=== PATIENT | female | born 1970 | race Caucasian/White ===

== ENCOUNTER 2020-06-01 08:40 | Outpatient (REF) | payer OTHER, SELFPAY ==
--- NOTE | 2020-06-01 08:44 | EMG_ITS ---
HISTORY OF PRESENT ILLNESS: This is a 49-year-old woman with bilateral hand pain and numbness. She is currently on no medications. PHYSICAL EXAMINATION: Muscle tone and strength are normal in all 4 extremities. Deep tendon reflexes symmetrical. Plantar responses are flexor. No Tinel or Phalen sign. IMPRESSION: Rule out carpal tunnel syndrome, rule out tendinitis. Nerve conduction EMG study: Normal electrodiagnostic study of both upper extremities with no evidence of carpal tunnel syndrome or nerve entrapment. Normal EMG of the left C5-T1 innervated muscles. MD RADHA Bishop/ANGELA / [phone]
== END 2020-06-01 08:41 | disposition home or self-care (01) ==
LOC: HO.NEURO 08:40
PROVIDERS: PCP Internal Medicine; Visit Provider Internal Medicine
DX: G56.03 Carpal tunnel syndrome, bilateral upper limbs (principal)
CPT/HCPCS: 95886; 95913

== ENCOUNTER 2021-07-28 10:55 | Outpatient (REF) | payer OTHER, SELFPAY ==
--- NOTE | ~2021-07-28 | XR_ITS ---
EXAMINATION: XR HAND, LEFT CLINICAL INFORMATION: Palmar-sided pain of the thumb and 2nd digit. COMPARISON: None TECHNIQUE: PA, lateral, and oblique views of the left hand. FINDINGS: The bones and soft tissues are normal. No fracture. Alignment is anatomic. Joint spaces are maintained. No erosions or soft tissue calcifications. XR/XR hand LT 2V IMPRESSION: Unremarkable examination.
== END 2021-07-28 10:56 | disposition home or self-care (01) ==
LOC: HO.XRAY 10:55
PROVIDERS: PCP Internal Medicine; Visit Provider Internal Medicine
DX: M79.642 Pain in left hand (principal)
CPT/HCPCS: 73120

== ENCOUNTER → 2022-09-21 09:12 | Outpatient (REF) | payer OTHER, SELFPAY ==
--- NOTE | 2022-09-21 09:19 | ECG_ITS ---
Test Reason : cp Blood Pressure : / mmHG Vent. Rate : 059 BPM Atrial Rate : 059 BPM P-R Int : 140 ms QRS Dur : 082 ms QT Int : 414 ms P-R-T Axes : 037 038 041 degrees QTc Int : 409 ms Sinus bradycardia with sinus arrhythmia Normal ECG When compared with ECG of 10-DEC-2013 14:34, No significant change was found Referred By: Gianni Poe Electronically Signed By:MARGY ACOSTA
== END ==
LOC: HO.CARD 09:12
PROVIDERS: PCP Internal Medicine; Visit Provider Internal Medicine
DX: R07.9 Chest pain, unspecified (principal)
CPT/HCPCS: 93005

== ENCOUNTER 2022-11-02 09:17 | Outpatient (REF) | payer OTHER, SELFPAY ==
[2022-11-02 09:28] LABS: MANUAL DIFF FLAG NO
[2022-11-02 09:49] LABS: Basophils Absolute Auto 0.1 X10*3/uL (0.0-0.2); Eosinophils Absolute Auto 0.2 X10*3/uL (0.0-0.4); Eosinophils Percent Auto 3.3 % (0-4); Hematocrit 44.8 % (37.0-47.0); Hemoglobin 14.5 g/dl (12.0-16.0); Imm Gran Abs Auto 0.01 X10*3/uL (0.00-0.03); Imm Gran Pct Auto 0.1 % (0.0-0.4); Lymphocytes Absolute Auto 1.9 X10*3/uL (1.2-4.9); Lymphocytes Percent Auto 27.2 % (20-40); Mean Corpuscular HGB Conc 32.4 g/dl (31.0-35.0); Mean Corpuscular Hemoglobin 27.9 pg (27.0-33.0); Mean Corpuscular Volume 86.2 fL (80.0-98.0); Mean Platelet Volume 11.1 fL (9.4-12.3); Monocytes Absolute Auto 0.6 X10*3/uL (0.1-1.2); Neutrophils Absolute Auto 4.2 x10*3/uL (2.0-8.3); Neutrophils Percent Auto 60.4 % (45-73); Platelet Count 290 X10*3/uL (160-400); Red Cell Distribution Width 13.5 % (11.0-16.0)
[2022-11-02 10:19] LABS: Alanine Aminotransferase 33 U/L (0-31); Albumin Level 4.5 g/dL (3.5-5.0); Alkaline Phosphatase 113 U/L (39-117); Anion Gap 11 (12-20); Aspartate Amino Transferase 20 U/L (5-31); Bilirubin Total 0.6 mg/dL (0.0-1.0); Blood Urea Nitrogen 17 mg/dL (9-16); Carbon Dioxide 26 mmol/L (22-29); Chloride 108 mmol/L (96-108); Cholesterol 253 mg/dL; Estimated Glomerular Filt Rate > 60; Glucose Fasting 106 mg/dL (60-99); HDL Cholesterol 40 mg/dL; LDL Cholesterol Calculated 171 mg/dl; Potassium 4.5 mmol/L (3.3-5.1); Sodium 140 mmol/L (135-145); Total Protein 7.7 g/dL (6.5-8.0); Triglycerides 210 mg/dL
[2022-11-02 10:34] LABS: Thyroid Stimulating Hormone 1.45 uIU/mL (0.32-4.0)
== END 2022-11-02 09:18 | disposition home or self-care (01) ==
LOC: HO.LAB 09:17
PROVIDERS: PCP Internal Medicine; Visit Provider Internal Medicine
DX: E03.9 Hypothyroidism, unspecified (principal); D64.9 Anemia, unspecified; N28.9 Disorder of kidney and ureter, unspecified; E78.5 Hyperlipidemia, unspecified
CPT/HCPCS: 36415; 80053; 80061; 84443; 85025

== ENCOUNTER → 2022-12-19 12:59 | Outpatient (BNVA) | payer OTHER, SELFPAY | PROVIDERS: PCP Internal Medicine; Referring Provider Internal Medicine; Visit Provider Internal Medicine ==

== ENCOUNTER → 2023-01-18 13:51 | Outpatient (REF) | payer OTHER, SELFPAY ==
--- NOTE | 2023-01-18 13:54 | CA_ITS ---
Transthoracic Echocardiogram Patient (Last, First, Middle): Helene Mejia Ann Gender: Female Date of : 1970 Age: 52 Procedure Date: 01/18/2023 Procedure Type: Transthoracic Echocardiogram Location: OP Height: 170.18 cm Weight: 102.06 kg BSA: 2.13 m2 Heart Rate: bpm BP: 128 / 70 mmHg Hand Printed Circuit Board Assembler: Referring MD: Javier Mccracken MD Laborer Landscape: Dong Ann MD Symptoms: R07.2 - Precordial pain Study Quality: Good ECG Rhythm: Sinus Conclusions: - Normal study Findings Left Ventricle Normal left ventricular size, thickness, and systolic function. The visually estimated ejection fraction is between 60-65%. Diastolic function is normal for age. Peak GLS is -24.5%, within normal limits. Right Ventricle Normal right ventricular cavity size and systolic function. Atria Both atria are normal in size. There is no evidence of interatrial shunt. Aortic Valve Normal aortic valve structure and function. There is no aortic valve stenosis. There is no aortic valve regurgitation. Mitral Valve Normal mitral valve structure and function. There is trace mitral valve regurgitation. There is no mitral valve stenosis. Pulmonic Valve The pulmonic valve is likely normal. There is trace pulmonic valve regurgitation. Tricuspid Valve Normal tricuspid valve structure. There is trace tricuspid valve regurgitation. The right ventricular systolic pressure is normal. The right ventricular systolic pressure is 15 mmHg. Normal right atrial pressure. There is no evidence of pulmonary hypertension. Great Vessels All visible segments of the aorta are normal in size. The pulmonary artery was not well visualized. Venous The inferior vena cava is normal in size and collapses greater than 50% with inspiration. Pericardium/Pleural There is no evidence of pericardial effusion. Prior Study Comparison No prior study available for comparison. Measurements 2D Linear Measurements IVSd: 1.04 0.6-0.9/0.6-1.0 cm LVIDd: 4.57 3.9-5.3/4.2-5.9 cm LVIDd Index: 2.15 2.4-3.2/2.2-3.1 cm/m2 LVIDs: 2.94 2.0-3.6 cm LVPWd: 1.00 0.7-1.1 cm Ao Root: 3.00 2.1-3.5 cm LA Diam: 3.60 2.7-3.8/3.0-4.0 cm LAIDs Index: 1.69 1.5-2.3 cm/m2 LV Mass: 201.10 67-162/88-224 g LV Mass Index: 94.41 43-95/49-115 g/m2 LVOT Diam: 2.20 3.0+(-)1.3 cm Mitral Valve MV Pk E: 0.83 MV PK A: 0.79 MV Decel Time: 187.00 E/A: 1.10 E'Lateral: 11.00 E'Medial: 7.94 E/E' Med: 10.50 E/E' Lat: 7.60 PHT: 55.00 MVA PHT: 4.00 Decel Cocke: 4.45 Aortic Valve AoV Pk Federico: 1.23 AoV Mn Federico: 0.80 AoV VTI: 0.27 AoV Pk Grad: 6.00 Aov Mn Grad: 3.00 CULLEN Cont.VTI: 3.67 LVOT LVOT Pk Federico: 1.16 LVOT Mn Federico: 0.74 LVOT VTI: 0.26 LVOT Pk Grad: 5.00 LVOT Mn Grad: 3.00 LVOT Diam: 2.20 LVOT Area: 3.80 Diastolic Function MV Pk E: 0.83 MV Pk A: 0.79 E/A: 1.10 E'Medial: 7.94 E/E' Med: 10.50 E' Laterial: 11.00 E/E' Lat: 7.60 Right Ventricle TAPSE (mm): 28.00 TVS' Federico: 12.00 Tricuspid Valve TR Pk Federico: 1.74 TR Pk Grad: 12.00 RA Press: 3.00 RVSP: 15.00 Great Vessels Aorta Ao Root-2D: 3.00 2.0-3.7 cm Ao Asc: 3.10 2.1-3.4 cm Pulmonary Valve PV Pk Federico: 1.06 Peak PV Grad: 4.00 Updated in Other Vendor System with Status of Final Dong Ann MD electronically signed on 01/19/2023 3:25:52 PM with status of Final
== END ==
LOC: HO.CARD 13:51
PROVIDERS: PCP Internal Medicine; Visit Provider Internal Medicine
DX: R07.2 Precordial pain (principal); R06.02 Shortness of breath
CPT/HCPCS: 93306; 93356

== ENCOUNTER → 2023-01-18 13:54 | Outpatient (BNV) | payer OTHER, SELFPAY | PROVIDERS: PCP Internal Medicine; Visit Provider Internal Medicine Cardiovascular Disease | DX: R07.2 Precordial pain (principal) | CPT/HCPCS: 93306 ==

== ENCOUNTER 2023-01-21 09:47 | Outpatient (REF) | payer OTHER, SELFPAY ==
[2023-01-21 11:05] LABS: Anion Gap 15 (12-20); Blood Urea Nitrogen 12 mg/dL (9-16); Calcium 9.6 mg/dL (8.4-10.2); Carbon Dioxide 22 mmol/L (22-29); Chloride 110 mmol/L (96-108); Estimated Glomerular Filt Rate > 60; Glucose Random 110 mg/dL (60-115); Potassium 3.8 mmol/L (3.3-5.1); Sodium 143 mmol/L (135-145)
== END 2023-01-21 09:48 | disposition home or self-care (01) ==
LOC: HO.LAB 09:47
PROVIDERS: PCP Internal Medicine; Visit Provider Internal Medicine
DX: R07.2 Precordial pain (principal)
CPT/HCPCS: 36415; 80048

== ENCOUNTER 2023-02-18 08:26 | Outpatient (AMB) | payer OTHER, SELFPAY ==
--- NOTE | 2023-02-18 08:34 | A.OFFPC_ITS ---
Vital Signs 02/18/23 08:35 Height 5 ft 6 in Weight 221 lb 6 oz BMI 35.7 BP 110/68 Blood Pressure Location Lt brachial Position Sitting Pulse 81 Pulse Source Pulse Oximeter Pulse Oximetry (%) 98 Oxygen Delivery Method Room Air Intake Visit Reasons: Follow up, rescheduled from 02/15 Intake Note: Patient is here to follow up on CT results Reed Or Wind Instrument Tuner Required: No Payroll Administrator: Not Required per policy Accompanied by: Self / Same As Patient Allergies peanut Allergy (Unknown, Verified 02/18/23 08:35) Unknown shrimp Allergy (Unknown, Verified 02/18/23 08:35) Unknown Medication List - Last Reconciled 02/18/23 by Gianni Poe MD diphenhydramine-acetaminophen 25-500 mg (Tylenol PM Extra Strength) 1 tab PO BEDTIME PRN loratadine-pseudoephedrine 10-240 mg ER (Claritin-D 24 Hour) 1 tab PO DAILY lorazepam 1 mg PO Q6-8H PRN multivitamin 1 tab PO DAILY naproxen (Naprosyn) 500 mg PO BID PRN Tobacco use date assessed: 02/18/23 Dental Screening Dental Screen Date: 02/18/23 Did you have a dental visit in the last 12 months?: Yes Did you have a dental problem in the last 6 months where you did not have access to dental care?: No Was dental information given to patient?: Patient has dentist HPI Follow up, rescheduled from 02/15 HPI Details had a chest ct to r/o CAD and has a HH and some hepatic steatosis; has improved her diet and losing weight PFSH Medical History (Updated 02/18/23 @ 08:56 by Gianni Poe MD) Carpal tunnel syndrome, bilateral Surgical History No pertinent past surgical history Family History Father CVD (cardiovascular disease) S/P triple vessel bypass Mother Cancer Bladder cancer Sister Thyroid nodule Paternal Grandmother Stroke Social History Housing: House Alcohol intake: current Alcohol intake frequency: holidays/special occasions only Patient Tobacco Use Status: Former Tobacco user e-Cigarette/Vaping Use: Never Used Second Hand Smoke Exposure: No service: No Current occupational status: employed Cognitive needs: No Hearing needs: No Vision needs: Yes (glasses) Questionnaire PHQ-9 Over the last 2 weeks, how often have you been bothered by any of the following problems? Depression Screening Interpretation: Negative Source: Developed by Drs. James Malik, Gregoria San, George Baeza and colleagues, with an educational mario from [employer]. Thrive Questionnaire Date Thrive assessed: 11/02/22 Currently or been in a relationship where the following occur: no concerns reported SATHISH-7 AMB Questionnaire SATHISH-7 Date SATHISH - 7 assessed: 11/02/22 Source: Developed by Drs. James Malik, Gregoria San, George Baeza and colleagues, with an educational mario from [employer]. Review of Systems Const Denies chills, Denies headache(s) and Denies weight loss ENT Denies headache(s) Card Denies chest pain, Denies syncope, Denies irregular heart rhythm and Denies dyspnea Resp Denies chest congestion, Denies cough and Denies dyspnea GI Denies abdominal pain, Denies change in stool character, Denies nausea and Denies vomiting Musc Denies deformity and Denies joint swelling Neuro Denies syncope and Denies headache(s) Physical exam (Primary Care) Vital Signs: Last Vital Signs Pulse 81 02/18/23 08:35 BP 110/68 02/18/23 08:35 Pulse Ox 98 02/18/23 08:35 Oxygen Delivery Method Room Air 02/18/23 08:35 BMI result Body Mass Index 35.7 obesity BMI Assessment/Plan discussion: High BMI High, discussed plan: lifestyle, weight reduction, dietary and physical activity Tobacco/Smoking Status: Tobacco use Status Tobacco use date assessed 02/18/23 02/18/23 08:40 Patient Tobacco Use Status Former Tobacco user 02/18/23 08:40 Tobacco use type 12/27/22 14:10 e-Cigarette/Vaping Use Never Used 02/18/23 08:40 Depression Screening Interpretation: Negative Thrive Assessment: Date of Thrive Assessment Date Thrive assessed 11/02/22 02/18/23 08:40 Currently or been in a relationship where the following occur: no concerns reported Const General: cooperative, healthy appearing and no acute distress Orientation/consciousness: oriented to person, oriented to place and oriented to time HENMT Head: Yes normal to inspection, Yes normocephalic and Yes atraumatic Mouth: Normal oral and palatal mucosa present and tongue normal Throat: Yes posterior oropharynx normal and Yes uvula midline Eyes General: appearance normal, both eyes and all related structures Neck Neck: Yes normal visual inspection, Yes full ROM and Yes no lymphadenopathy Thyroid: Thyroid normal Carotids: normal carotid upstroke Chest Chest palpation & inspection: normal inspection of the chest Resp Effort & Inspection: normal respiratory effort and able to speak in complete sentences Auscultation: clear to auscultation bilaterally Cardio Jugular venous distension: no JVD Palpation: normal PMI Rate: regular rate Rhythm: regular rhythm Heart sounds: S1 normal heart sound present and S2 normal heart sound present GI Inspection: Yes normal to inspection Palpation (GI): Soft to palpation and No hepatosplenomegaly present Auscultation: normal bowel sounds General: Yes no CVA tenderness Back/Spine/Pelvis Back: no CVA tenderness Skin General skin exam: no rashes or lesions noted Neuro General: oriented to person, oriented to place and oriented to time Extrem General: Yes normal to inspection and Yes full ROM Assessment and Plan Assessment & Plan (1) Hiatal hernia: Code(s): K44.9 - Diaphragmatic hernia without obstruction or gangrene Plan: discussed diet (2) Hepatic steatosis: Code(s): K76.0 - Fatty (change of) liver, not elsewhere classified Plan: discussed weight loss (3) Hyperlipidemia: Code(s): E78.5 - Hyperlipidemia, unspecified Plan: discussed diet Orders: Orders Lipid Panel Today E78.5 - Hyperlipidemia, unspecified Comprehensive [place]. Panel Fast Today N28.9 - Disorder of kidney and ureter, unspecified Coding Level of Care Code Est Pt Level 4 (42233) Diagnoses Hiatal hernia K44.9 Hepatic steatosis K76.0 Hyperlipidemia E78.5
[2023-02-18 08:35] VITALS: BP 110/68; PULSE 81; O2SAT 98; BMI 35.7
== END 2023-02-18 09:48 | disposition home or self-care (01) ==
PROVIDERS: PCP Internal Medicine; Visit Provider Internal Medicine
DX: K44.9 Diaphragmatic hernia without obstruction or gangrene (principal); K76.0 Fatty (change of) liver, not elsewhere classified; E78.5 Hyperlipidemia, unspecified
CPT/HCPCS: 99214

== ENCOUNTER 2023-08-02 08:08 | Day surgery (SDC) | payer BC, SELFPAY ==
[2023-07-31 14:29] VITALS: BMI 33.8
--- NOTE | 2023-08-01 11:49 | HO.ANESPROP2 ---
Documented by User: Myesha Mroin NP 08/01/23 11:50 HPI - Anesthesia Eval Consult details Narrative: 52yo F for Colonoscopy PMFSH Active Problems Active Problems: All Active Problems (Updated 07/31/23 @ 14:29 by Roxy Mcdermott RN) Hyperlipidemia (Acute) Hepatic steatosis (Acute) Hiatal hernia (Acute) SOB (shortness of breath) (Acute) Precordial chest pain (Acute) Obesity (Acute) Anxiety (Acute) Physical exam (Acute) Joint pain in both hands (Acute) Carpal tunnel syndrome, bilateral (Acute) Past Medical History Medical History Hyperlipidemia Fatty liver Carpal tunnel syndrome, bilateral Family History Family History Father CVD (cardiovascular disease) S/P triple vessel bypass Mother Cancer Bladder cancer Sister Thyroid nodule Paternal Grandmother Stroke Surgical History Surgical History Hx of wisdom tooth extraction Hx of reduction mammoplasty Social History Social History Housing: House Alcohol intake: current Alcohol intake frequency: holidays/special occasions only Patient Tobacco Use Status: Former Tobacco user Quit Date: 1989 e-Cigarette/Vaping Use: Never Used Second Hand Smoke Exposure: No Use of substances other than those prescribed or required for medical reasons: No Are you DNR?: No Advance Directives: No Advance Directives Information Provided: Yes service: No Current occupational status: employed Cognitive needs: No Hearing needs: No Vision needs: Yes (glasses) Meds Allergies Allergy/AdvReac Type Severity Reaction Status Date / Time peanut Allergy Unknown Unknown Verified 08/02/23 08:26 shrimp Allergy Unknown Unknown Verified 08/02/23 08:26 Home Medications Medication Instructions Recorded Confirmed Last Taken Type multivitamin 1 tab PO DAILY 05/04/20 07/31/23 Unknown History loratadine-pseudoephedrine ER 10 1 tab PO DAILY 02/18/23 07/31/23 Unknown History mg-240 mg tablet,extended [id number] (Claritin-D 24 Hour) Exam Height,Weight and Vital Signs: Height 5 ft 7 in Weight 97.976 kg Assessment and Plan Assessment Anesthesia Assessment: Chart Reviewed Documented by User: Ty Tello MD 08/02/23 10:09 PMF Past Medical History Medical History Hyperlipidemia Fatty liver Carpal tunnel syndrome, bilateral Family History Family History Father CVD (cardiovascular disease) S/P triple vessel bypass Mother Cancer Bladder cancer Sister Thyroid nodule Paternal Grandmother Stroke Family history of problems with anesthesia: No Surgical History Surgical History Hx of wisdom tooth extraction Hx of reduction mammoplasty History of Problems with Anesthesia: No Social History Social History Housing: House Alcohol intake: current Alcohol intake frequency: holidays/special occasions only Patient Tobacco Use Status: Former Tobacco user Quit Date: 1989 e-Cigarette/Vaping Use: Never Used Second Hand Smoke Exposure: No Use of substances other than those prescribed or required for medical reasons: No Are you DNR?: No Advance Directives: No Advance Directives Information Provided: Yes service: No Current occupational status: employed Cognitive needs: No Hearing needs: No Vision needs: Yes (glasses) Meds Allergies Allergy/AdvReac Type Severity Reaction Status Date / Time peanut Allergy Unknown Unknown Verified 08/02/23 08:26 shrimp Allergy Unknown Unknown Verified 08/02/23 08:26 Home Medications Medication Instructions Recorded Confirmed Last Taken Type multivitamin 1 tab PO DAILY 05/04/20 07/31/23 Unknown History loratadine-pseudoephedrine ER 10 1 tab PO DAILY 02/18/23 07/31/23 Unknown History mg-240 mg tablet,extended [id number] (Claritin-D 24 Hour) Exam Airway Mallampati Class: II TM Dist: >3cm Neck ROM: Full Loose/Missing/Broken Teeth: No Heart: rrr+s1s2 Lungs: cta b/l Assessment and Plan Assessment Anesthesia Assessment: Anesthesia Plan Discussed Final Anesthetic Review Family History of Problems with Anesthesia: No History of Problems with Anesthesia: No NPO: Yes ASA Class: II Final Preanesthetic Review: No Changes in Pt Med Stat, Meds/Allgs Chart Reviewed, Consent Obtained/Reviewed and Anes Risks/Benef Reviewed Patient Risk: Intermediate Procedure Risk: Intermediate Assessment/Block/Sedation in SS: Assess/Block/Sedation-SS Anesthetic Plan Anesthetic Plan: MAC: Disposition: Standard PACU
--- OUTSIDE RECORDS SUMMARY | 2023-08-02 08:12 | XMS_ITS | Continuity of Care Document ---
Author Name Unknown Organization [facility] [place] [address] [facility] [place] [address]- Care Team Providers Care Towboat Engineer Name Role Phone Lui RIVERA, Gianni Soriano Primary Care Physician Encounter 06/22/20 - 06/29/20 [facility] [address], [address] [place] [address]- Attending Physician: Jackelin Hartmann NP Admitting Physician: Jackelin Hartmann NP Referring Physician: Jackelin Hartmann NP Allergies, Adverse Reactions, Alerts Substance Reaction Severity Status NKA Active Medications metformin 500 mg oral tablet 2 tablet = 1,000 mg, By Mouth, 2 times a day, s then 2 tablets twice a day, # 120 tablet, 2 Refills, Maintenance, Tablet Start Date: 08/29/12 Stop Date: 11/27/12 Status: Ordered Zyrtec-D 1 tablet, By Mouth, 2 times a day, 0 Refills, Maintenance Start Date: 12/30/12 Status: Ordered
--- OUTSIDE RECORDS SUMMARY | 2023-08-02 08:12 | XMS_ITS | Continuity of Care Document ---
Author Name Unknown Organization [facility] Address [address] [place] [address]- Care Team Providers Care Porcelain Enameler Name Role Phone Gianni Poe MD Primary Care Physician [place] [facility] [place] - 02/09/[address] [address] Allergies, Adverse Reactions, Alerts No Known Allergies Medications metformin 500 mg oral tablet 2 tablet = 1,000 mg, By Mouth, 2 times a day, s then 2 tablets twice a day, # 120 tablet, 2 Refills, Maintenance, Tablet Start Date: 08/29/12 Stop Date: 11/27/12 Status: Ordered Zyrtec-D 1 tablet, By Mouth, 2 times a day, 0 Refills, Maintenance Start Date: 12/30/12 Status: Ordered Patient Care team information Care Team Personnel Name: Gianni Poe MD Position: Reference Physician Member Role: PCP Address: Address: [address] [place] [address]- Care Team Related Persons Name: ANDREA VALLEJO Address: home [address] [place] [address]
--- OUTSIDE RECORDS SUMMARY | 2023-08-02 08:12 | XMS_ITS | Continuity of Care Document ---
Author Name Unknown Organization [facility] [place] Address [address] [facility] [place] [address]- Care Team Providers Care Clinical Trainer Name Role Phone Lui RIVERA, Gianni Soriano Primary Care Physician Encounter 09/28/22 - 10/05/22 [facility] [place] [address] [facility], [address] [place] [address]- Attending Physician: Jackelin Hartmann NP Admitting Physician: Jackelin Hartmann NP Referring Physician: Jackelin Hartmann NP Allergies, Adverse Reactions, Alerts No Known Allergies Medications metformin 500 mg oral tablet 2 tablet = 1,000 mg, By Mouth, 2 times a day, s then 2 tablets twice a day, # 120 tablet, 2 Refills, Maintenance, Tablet Start Date: 08/29/12 Stop Date: 11/27/12 Status: Ordered Zyrtec-D 1 tablet, By Mouth, 2 times a day, 0 Refills, Maintenance Start Date: 12/30/12 Status: Ordered Results Radiology Reports * Exam Date Time Procedure Performing Provider Status 09/28/22 11:17 AM MM Digital Mammo Screening Didi Yañez; Auth (Verified) Notes: (MM Digital Mammo Screening) Reason For Exam: Z12.31 SCREENING RESULT: MM Digital Mammo Screening PROCEDURE: MM Digital Mammo Screening INDICATION: Screening. No known palpable abnormalities. COMPARISON: Dating back to 05/25/2019 TECHNIQUE: Full-field digital CC and MLO 3D tomosynthesis images of both breasts were acquired. Computer-aided detection (CAD) was utilized in the interpretation of this study. DENSITY: The breast tissue is almost entirely fatty. FINDINGS: No suspicious masses, suspicious microcalcifications, or areas of architectural distortion are seen in either breast to suggest malignancy. IMPRESSION: No mammographic evidence of malignancy. RECOMMENDATION: Annual mammographic screening BI-RADS: 1 (Negative) Lay letter mailed to patient WSN: [id number] Ordering Physician: Jackelin Hartmann Dictated By: Jefry Villegas MD Dictated Date/Time: 09/28/22 11:35 am Reviewed By: Jefry Villegas MD Signed By: Jefry Villegas MD Signed Date/Time: 09/28/22 11:35 am Transcribed By: DELANEY Marine Extension Agent Date/Time: 09/28/22 11:35 am Birads: MG Breast Screening * BHSPowerscribe , CIS S: TRANSCRIBE Jefry Villegas MD: VERIFY Event Display: Result: Authored Date: [id number] PROCEDURE: MM Digital Mammo Screening INDICATION: Screening. No known palpable abnormalities. COMPARISON: Dating back to 05/25/2019 TECHNIQUE: Full-field digital CC and MLO 3D tomosynthesis images of both breasts were acquired. Computer-aided detection (CAD) was utilized in the interpretation of this study. DENSITY: The breast tissue is almost entirely fatty. FINDINGS: No suspicious masses, suspicious microcalcifications, or areas of architectural distortion are seen in either breast to suggest malignancy. IMPRESSION: No mammographic evidence of malignancy. RECOMMENDATION: Annual mammographic screening BI-RADS: 1 (Negative) Lay letter mailed to patient WSN: [id number] Ordering Physician: Jackelin Hartmann Dictated By: Jefry Villegas MD Dictated Date/Time: 09/28/22 11:35 am Reviewed By: Jefry Villegas MD Signed By: Jefry Villegas MD Signed Date/Time: 09/28/22 11:35 am Transcribed By: DELANEY Marine Extension Agent Date/Time: 09/28/22 11:35 am Birads: Patient Care team information Care Team Personnel Name: Gianni Poe MD Position: Reference Physician Member Role: PCP Address: Address: [address] [place] [address]- Care Team Related Persons Name: ANDREA VALLEJO Address: home [address] [place] [id number]
--- OUTSIDE RECORDS SUMMARY | 2023-08-02 08:12 | XMS_ITS | Continuity of Care Document ---
Author Name Unknown Organization [facility] [place] Address [address] [facility] [place] [address]- Care Team Providers Care Wire Brush Operator Name Role Phone Lui RIVERA, Gianni Soriano Primary Care Physician Encounter 07/28/21 - 08/04/21 [facility] [address], [address] [place] [address]- Attending Physician: Jackelin Hartmann NP Admitting Physician: [...]
[2023-08-02 08:28] VITALS: BMI 34.3
[2023-08-02 08:35] LABS: UPreg QC Valid YES; Urine Pregnancy NEGATIVE (NEGATIVE)
[2023-08-02 08:57] VITALS: BP 165/91; PULSE 87; RESP 15; TEMP 36.7; O2SAT 97
[2023-08-02] MEDS: Lactated Ringers 1,000 ML 100 ML IVCONT (08:58)
[2023-08-02 10:00] VITALS: BP 127/85; PULSE 74; RESP 10; TEMP 36.6; O2SAT 95
--- NOTE | 2023-08-02 10:04 | P.BOP_ITS ---
Brief Operative Note Date of Service: 08/02/23 Pre-op diagnosis: Screening Post-op diagnosis: other (Diverticulosis) Procedure: Colonoscopy to the cecum and TI Surgeon: James Yang MD Anesthesia: MAC Was an Ethnoarchaeologist used for this Procedure?: No Estimated blood loss (mL): 0 Pathology: none sent Condition: stable Disposition: PACU
[2023-08-02 10:15] VITALS: BP 138/89; PULSE 74; RESP 16; TEMP 36.3; O2SAT 96
--- NOTE | 2023-08-02 10:35 | OP_ITS ---
DATE OF SERVICE: 08/02/2023 SURGEON: James Yang MD INDICATIONS: The patient presents for evaluation of colorectal cancer screening. Full consent obtained from her for this, including risks of bleeding and perforation. PREOPERATIVE DIAGNOSIS: Colorectal cancer screening. POSTOPERATIVE DIAGNOSIS: PROCEDURE PERFORMED: Colonoscopy to cecum and terminal ileum. ESTIMATED BLOOD LOSS: COMPLICATIONS: ANESTHESIA: Monitored anesthesia care. ASSISTANTS: SPECIMENS: POSTOPERATIVE DIAGNOSES: Colorectal cancer screening, diverticulosis, and internal hemorrhoids. DESCRIPTION OF PROCEDURE: The patient was placed in the left lateral decubitus position. The digital rectal exam revealed no abnormalities. The Olympus video pediatric colonoscope was entered into the rectum and advanced easily to the cecum. Once in the cecum, I did identify normal-appearing cecal pouch with appendiceal orifice and a normal-appearing ileocecal valve. The terminal ileum was cannulated and appeared normal. The scope withdrawn back in the colon. The entire cecum and ileocecal valve appeared normal. The scope was slowly withdrawn assessing all mucosal surfaces carefully. Preparation became very good after a lot of irrigation and suctioning. I did not visualize any sign of polyps, colitis, nor angiodysplasia. There was a mild amount of sigmoid diverticulosis. In the rectum, scope was retroflexed visualizing internal hemorrhoids, but no other pathology. The rectal mucosa appeared normal. The scope was straightened and withdrawn from the patient. She tolerated the procedure well and was returned to recovery area in stable condition. IMPRESSION: 1. Mild diverticulosis. 2. Internal hemorrhoids. PLAN: Given the negative exam and no family history of colon cancer, I would recommend a followup coloscopy in 10 years. She will otherwise see me on a p.r.n. basis. MD KERRY Cheng/ANGELA / [phone]
== END 2023-08-02 10:50 | disposition home or self-care (01) ==
PROVIDERS: Anesthesiology; PCP Internal Medicine; Visit Provider Internal Medicine
PROC: 0DJD8ZZ Inspection of Lower Intestinal Tract, Via Natural or Artificial Opening Endoscopic (ICD-10-PCS; CPT 45378; principal; 2023-08-02 09:00)
DX: Z12.11 Encounter for screening for malignant neoplasm of colon (principal); K57.30 Diverticulosis of large intestine without perforation or abscess without bleeding; K64.8 Other hemorrhoids; E78.5 Hyperlipidemia, unspecified; Z79.899 Other long term (current) drug therapy
CPT/HCPCS: 45378; 81025; J2704

== ENCOUNTER 2023-12-13 08:44 | Outpatient (AMB) | payer BC, SELFPAY ==
[2023-12-13 08:46] VITALS: BP 142/86; PULSE 52; O2SAT 98; BMI 36.0
--- NOTE | 2023-12-13 08:46 | A.OFFPC_ITS ---
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 Accompanied by: Self / Same As Patient Allergies peanut Allergy (Unknown, Verified 12/13/23 08:47) Unknown shrimp Allergy (Unknown, Verified 12/13/23 08:47) Unknown Medication List - Last Reconciled 12/13/23 by Gianni Poe MD loratadine-pseudoephedrine 10-240 mg ER (Claritin-D 24 Hour) 1 tab PO DAILY multivitamin 1 tab PO DAILY naproxen (Naprosyn) 500 mg PO BID PRN Tobacco use date assessed: 12/13/23 Dental Screening Dental Screen Date: 12/13/23 Did you have a dental visit in the last 12 months?: No Did you have a dental problem in the last 6 months where you did not have access to dental care?: No Was dental information given to patient?: Patient has dentist HPI PE HPI Details healthy PFSH Medical History Hyperlipidemia Fatty liver Carpal tunnel syndrome, bilateral Surgical History Hx of wisdom tooth extraction Hx of reduction mammoplasty Family History Father CVD (cardiovascular disease) S/P triple vessel bypass Mother Cancer Bladder cancer Sister Thyroid nodule Paternal Grandmother Stroke Social History Housing: House Alcohol intake: current Alcohol intake frequency: holidays/special occasions only Patient Tobacco Use Status: Former Tobacco user e-Cigarette/Vaping Use: Never Used Second Hand Smoke Exposure: No service: No Current occupational status: employed Cognitive needs: No Hearing needs: No Vision needs: Yes (glasses) Questionnaire PHQ-9 Over the last 2 weeks, how often have you been bothered by any of the following problems? 1. Little interest or pleasure in doing things: not at all 2. Feeling down, depressed, or hopeless: not at all 3. Trouble falling or staying asleep, or sleeping too much: not at all 4. Feeling tired or having little energy: not at all 5. Poor appetite or overeating: not at all 6. Feeling bad about yourself - or that you are a failure or have let yourself or your family down: not at all 7. Trouble concentrating on things, such as reading the newspaper or watching television: not at all 8. Moving or speaking so slowly that other people could have noticed. Or the opposite - being so fidgety or restless that you have been moving around a lot more than usual: not at all 9. Thoughts that you would be better off or of hurting yourself in some way: not at all Total score: 0 Depression Screening Interpretation: Negative Depression Screening Done: Yes 82838 - PHQ-9 Billing: Yes Source: Developed by Drs. James Malik, Gregoria San, George Baeza and colleagues, with an educational mario from [employer]. Thrive Questionnaire Date Thrive assessed: 12/13/23 I am a: Patient What is your living situation today?: I have a steady place to live Within the past 12 months, did the food you bought not last and you didn't have the money to get more?: Never true Within the past 12 months, did you worry whether your food would run out before you got money to buy more?: Never true Do you have trouble paying for medicines?: No Do you have trouble getting transportation to medical appointments?: No Do you have trouble paying your heating and electricity bill?: No Do you have trouble taking care of your child, family member or friend?: No Do you have trouble with day-to-day activities such as bathing, preparing meals, shopping, managing finances, etc.?: No Are you currently unemployed and looking for a job?: No Are you interested in more education?: No Please select the resources that you would like help with: None Currently or been in a relationship where the following occur: no concerns reported THRIVE Score: 0 AUDIT C Alcohol Use Questionnaire (AUDIT-C) 1. How often do you have a drink containing alcohol?: 2-4 times a month 2. How many drinks containing alcohol do you have on a typical day when you are drinking?: 1 or 2 3. How often do you have six or more drinks on one occasion?: Never Total Score: 2 Score Reviewed/Action Taken: Yes SATHISH-7 AMB Questionnaire SATHISH-7 Date SATHISH - 7 assessed: 12/13/23 Feeling nervous, anxious, or on edge: 1 = Several days Not being able to stop or control worryin = Several days (patient states i dont know ) Worrying too much about different things: 0 = Not at all Trouble relaxin = Not at all Being so restless that it is hard to sit still: 0 = Not at all Becoming easily annoyed or irritable: 0 = Not at all Feeling afraid as if something awful might happen: 0 = Not at all Total SATHISH-7 score (0-4 normal; 5-9 mild; 10-14 moderate; 15-21 severe): 2 Source: Developed by Drs. James Malik, Gregoria San, George Baeza and colleagues, with an educational mario from [employer]. SATHISH-7 Assessment Billing SATHISH-7 Assessment Tool: SATHISH-7 Assessment 96790 Review of Systems Const Denies chills, Denies fatigue, Denies headache(s) and Denies weight loss Eyes Denies change in vision, Denies diplopia and Denies eye pain ENT Denies vertigo, Denies dizziness, Denies headache(s) and Denies nasal discharge Card Denies chest pain, Denies rapid heart rate and Denies dyspnea on exertion Resp Denies chest congestion, Denies cough, Denies pain with cough and Denies dyspnea on exertion GI Denies abdominal pain, Denies hematochezia and Denies change in bowel habits Musc Denies myalgias, Denies arthralgias and Denies joint swelling Skin/Breast Denies lesions and Denies unusual bruising Neuro Denies vertigo, Denies dizziness, Denies headache(s) and Denies focal weakness Endo Denies fatigue Physical exam (Primary Care) Vital Signs: Last Vital Signs Pulse 52 12/13/23 08:46 BP 142/86 H 12/13/23 08:46 Pulse Ox 98 12/13/23 08:46 Oxygen Delivery Method Room Air 12/13/23 08:46 BMI result Body Mass Index 36.0 Tobacco/Smoking Status: Tobacco use Status Tobacco use date assessed 12/13/23 12/13/23 08:48 Patient Tobacco Use Status Former Tobacco user 12/13/23 08:48 Tobacco use type 12/27/22 14:10 e-Cigarette/Vaping Use Never Used 12/13/23 08:48 PHQ-9: PHQ-9 Score PHQ-9: Total score 0 12/13/23 08:48 Depression Screening Interpretation: Negative Thrive Assessment: Date of Thrive Assessment Date Thrive assessed 12/13/23 12/13/23 08:48 Currently or been in a relationship where the following occur: no concerns reported Const General: cooperative, healthy appearing and no acute distress Orientation/consciousness: oriented to person, oriented to place and oriented to time HENMT Head: Yes normal to inspection, Yes normocephalic and Yes atraumatic Mouth: Normal oral and palatal mucosa present and tongue normal Throat: Yes posterior oropharynx normal and Yes uvula midline Eyes General: appearance normal, both eyes and all related structures Neck Neck: Yes normal visual inspection, Yes full ROM and Yes no lymphadenopathy Thyroid: Thyroid normal Carotids: normal carotid upstroke Chest Chest palpation & inspection: normal inspection of the chest Resp Effort & Inspection: normal respiratory effort and able to speak in complete sentences Auscultation: clear to auscultation bilaterally Cardio Jugular venous distension: no JVD Palpation: normal PMI Rate: regular rate Rhythm: regular rhythm Heart sounds: S1 normal heart sound present and S2 normal heart sound present GI Inspection: Yes normal to inspection Palpation (GI): Soft to palpation and No hepatosplenomegaly present Auscultation: normal bowel sounds General: Yes no CVA tenderness Back/Spine/Pelvis Back: no CVA tenderness Skin General skin exam: no rashes or lesions noted Neuro General: oriented to person, oriented to place and oriented to time Extrem General: Yes normal to inspection and Yes full ROM Assessment and Plan Assessment & Plan (1) Physical exam: Code(s): Z00.00 - Encounter for general adult medical examination without abnormal fin dings Plan: stable; do labs Orders: Orders Lipid Panel Today Z13.220 - Encounter for screening for lipoid disorders Thyroid Stimulating Hormone Today Z13.29 - Encounter for screening for other suspected endocrine disorder Complete Blood Count Auto Diff Today Z13.0 - Encounter for screening for diseases of the blood and blood-forming organs and certain disorders involving the immune mechanism Comprehensive [place]. Panel Fast Today Z13.9 - Encounter for screening, unspecified Coding Level of Care Code Est Pt Prev Care 40-64y(11325) Diagnoses Physical exam Z00.00 Additional Codes SATHISH-7 Assessment Billing - SATHISH-7 Assessment Tool: SATHISH-7 Assessment 60129 ([id number])
== END 2023-12-13 09:15 | disposition home or self-care (01) ==
PROVIDERS: PCP Internal Medicine; Visit Provider Internal Medicine
DX: Z00.00 Encounter for general adult medical examination without abnormal findings (principal)
CPT/HCPCS: 99396

== ENCOUNTER 2023-12-21 09:49 | Outpatient (REF) | payer BC, SELFPAY ==
[2023-12-21 11:17] LABS: MANUAL DIFF FLAG NO
[2023-12-21 11:22] LABS: Basophils Absolute Auto 0.1 X10*3/uL (0.0-0.2); Basophils Percent Auto 0.8 % (0-2); Eosinophils Absolute Auto 0.2 X10*3/uL (0.0-0.4); Eosinophils Percent Auto 3.6 % (0-4); Hemoglobin 13.5 g/dl (12.0-16.0); Imm Gran Abs Auto 0.02 X10*3/uL (0.00-0.03); Imm Gran Pct Auto 0.3 % (0.0-0.4); Lymphocytes Absolute Auto 2.1 X10*3/uL (1.2-4.9); Lymphocytes Percent Auto 31.2 % (20-40); Mean Corpuscular HGB Conc 32.1 g/dl (31.0-35.0); Mean Corpuscular Hemoglobin 28.4 pg (27.0-33.0); Mean Corpuscular Volume 88.4 fL (80.0-98.0); Mean Platelet Volume 11.7 fL (9.4-12.3); Monocytes Absolute Auto 0.6 X10*3/uL (0.1-1.2); Monocytes Percent Auto 9.4 % (2-11); Neutrophils Absolute Auto 3.6 x10*3/uL (2.0-8.3); Neutrophils Percent Auto 54.7 % (45-73); Platelet Count 265 X10*3/uL (160-400); Red Blood Count 4.75 X10*6/uL (4.20-5.50); Red Cell Distribution Width 13.7 % (11.0-16.0); White Blood Count 6.6 X10*3/uL (4.8-10.8)
[2023-12-21 11:48] LABS: Alanine Aminotransferase 31 U/L (0-31); Albumin Level 4.3 g/dL (3.5-5.0); Alkaline Phosphatase 112 U/L (39-117); Anion Gap 12 (12-20); Aspartate Amino Transferase 21 U/L (5-31); Bilirubin Total 0.5 mg/dL (0.0-1.0); Blood Urea Nitrogen 15 mg/dL (9-16); Calcium 9.8 mg/dL (8.4-10.2); Carbon Dioxide 25 mmol/L (22-29); Chloride 109 mmol/L (96-108); Cholesterol 262 mg/dL (<200); Estimated Glomerular Filt Rate > 60; Glucose Fasting 104 mg/dL (60-99); HDL Cholesterol 43 mg/dL (>40); LDL Cholesterol Calculated 181 mg/dL (<100); Potassium 4.1 mmol/L (3.3-5.1); Sodium 142 mmol/L (135-145); Total Protein 7.7 g/dL (6.5-8.0); Triglycerides 194 mg/dL (<150)
[2023-12-21 12:08] LABS: Thyroid Stimulating Hormone 2.01 uIU/mL (0.32-4.0)
== END 2023-12-21 09:50 | disposition home or self-care (01) ==
LOC: HO.HMGCLDS 09:49
PROVIDERS: PCP Internal Medicine; Visit Provider Internal Medicine
DX: Z13.0 Encounter for screening for diseases of the blood and blood-forming organs and certain disorders involving the immune mechanism (principal); Z13.9 Encounter for screening, unspecified; Z13.220 Encounter for screening for lipoid disorders; Z13.29 Encounter for screening for other suspected endocrine disorder
CPT/HCPCS: 36415; 80053; 80061; 84443; 85025

== ENCOUNTER 2024-06-22 08:47 | Outpatient (AMB) | payer BC, SELFPAY ==
[2024-06-22 08:57] VITALS: BP 138/90; PULSE 84; O2SAT 96; BMI 37.0
--- NOTE | 2024-06-22 08:57 | A.OFFPC_ITS ---
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 Accompanied by: Self / Same As Patient Allergies peanut Allergy (Unknown, Verified 06/22/24 09:00) Unknown shrimp Allergy (Unknown, Verified 06/22/24 09:00) Unknown Medication List - Last Reconciled 06/22/24 by Gianni Poe MD loratadine-pseudoephedrine 10-240 mg ER (Claritin-D 24 Hour) 1 tab PO DAILY multivitamin 1 tab PO DAILY Tobacco use date assessed: 06/22/24 Dental Screening Dental Screen Date: 06/22/24 Did you have a dental visit in the last 12 months?: No Did you have a dental problem in the last 6 months where you did not have access to dental care?: No Was dental information given to patient?: Patient declined HPI [facility] 07/22 nauroma surgery HPI Details Having right foot neuroma surgery; healthy; no history of CAD PFSH Medical History Hyperlipidemia Fatty liver Carpal tunnel syndrome, bilateral Surgical History Hx of wisdom tooth extraction Hx of reduction mammoplasty Family History Father CVD (cardiovascular disease) S/P triple vessel bypass Mother Cancer Bladder cancer Sister Thyroid nodule Paternal Grandmother Stroke Social History Housing: House Alcohol intake: current Alcohol intake frequency: holidays/special occasions only Patient Tobacco Use Status: Former Tobacco user e-Cigarette/Vaping Use: Never Used Second Hand Smoke Exposure: No service: No Current occupational status: employed Cognitive needs: No Hearing needs: No Vision needs: Yes (glasses) Questionnaire PHQ-9 Over the last 2 weeks, how often have you been bothered by any of the following problems? 1. Little interest or pleasure in doing things: not at all 2. Feeling down, depressed, or hopeless: not at all 3. Trouble falling or staying asleep, or sleeping too much: not at all 4. Feeling tired or having little energy: not at all 5. Poor appetite or overeating: not at all 6. Feeling bad about yourself - or that you are a failure or have let yourself or your family down: not at all 7. Trouble concentrating on things, such as reading the newspaper or watching television: not at all 8. Moving or speaking so slowly that other people could have noticed. Or the opposite - being so fidgety or restless that you have been moving around a lot more than usual: not at all 9. Thoughts that you would be better off or of hurting yourself in some way: not at all Total score: 0 Depression Screening Interpretation: Negative Depression Screening Done: Yes 59419 - PHQ-9 Billing: Yes Source: Developed by Drs. James Malik, Gregoria San, George Baeza and colleagues, with an educational mario from [employer]. Thrive Questionnaire Date Thrive assessed: 06/22/24 I am a: Patient What is your living situation today?: I have a steady place to live Within the past 12 months, did the food you bought not last and you didn't have the money to get more?: Never true Within the past 12 months, did you worry whether your food would run out before you got money to buy more?: Never true Do you have trouble paying for medicines?: No Do you have trouble getting transportation to medical appointments?: No Do you have trouble paying your heating and electricity bill?: No Do you have trouble taking care of your child, family member or friend?: No Do you have trouble with day-to-day activities such as bathing, preparing meals, shopping, managing finances, etc.?: No Are you currently unemployed and looking for a job?: No Are you interested in more education?: No Please select the resources that you would like help with: None THRIVE Score: 0 AUDIT C Alcohol Use Questionnaire (AUDIT-C) 1. How often do you have a drink containing alcohol?: Never 3. How often do you have six or more drinks on one occasion?: Never Total Score: 0 SATHISH-7 AMB Questionnaire SATHISH-7 Date SATHISH - 7 assessed: 06/22/24 Feeling nervous, anxious, or on edge: 1 = Several days Not being able to stop or control worryin = Several days (patient states i dont know ) Worrying too much about different things: 0 = Not at all Trouble relaxin = Not at all Being so restless that it is hard to sit still: 0 = Not at all Becoming easily annoyed or irritable: 0 = Not at all Feeling afraid as if something awful might happen: 0 = Not at all Total SATHISH-7 score (0-4 normal; 5-9 mild; 10-14 moderate; 15-21 severe): 2 Source: Developed by Drs. James Malik, Gregoria San, George Baeza and colleagues, with an educational mario from [employer]. SATHISH-7 Assessment Billing SATHISH-7 Assessment Tool: SATHISH-7 Assessment 21502 Review of Systems Const Denies chills, Denies fatigue, Denies headache(s) and Denies weight loss Eyes Denies change in vision, Denies diplopia and Denies eye pain ENT Denies vertigo, Denies dizziness, Denies headache(s) and Denies nasal discharge Card Denies chest pain, Denies rapid heart rate and Denies dyspnea on exertion Resp Denies chest congestion, Denies cough, Denies pain with cough and Denies dyspnea on exertion GI Denies abdominal pain, Denies hematochezia and Denies change in bowel habits Musc Denies myalgias, Denies arthralgias and Denies joint swelling Skin/Breast Denies lesions and Denies unusual bruising Neuro Denies vertigo, Denies dizziness, Denies headache(s) and Denies focal weakness Endo Denies fatigue Physical exam (Primary Care) Vital Signs: Last Vital Signs Pulse 84 06/22/24 08:57 BP 138/90 H 06/22/24 08:57 Pulse Ox 96 06/22/24 08:57 Oxygen Delivery Method Room Air 06/22/24 08:57 BMI result Body Mass Index 37.0 Tobacco/Smoking Status: Tobacco use Status Tobacco use date assessed 06/22/24 06/22/24 09:02 Patient Tobacco Use Status Former Tobacco user 06/22/24 09:02 Tobacco use type 12/27/22 14:10 e-Cigarette/Vaping Use Never Used 06/22/24 09:02 PHQ-9: PHQ-9 Score PHQ-9: Total score 0 06/22/24 09:02 Depression Screening Interpretation: Negative Thrive Assessment: Date of Thrive Assessment Date Thrive assessed 06/22/24 06/22/24 09:02 Const General: cooperative, healthy appearing and no acute distress Orientation/consciousness: oriented to person, oriented to place and oriented to time HENMT Head: Yes normal to inspection, Yes normocephalic and Yes atraumatic Mouth: Normal oral and palatal mucosa present and tongue normal Throat: Yes posterior oropharynx normal and Yes uvula midline Eyes General: appearance normal, both eyes and all related structures Neck Neck: Yes normal visual inspection, Yes full ROM and Yes no lymphadenopathy Thyroid: Thyroid normal Carotids: normal carotid upstroke Chest Chest palpation & inspection: normal inspection of the chest Resp Effort & Inspection: normal respiratory effort and able to speak in complete sentences Auscultation: clear to auscultation bilaterally Cardio Jugular venous distension: no JVD Palpation: normal PMI Rate: regular rate Rhythm: regular rhythm Heart sounds: S1 normal heart sound present and S2 normal heart sound present GI Inspection: Yes normal to inspection Palpation (GI): Soft to palpation and No hepatosplenomegaly present Auscultation: normal bowel sounds General: Yes no CVA tenderness Back/Spine/Pelvis Back: no CVA tenderness Skin General skin exam: no rashes or lesions noted Neuro General: oriented to person, oriented to place and oriented to time Extrem General: Yes normal to inspection and Yes full ROM Coding Level of Care Code Est Pt Level 4 (35853) Diagnoses Preop exam for internal medicine Z01.818 Additional Codes SATHISH-7 Assessment Billing - SATHISH-7 Assessment Tool: SATHISH-7 Assessment 73832 ([id number]) PHQ-9 - 43372 - PHQ-9 Billing: Yes ([id number]) Assessment & Plan Assessment & Plan (1) Preop exam for internal medicine: Code(s): Z01.818 - Encounter for other preprocedural examination Category: Medical Plan: low risk for cardiovascular complications; cleared for surgery
== END 2024-06-22 09:09 | disposition home or self-care (01) ==
PROVIDERS: PCP Internal Medicine; Visit Provider Internal Medicine
DX: Z01.818 Encounter for other preprocedural examination (principal)

== ENCOUNTER → 2024-06-22 08:47 | Outpatient (BNVA) | payer BC, SELFPAY | PROVIDERS: PCP Internal Medicine; Visit Provider Internal Medicine | DX: Z01.818 Encounter for other preprocedural examination (principal); D36.13 Benign neoplasm of peripheral nerves and autonomic nervous system of lower limb, including hip | CPT/HCPCS: 96127 ==

== ENCOUNTER 2024-06-27 07:43 | Outpatient (REF) | payer BC, SELFPAY ==
[2024-06-27 07:51] LABS: MANUAL DIFF FLAG NO
[2024-06-27 08:31] LABS: Basophils Absolute Auto 0.1 X10*3/uL (0.0-0.2); Eosinophils Absolute Auto 0.4 X10*3/uL (0.0-0.4); Eosinophils Percent Auto 5.2 % (0-4); Hematocrit 42.5 % (37.0-47.0); Hemoglobin 13.8 g/dl (12.0-16.0); Imm Gran Abs Auto 0.02 X10*3/uL (0.00-0.03); Imm Gran Pct Auto 0.3 % (0.0-0.4); Lymphocytes Absolute Auto 2.3 X10*3/uL (1.2-4.9); Lymphocytes Percent Auto 32.7 % (20-40); Mean Corpuscular HGB Conc 32.5 g/dl (31.0-35.0); Mean Corpuscular Volume 86.2 fL (80.0-98.0); Mean Platelet Volume 10.9 fL (9.4-12.3); Monocytes Absolute Auto 0.7 X10*3/uL (0.1-1.2); Monocytes Percent Auto 9.5 % (2-11); Neutrophils Absolute Auto 3.6 x10*3/uL (2.0-8.3); Neutrophils Percent Auto 51.3 % (45-73); Platelet Count 276 X10*3/uL (160-400); Red Blood Count 4.93 X10*6/uL (4.20-5.50); Red Cell Distribution Width 13.4 % (11.0-16.0); White Blood Count 7.1 X10*3/uL (4.8-10.8)
[2024-06-27 08:37] LABS: Anion Gap 13 (12-20); Blood Urea Nitrogen 16 mg/dL (9-16); Calcium 9.7 mg/dL (8.4-10.2); Carbon Dioxide 25 mmol/L (22-29); Chloride 110 mmol/L (96-108); Estimated Glomerular Filt Rate > 60; Glucose Fasting 113 mg/dL (60-99); Sodium 144 mmol/L (135-145)
== END 2024-06-27 07:44 | disposition home or self-care (01) ==
LOC: HO.LAB 07:43
PROVIDERS: PCP Internal Medicine; Visit Provider Internal Medicine
DX: Z01.818 Encounter for other preprocedural examination (principal); Z13.0 Encounter for screening for diseases of the blood and blood-forming organs and certain disorders involving the immune mechanism
CPT/HCPCS: 36415; 80048; 85025

== ENCOUNTER → 2024-07-06 07:54 | Outpatient (REF) | payer BC, SELFPAY ==
--- NOTE | 2024-07-06 07:59 | ECG_ITS ---
Test Reason : pre op Blood Pressure : */* mmHG Vent. Rate : 60 BPM Atrial Rate : 60 BPM P-R Int : 144 ms QRS Dur : 82 ms QT Int : 408 ms P-R-T Axes : 50 29 28 degrees QTcB Int : 408 ms Normal sinus rhythm with sinus arrhythmia Normal ECG When compared with ECG of 21-Sep-2022 09:30, No significant change was found Referred By: Gianni Poe Electronically Signed By: Akira Jauregui
== END ==
LOC: HO.CARD 07:54
PROVIDERS: PCP Internal Medicine; Visit Provider Internal Medicine
DX: Z01.818 Encounter for other preprocedural examination (principal)
CPT/HCPCS: 93005

== ENCOUNTER → 2024-07-06 07:59 | Outpatient (BNV) | payer BC, SELFPAY | PROVIDERS: PCP Internal Medicine; Visit Provider Internal Medicine Cardiovascular Disease | DX: I49.9 Cardiac arrhythmia, unspecified (principal) | CPT/HCPCS: 93010 ==

== ENCOUNTER 2024-08-05 09:21 | Outpatient (AMB) | payer BC, SELFPAY ==
--- NOTE | 2024-08-05 09:26 | MHC.PC.OV ---
Vital Signs 08/05/24 09:28 Height 5 ft 7 in Weight 239 lb 4 oz BMI 37.5 BP 140/90 H Blood Pressure Location Lt brachial Position Sitting Pulse 89 Pulse Source Pulse Oximeter Temp 97.1 F Temp Source Skin Pulse Oximetry (%) 99 Oxygen Delivery Method Room Air Intake Visit Reasons: Blood Pressure Intake Note: Patient is here to follow up on Blood pressure. Renovator Machine Operator Required: No Car Mover: Not Required per policy Accompanied by: Self / Same As Patient Allergies peanut Allergy (Unknown, Verified 08/05/24 09:27) Unknown shrimp Allergy (Unknown, Verified 08/05/24 09:27) Unknown Medication List - Last Reconciled 08/05/24 by Gianni Poe MD loratadine-pseudoephedrine 10-240 mg ER (Claritin-D 24 Hour) 1 tab PO DAILY lorazepam 1 mg PO TID PRN multivitamin 1 tab PO DAILY Tobacco use date assessed: 08/05/24 Dental Screening Dental Screen Date: 08/05/24 Did you have a dental visit in the last 12 months?: No Did you have a dental problem in the last 6 months where you did not have access to dental care?: No Was dental information given to patient?: No HPI Blood Pressure HPI Details BP 150/92; was elevated 190 at pre op and surgery postponed [facility] Medical History Hyperlipidemia Fatty liver Carpal tunnel syndrome, bilateral Surgical History Hx of wisdom tooth extraction Hx of reduction mammoplasty Family History Father CVD (cardiovascular disease) S/P triple vessel bypass Mother Cancer Bladder cancer Sister Thyroid nodule Paternal Grandmother Stroke Social History Housing: House Alcohol intake: current Alcohol intake frequency: holidays/special occasions only Patient Tobacco Use Status: Former Tobacco user e-Cigarette/Vaping Use: Never Used Second Hand Smoke Exposure: No service: No Current occupational status: employed Cognitive needs: No Hearing needs: No Vision needs: Yes (glasses) Questionnaire PHQ-9 Over the last 2 weeks, how often have you been bothered by any of the following problems? 1. Little interest or pleasure in doing things: not at all 2. Feeling down, depressed, or hopeless: not at all 3. Trouble falling or staying asleep, or sleeping too much: not at all 4. Feeling tired or having little energy: not at all 5. Poor appetite or overeating: not at all 6. Feeling bad about yourself - or that you are a failure or have let yourself or your family down: not at all 7. Trouble concentrating on things, such as reading the newspaper or watching television: not at all 8. Moving or speaking so slowly that other people could have noticed. Or the opposite - being so fidgety or restless that you have been moving around a lot more than usual: not at all 9. Thoughts that you would be better off or of hurting yourself in some way: not at all Total score: 0 Depression Screening Interpretation: Negative Depression Screening Done: Yes Source: Developed by Drs. James Malik, Gregoria San, George Baeza and colleagues, with an educational mario from [employer]. Thrive Questionnaire Date Thrive assessed: 08/05/24 I am a: Patient What is your living situation today?: I have a steady place to live Within the past 12 months, did the food you bought not last and you didn't have the money to get more?: Never true Within the past 12 months, did you worry whether your food would run out before you got money to buy more?: Never true Do you have trouble paying for medicines?: No Do you have trouble getting transportation to medical appointments?: No Do you have trouble paying your heating and electricity bill?: No Do you have trouble taking care of your child, family member or friend?: No Do you have trouble with day-to-day activities such as bathing, preparing meals, shopping, managing finances, etc.?: No Are you currently unemployed and looking for a job?: No Are you interested in more education?: No Please select the resources that you would like help with: None Currently or been in a relationship where the following occur: No concerns reported THRIVE Score: 0 AUDIT C Alcohol Use Questionnaire (AUDIT-C) 1. How often do you have a drink containing alcohol?: Never Total Score: 0 SATHISH-7 AMB Questionnaire SATHISH-7 Date SATHISH - 7 assessed: 08/05/24 Feeling nervous, anxious, or on edge: 0 = Not at all Not being able to stop or control worryin = Not at all Worrying too much about different things: 0 = Not at all Trouble relaxin = Not at all Being so restless that it is hard to sit still: 0 = Not at all Becoming easily annoyed or irritable: 0 = Not at all Feeling afraid as if something awful might happen: 0 = Not at all Total SATHISH-7 score (0-4 normal; 5-9 mild; 10-14 moderate; 15-21 severe): 0 Source: Developed by Drs. James Malik, Gregoria San, George Baeza and colleagues, with an educational mario from [employer]. Review of Systems Const Denies chills, Denies headache(s) and Denies weight loss ENT Denies headache(s) Card Denies chest pain, Denies syncope, Denies irregular heart rhythm and Denies dyspnea Resp Denies chest congestion, Denies cough and Denies dyspnea GI Denies abdominal pain, Denies change in stool character, Denies nausea and Denies vomiting Musc Denies deformity and Denies joint swelling Neuro Denies syncope and Denies headache(s) Physical exam (Primary Care) Vital Signs: Last Vital Signs Temp 97.1 F 08/05/24 09:28 Pulse 89 08/05/24 09:28 BP 140/90 H 08/05/24 09:28 Pulse Ox 99 08/05/24 09:28 Oxygen Delivery Method Room Air 08/05/24 09:28 BMI result Body Mass Index 37.5 Tobacco/Smoking Status: Tobacco use Status Tobacco use date assessed 08/05/24 08/05/24 09:31 Patient Tobacco Use Status Former Tobacco user 08/05/24 09:31 Tobacco use type 12/27/22 14:10 e-Cigarette/Vaping Use Never Used 08/05/24 09:31 PHQ-9: PHQ-9 Score PHQ-9: Total score 0 08/05/24 09:31 Depression Screening Interpretation: Negative Thrive Assessment: Date of Thrive Assessment Date Thrive assessed 08/05/24 08/05/24 09:31 Currently or been in a relationship where the following occur: No concerns reported Const General: cooperative, comfortable, no acute distress and alert Neck Neck: Yes no lymphadenopathy Thyroid: Thyroid normal Resp Effort & Inspection: normal respiratory effort Auscultation: clear to auscultation bilaterally Percussion: percussion normal Cardio Jugular venous distension: no JVD Palpation: normal PMI Rate: regular rate Rhythm: regular rhythm Heart sounds: S1 normal heart sound present and S2 normal heart sound present GI Inspection: Yes normal to inspection Palpation (GI): No hepatosplenomegaly present Skin General skin exam: no rashes or lesions noted Extrem General: Yes no clubbing, cyanosis or edema Coding Level of Care Code Est Pt Level 3 (59417) Diagnoses Hypertension I10 Assessment & Plan Assessment & Plan (1) Hypertension: Code(s): I10 - Essential (primary) hypertension Category: Medical Plan: rx sent Medications: New atenolol 50 mg PO DAILY 30 tabs 1RF
[2024-08-05 09:28] VITALS: BP 140/90; PULSE 89; TEMP 36.2; O2SAT 99; BMI 37.5
--- OUTSIDE RECORDS SUMMARY | 2024-08-05 10:31 | XMS_ITS ---
Author Organization [facility] Address [address] [place] [phone] Care Team Providers Care Interpersonal Communications Professor Name Role Phone Gianni Poe MD Primary Care Provider James Morales [phone] ALLERGIES Allergen (clinical drug ingredient) Drug/Non Drug Allergy documented on EMR Reaction Allergy Type Onset Date Status Shellfish (FN) Shellfish-derived Products Unknown Drug Allergy Active peanut allergenic extract Peanut (Diagnostic) Unknown Drug Allergy Active REASON FOR VISIT Patient presents today for a colon screening MEDICATIONS Medication SIG (Take, Route, Fr equency, Duration) Notes Start Date End Date Status Multivitamin - 1 tablet Orally Once a day for 30 day(s) Active Sleep Aid Active SOCIAL HISTORY Tobacco Use: Social History Observation Description Date Details (start date - stop date) Former Smoker NA - NA Sex Assigned At : Social History Observation Description Sex Assigned At Unknown Tobacco Use/Smoking Question Answer Notes Patient is a former smoker How long has it been since you last smoked? > 10 years Alcohol Screen Question Answer Notes Did you have a drink containing alcohol in the p ast year? No Points 0 Interpretation Negative PROBLEMS Problem Type ICD Code Onset Dates Problem Status W/U Status Risk SNOMED Code Notes Problem Colon cancer screening (Z12.11) Active confirmed 179207020 Problem Preprocedural examination (Z01.818) Active confirmed 183165353098918 VITAL SIGNS BMI 33.83 kg/m2 04/25/2023 Blood pressure systolic 000 mm Hg 04/25/20 23 Blood pressure diastolic 00 mm Hg 023 Height 5 ft 7 in in 04/25/2023 Temperature 96.6 degrees Fahrenheit 04/25/20 23 Weight 216 lbs 04/25/2023 Encounters Encounter Location Date Provider Diagnosis [facility] [address] [place] [address] 04/25/2023 James Yang Colon cancer screeni ng Z12.11 and Preprocedural examination Z01.818 ASSESSMENTS Encounter Date Diagnosis Assessment Notes Treatment Notes Treatment Clinical Notes 04/25/2023 Colon cancer screening (ICD-10 - Z12.11) 04/25/2023 Preprocedural examination (ICD-10 - Z01.818) PLAN OF TREATMENT Future Test Test Name Order Date COLONOSCOPY 04/25/2023 Next Appt Details Follow Up: prn, Reason: Progress Notes * Examination Category Sub-Category Detail Notes General Examination GENERAL APPEARANCE: pleasant , well nourished, well developed, in no acute distress HEAD: EYES: sclera non-icteric EARS: NOSE: THROAT: NECK/THYROID: no cervical lymphade nopathy, neck supple HEART: S1, S2 normal CHEST: LUNGS: clear to auscultatio n bilaterally ABDOMEN: normal bowel sounds, no guarding or rigidity, no guarding or rigidity, no masses palpable, soft, nontender, nondistended NEUROLOGIC: alert and oriented SKIN: nonjaundiced, no spi woody angiomata EXTREMITIES: no edema PERIPHERAL PULSES: BACK: BREASTS: MUSCULOSKELETAL: MALE GENITOURINARY: LYMPH NODES: RECTAL EXAM: FEMALE GENITOURINARY: ORAL CAVITY: mucosa moist
--- OUTSIDE RECORDS SUMMARY | 2024-08-05 10:31 | XMS_ITS ---
Author Organization [facility] Address [address] [place] [address] Care Team Providers Care Carbon Coating Machine Operator Name Role Phone Lui RIVERA, Gianni Primary Care Provider Janett Lincoln [phone] Encounters Encounter Location Date Provider Diagnosis [address] [address] 08/04/2024 Janett Taylor Plan Of Treatment No Information Progress Notes * Amarilis VALLEJOnDOB: 3 (53 yo F)Acc No.[id number]:08/04/2024 PROGRESS NOTES Patient:?Josh VALLEJO Provider:?Janett Taylor DPM :1970???Age:53 Y???Sex:Female D ate:08/04/2024 Address:[address] [place], [place] [phone] Pcp:Gianni Poe MD Subjective: * Chief Complaints: * ??? * Medical History:? Objective: * Vitals:? Assessment: Plan: * Treatment: * Images: * The named appointment provid er may or may not be the originator of this progress note, and it is not deemed complete until electronically signed by the appointment provider. Sign off status: Pending * Provider:?Janett Taylor DPM Date:?04/2025 Generated for Lisha shipley/Garry/Miransmitting on:?08/05/2024 10:30 AM EST
--- OUTSIDE RECORDS SUMMARY | 2024-08-05 10:31 | XMS_ITS ---
Author Organization [facility] Address [address] [place] [address] Care Team Providers Care High School Business Teacher Name Role Phone Gianni Poe MD Primary Care Provider Janett Lincoln [phone] REASON FOR VISIT sx rebooking process Encounters Encounter Location Date Provider Diagnosis [address] [address] 07/24/2024 Janett Taylor Plan Of Treatment No Information Progress Notes * Wang VALLEJOOB: 3 (53 yo F)Acc No.[id number]:07/24/2024 Patient:?Josh VALLEJO :1970???Age:53 Y???Sex:Female Address:[address] [place] [address] [place], [address] * * Date:?
--- OUTSIDE RECORDS SUMMARY | 2024-08-05 10:31 | XMS_ITS | Patient Health Record ---
Author Organization [facility] Address [address] [place] [address] Care Team Providers Care Engine Hostler Name Role Phone Lui RIVERA, Gianni Primary Care Provider James Morales [phone] ALLERGIES Allergen (clinical drug ingredient) Drug/Non Drug Allergy documented on EMR Reaction Allergy Type Onset Date Status Shellfish (FN) Shellfish-derived Products Unknown Drug Allergy Active peanut allergenic extract Peanut (Diagnostic) Unknown Drug Allergy Active REASON FOR REFERRAL No Information MEDICATIONS Medication SIG (Take, Route, Fr equency, [...] Problem Colon cancer screening (Z12.11) Active confirmed 534992690 Problem Preprocedural examination (Z01.818) Active confirmed 808104116850604 Problem Diverticulosis of large intestine without perforation or abscess without bleeding (K57.30) Active confirmed Diverticul ar disease of colon (698496762) PLAN OF TREATMENT Future Test Test Name Order Date COLONOSCOPY 04/25/2023 Insurance Providers Payer Name Payer Address Payer Phone Subscriber Number Group Number Insured Name Patient Relationship to Insured Coverage Start Date Coverage End Date HMO [employer]UE [employer] PROF[employer]AL CLAIMS [address] [place] [address] [phone] [id number] IRIS VALLEJO Self - patient is the insured MEDICAL (GENERAL) HISTORY Medical History History ICD Code Denies MS,DM,CVA,Lung disease,renal dise ase Told of fatty liver on a CT scan-LFT's n ormal in 10/2022 Surgical History Surgery Date(Month/Year) Breast reduction 2014 [place] teeth
--- OUTSIDE RECORDS SUMMARY | 2024-08-05 10:31 | XMS_ITS ---
Author Organization [facility] Address [address] [place] [address] Care Team Providers Care Summer Law Associate Name Role Phone Lui RIVERA, Gianni Primary Care Provider James Morales Unavailable [phone] REASON FOR VISIT screening PROBLEMS Problem Type ICD Code Onset Dates Problem Status W/U Status Risk SNOMED Code Notes Problem Diverticulosis of large intestine without perforation or abscess without bleeding (K57.30) Active confirmed Diverticul ar disease of colon (346474441) Encounters Encounter Location Date Provider Diagnosis [facility] Outpatient [address] [place], [place] [phone] 08/02/2023 James Yang Encounter for scre ening colonoscopy Z12.11 ; Diverticulosis of large intestine without perforation or abscess without bleeding K57.30 and Other hemorrhoids K64.8 ASSESSMENTS Encounter Date Diagnosis Assessment Notes Treatment Notes Treatment Clinical Notes 08/02/2023 Encounter for screening colonoscopy (ICD-10 - Z12.11) 08/02/2023 Diverticulosis of large intestine without perforation or abscess without bleeding (ICD-10 - K57.30) 08/02/2023 Other hemorrhoids (ICD-10 - K64.8) PLAN OF TREATMENT No Information
--- OUTSIDE RECORDS SUMMARY | 2024-08-05 10:31 | XMS_ITS | Patient Health Record ---
Author Organization [facility] Address [address] [place] [address] Care Team Providers Care Recruiting Associate Name Role Phone Gianni Poe MD Primary Care Provider Joya Janett Vargas Unavailable [phone] Skylar Reyna Unavailable [phone] Allergies Allergen (clinical drug ingredient) Drug/Non Drug Allergy documented on EMR Reaction Allergy Type Onset Date Status Shellfish (FN) Shellfish-derived Products sick to stomach Drug Allergy Active Results Component Value Reference Range Notes X ray : Foot, left 3V Reviewed date:10/28/2023 07:34:37 PM Interpretation:See Examination above Performing Lab: Notes/Report: See Examination above Reason For Referral Diagnosis 1 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) Diagnosis 2 Lesion of plantar ne rve, left lower limb (G57.62) Diagnosis 3 Lesion of plantar ne rve, right lower limb (G57.61) Diagnosis 4 Plantar fasciitis of left foot (M72.2) Diagnosis 5 Bursitis of left zunilda t (M77.52) Diagnosis 6 Calcaneal spur, left foot (M77.32) Diagnosis 7 Pain in left foot (M 79.672) Diagnosis 8 Pain in right foot ( M79.671) Diagnosis 9 Pain in right ankle and joints of right foot (M25.571) Diagnosis 10 Bursitis (727.3) Diagnosis 11 Myositis (729.1) Referring Provider First Name Gianni Referring Provider Last Name Lui Referred Organization [facility] Referred Provider Skylar Reyna Referred Address [address] [facility],[place], [place],[address],[place] Referred Provider Specialty Podiatry Referral Priority Routine Diagnosis 1 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) Diagnosis 2 Lesion of plantar ne rve, left lower limb (G57.62) Diagnosis 3 Lesion of plantar ne rve, right lower limb (G57.61) Diagnosis 4 Pain in left foot (M 79.672) Diagnosis 5 Plantar fasciitis of left foot (M72.2) Diagnosis 6 Bursitis of left zunilda t (M77.52) Diagnosis 7 Calcaneal spur, left foot (M77.32) Diagnosis 8 Pain in right ankle and joints of right foot (M25.571) Diagnosis 9 Pain in right foot ( M79.671) Referring Provider First Name Gianni Referring Provider Last Name Lui Referred [facility] Referred Provider Janett Taylor Referred Address [address] [facility],[place], [place],[address],[place] Referred Provider Specialty Podiatry Referral Priority Routine Medications Medication SIG (Take, Route, Frequency, Duration) Notes Start Date End Date Status Multivitamin Active Crutches Use Daily for as needed 07/15/2024 Active ZyrTEC Allergy Activ e [place] 3 Active Diclofenac Sodium 50 MG 1 tablet as needed Orally Twice a day for 30 days Takes as needed 01/18/2023 Not-Taking Medrol jaya 4mg as directed orally as directed for 6 days 04/08/2023 Not-Taking Ibuprofen 800 MG 1 tablet with food or milk as needed Orally Three times a day as needed post op for 10 days 07/15/2024 Active Night Splint AFO - L1930 1 wear at rest for 30 days Active Crutch - as directed 06/25/2024 Active Neurontin 300 MG 1 capsule Orally Once a day at night post op as needed for 20 days 07/15/2024 Active Tylenol PM Extra Strength Active Feldene 20 MG 1 capsule with food Orally Once a day for 30 days 01/17/2023 Not-Taking Social History Tobacco Use/Smoking Question Answer Notes Additional Findings: Tobacco Non-User Current no n-smoker Alcohol Screen Question Answer Notes Did you have a drink contain ing alcohol in the past year? Yes How often did you have a dri nk containing alcohol in the past year? Monthly or less (1 point) Points 1 Interpretation Negative Tobacco use other than smoking: Question Answer Notes Are you an other tobacco user? 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 Problem [id number] Plantar fasciitis of left foot (M72.2) Active confirmed Problem Interstitial myositis (46929681) 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) Active confirmed Vital Signs Blood pressure diastolic 80 mm Hg 07/15/2024 Height 5ft7in in 07/15/2024 Blood pressure systolic 133 mm Hg 07/15/2024 Weight 233 lbs 07/15/2024 BMI 36.49 kg/m2 07/15/2024 Procedures Procedure Date Ordered Date Performed Result Body Sit e 42195, J0702- Neuroma/Injection 09/16/2023 N/A 73163, J0702- Neuroma/Injection 10/28/2023 N/A 01849, J0702- Neuroma/Injection 12/09/2023 N/A Encounters Encounter Location Date Provider Diagnosis [facility] [address] [address] 09/16/2023 Skylar Black Pain in right foot M79.671 ; Lesion of plantar nerve, left lower limb G57.62 ; Plantar fasciitis of left foot M72.2 ; Calcaneal spur, left foot M77.32 ; Pain in left foot M79.672 ; Interstitial myositis of left foot M60.172 ; Bursitis of left foot M77.52 and Pain in right ankle and joints of right foot M25.571 [facility] [address] [address] 10/28/2023 Skylar Black Lesion of plantar nerve, left lower limb G57.62 ; Contusion of left foot, initial encounter S90.32XA ; Plantar fasciitis of left foot M72.2 ; Pain in right foot M79.671 ; Calcaneal spur, left foot M77.32 ; Pain in left foot M79.672 ; Interstitial myositis of left foot M60.172 ; Bursitis of left foot M77.52 ; Pain in right ankle and joints of right foot M25.571 and Sprain of left foot, initial encounter S93.602A [address] [address] 12/09/2023 Skylar Black Plantar fasciitis of left foot M72.2 ; Pain in right foot M79.671 ; Calcaneal spur, left foot M77.32 ; Pain in left foot M79.672 ; Interstitial myositis of left foot M60.172 ; Bursitis of left foot M77.52 ; Pain in right ankle and joints of right foot M25.571 and Lesion of plantar nerve, right lower limb G57.[address] [address] 02/10/2024 Skylar Black Plantar fasciitis of left foot M72.2 ; Lesion of plantar nerve, right lower limb G57.61 ; Pain in right foot M79.671 ; Calcaneal spur, left foot M77.32 ; Pain in left foot M79.672 ; Interstitial myositis of left foot M60.172 ; Bursitis of left foot M77.52 and Pain in right ankle and joints of right foot M25.[address] [address] 02/18/2024 Skylar Black Pain in left foot M79.672 ; Lesion of plantar nerve, right lower limb G57.61 and Bursitis of intermetatarsal bursa of left foot M77.[address] [address] 03/30/2024 Janett Perica Pain in right foot M79.671 and Lesion of plantar nerve, right lower limb G57.[address] [address] 07/15/2024 Janett Perica Pain in right foot M79.671 and Lesion of plantar nerve, right lower limb G57.[address] [address] 07/24/2024 Janett Perica [facility] [address] [place] [address] 09/24/2023 Skylar Black [facility] [address] [address] 11/25/2023 Skylar Black [facility] [address] [address] 02/10/2024 Skylar Black [facility] [address] [place] [address] 02/18/2024 Skylar Black [facility] [address] [address] 03/30/2024 Janett Perica [facility] [address] [address] 05/07/2024 Janett Perica [facility] [address] [address] 06/25/2024 Janett Perica [facility] [address] [address] 07/15/2024 Janett Perica [facility] [address] [address] 07/22/2024 Janett Magallanesa Assessments Encounter Date Diagnosis (ICD Code) Assessment Notes Treatment Notes Treatment Clinical Notes Section Notes 09/16/2023 Pain in right foot (ICD-10 - M79.671) 09/16/2023 Lesion of plantar nerve, left lower limb (ICD-10 - G57.62) Patient Educated with: INJECTIONTHER APY.pdf (INJECTIONTHE RAPY.pdf) 10/28/2023 Contusion of left foot, initial encounter (ICD-10 - S90.32XA) Patient Educated with: RICE THERAPY.pdf (RICE THERAPY.pdf) 10/28/2023 Lesion of plantar nerve, left lower limb (ICD-10 - G57.62) Patient Educated with: INJECTIONTHER APY.pdf (INJECTIONTHE RAPY.pdf) 12/09/2023 Pain in right foot (ICD-10 - M79.671) 12/09/2023 Plantar fasciitis of left foot (ICD-10 - M72.2) 02/10/2024 Lesion of plantar nerve, right lower limb (ICD-10 - G57.61) Resistant to previous conservative treatment with and without contrast 02/10/2024 Plantar fasciitis of left foot (ICD-10 - M72.2) Response to treatment - Improvement 02/18/2024 Pain in left foot (ICD-10 - M79.672) 03/30/2024 Pain in right foot (ICD-10 - M79.671) 07/15/2024 Pain in right foot (ICD-10 - M79.671) 07/15/2024 Lesion of plantar nerve, right lower limb (ICD-10 - G57.61) 03/30/2024 Lesion of plantar nerve, right lower limb (ICD-10 - G57.61) Resistant to previous conservative treatment 02/18/2024 Lesion of plantar nerve, right lower limb (ICD-10 - G57.61) Resistant to previous conservative treatment 02/18/2024 Bursitis of intermetatarsal bursa of left foot (ICD-10 - M77.52) 02/10/2024 Pain in right foot (ICD-10 - M79.671) 12/09/2023 Calcaneal spur, left foot (ICD-10 - M77.32) 10/28/2023 Plantar fasciitis of left foot (ICD-10 - M72.2) 09/16/2023 Plantar fasciitis of left foot (ICD-10 - M72.2) 09/16/2023 Calcaneal spur, left foot (ICD-10 - M77.32) 10/28/2023 Pain in right foot (ICD-10 - M79.671) 12/09/2023 Pain in left foot (ICD-10 - M79.672) 02/10/2024 Calcaneal spur, left foot (ICD-10 - M77.32) 02/10/2024 Pain in left foot (ICD-10 - M79.672) 12/09/2023 Interstitial myositis of left foot (ICD-10 - M60.172) 10/28/2023 Calcaneal spur, left foot (ICD-10 - M77.32) 09/16/2023 Pain in left foot (ICD-10 - M79.672) 09/16/2023 Interstitial myositis of left foot (ICD-10 - M60.172) 10/28/2023 Pain in left foot (ICD-10 - M79.672) 12/09/2023 Bursitis of left foot (ICD-10 - M77.52) 02/10/2024 Interstitial myositis of left foot (ICD-10 - M60.172) 02/10/2024 Bursitis of left foot (ICD-10 - M77.52) 10/28/2023 Interstitial myositis of left foot (ICD-10 - M60.172) 12/09/2023 Pain in right ankle and joints of right foot (ICD-10 - M25.571) 09/16/2023 Bursitis of left foot (ICD-10 - M77.52) 09/16/2023 Pain in right ankle and joints of right foot (ICD-10 - M25.571) 12/09/2023 Lesion of plantar nerve, right lower limb (ICD-10 - G57.61) Patient Educated with: INJECTIONTHER APY.pdf (INJECTIONTHE RAPY.pdf) 10/28/2023 Bursitis of left foot (ICD-10 - M77.52) 02/10/2024 Pain in right ankle and joints of right foot (ICD-10 - M25.571) 10/28/2023 Pain in right ankle and joints of right foot (ICD-10 - M25.571) 10/28/2023 Sprain of left foot, initial encounter (ICD-10 - S93.602A) 12/09/2023 Other Plan Of Treatment Pending Test Test Name Order Date MRI : Foot, right 02/10/2024 X ray : Foot, right 3V 03/30/2024 37729, J0702- Neuroma/Injection 09/16/19 24 02564, J0702- Neuroma/Injection 10/28/19 24 03390, J0702- Neuroma/Injection 12/09/19 24 Insurance Providers Payer Name Payer Address Payer Phone Subscriber Number Group Number Insured Name Patient Relationship to Insured Coverage Start Date Coverage End Date [facility] [address] [place] [address] [id number] Josh Mejia Self - patient is the insured Medical (General) History Medical History History ICD Code chicken pox bone implants/screws back, hip, knee pain Broken bones covid-19 Warts Surgical History Surgery Date(Month/Year) wisdom teeth 2004 breast reduction 2014 Colonoscopy 08/17
--- OUTSIDE RECORDS SUMMARY | 2024-08-05 10:31 | XMS_ITS ---
Author Organization [facility] Address [address] [place] [address] Care Team Providers Care Major League Baseball Player Name Role Phone Lui RIVERA, Gianni Primary Care Provider Janett Lincoln [phone] Encounters Encounter Location Date Provider Diagnosis [address] [address] 07/28/2024 Janett Taylor Plan Of Treatment No Information Progress Notes * Amarilis VALLEJOnDOB: 3 (53 yo F)Acc No.[id number]:07/28/2024 PROGRESS NOTE Patient:Josh LOPEZ Provider:?Janett Taylor DPM :1970???Age:53 Y???Sex:Female D ate:07/28/2024 Address:[address] [place], [place] [address] Pcp:Gianni Poe MD Subjective: * Chief Complaints: * ??? * Medical History:? Objective: * Vitals:? Assessment: Plan: * Treatment: * Images: * The named appointment provid er may or may not be the originator of this progress note, and it is not deemed complete until electronically signed by the appointment provider. Sign off status: Pending * Provider:?Janett Taylor DPM Date:?09/2024 Generated for Lisha shipley/Garry/Miransmitting on:?08/05/2024 10:30 AM EST
--- OUTSIDE RECORDS SUMMARY | 2024-08-05 10:31 | XMS_ITS | Patient Health Record ---
Author Organization [facility] Address [address] [place] [address] Care Team Providers Care Risk Control Officer Name Role Phone Geetha Willoughby Unavailable [phone] Reason For Referral No Information Medications Medication SIG (Take, Route, Fr equency, Duration) Notes Start Date End Date Status Multivitamins 1 ORAL daily for -3 [facility] 03/17/2014 Active ZyrTEC 10MG 1 ORAL daily for -3 [facility] 12/09/2012 Active Immunizations Vaccine Route Administration Date Status Comme nts Tdap Intramuscular 12/09/2012 Pending Problems Problem Type SNOMED Code ICD Code Onset Dates Problem Status W/U Status Risk Notes Problem Polycystic ovaries (256.4) Active confirmed Diag Problem Obesity (991935760) Obesity, unspecified (278.00) Active confirmed Major Problem Excessive and frequent menstruation (151415699) Excessive or frequent menstruation (626.2) Active confirmed Diag Problem Irregular menstrual cycle (32629221) Irregular menstrual cycle (626.4) Active confirmed Diag Problem Gynecological examination normal (876880394301501) Routine gynecological examination (V72.31) Active confirmed Diag Plan Of Treatment Pending Test Test Name Order Date MAMMOGRAM, SCREENING 08/30/2014 Insurance Providers Payer Name Payer Address Payer Phone Subscriber Number Group Number Insured Name Patient Relationship to Insured Coverage Start Date Coverage End Date [employer] [address] [place] [address] [id number] Self - patient is the insured
== END 2024-08-05 09:47 | disposition home or self-care (01) ==
PROVIDERS: PCP Internal Medicine; Visit Provider Internal Medicine
DX: I10 Essential (primary) hypertension (principal)

== ENCOUNTER → 2024-08-05 09:21 | Outpatient (BNVA) | payer BC, SELFPAY | PROVIDERS: PCP Internal Medicine; Visit Provider Internal Medicine ==

== ENCOUNTER 2024-08-19 10:19 | Outpatient (AMB) | payer BC, SELFPAY ==
[2024-08-19 10:21] VITALS: BP 132/78; PULSE 78; O2SAT 98; BMI 37.2
--- NOTE | 2024-08-19 10:21 | MHC.PC.OV ---
Vital Signs 08/19/24 10:21 Height 5 ft 7 in Weight 237 lb 8 oz BMI 37.2 BP 132/78 Blood Pressure Location Lt brachial Position Sitting Pulse 78 Pulse Source Pulse Oximeter Pulse Oximetry (%) 98 Oxygen Delivery Method Room Air Intake Visit Reasons: 2 week f/u Senior Oracle Adf Developer Required: No Accompanied by: Self / Same As Patient Allergies peanut Allergy (Unknown, Verified 08/19/24 10:21) Unknown shrimp Allergy (Unknown, Verified 08/19/24 10:21) Unknown Medication List - Last Reconciled 08/19/24 by Gianni Poe MD atenolol 50 mg PO DAILY loratadine-pseudoephedrine 10-240 mg ER (Claritin-D 24 Hour) 1 tab PO DAILY lorazepam 1 mg PO TID PRN multivitamin 1 tab PO DAILY Tobacco use date assessed: 08/19/24 Dental Screening Dental Screen Date: 08/19/24 HPI 2 week f/u HPI Details HTN; controlled on rx; still has some anxiety; surgery was postponed due to BP but in good control now and can proceed [facility] Medical History Hyperlipidemia Fatty liver Carpal tunnel syndrome, bilateral Surgical History Hx of wisdom tooth extraction Hx of reduction mammoplasty Family History Father CVD (cardiovascular disease) S/P triple vessel bypass Mother Cancer Bladder cancer Sister Thyroid nodule Paternal Grandmother Stroke Social History Housing: House Alcohol intake: current Alcohol intake frequency: holidays/special occasions only Patient Tobacco Use Status: Former Tobacco user e-Cigarette/Vaping Use: Never Used Second Hand Smoke Exposure: No service: No Current occupational status: employed Cognitive needs: No Hearing needs: No Vision needs: Yes (glasses) Questionnaire PHQ-9 Over the last 2 weeks, how often have you been bothered by any of the following problems? 1. Little interest or pleasure in doing things: not at all 2. Feeling down, depressed, or hopeless: not at all 3. Trouble falling or staying asleep, or sleeping too much: not at all 4. Feeling tired or having little energy: not at all 5. Poor appetite or overeating: not at all 6. Feeling bad about yourself - or that you are a failure or have let yourself or your family down: not at all 7. Trouble concentrating on things, such as reading the newspaper or watching television: not at all 8. Moving or speaking so slowly that other people could have noticed. Or the opposite - being so fidgety or restless that you have been moving around a lot more than usual: not at all 9. Thoughts that you would be better off or of hurting yourself in some way: not at all Total score: 0 Depression Screening Interpretation: Negative Depression Screening Done: Yes Source: Developed by Drs. James Malik, Gregoria San, George Baeza and colleagues, with an educational mario from [employer]. Thrive Questionnaire Date Thrive assessed: 08/19/24 I am a: Patient What is your living situation today?: I have a steady place to live Within the past 12 months, did the food you bought not last and you didn't have the money to get more?: Never true Within the past 12 months, did you worry whether your food would run out before you got money to buy more?: Never true Do you have trouble paying for medicines?: No Do you have trouble getting transportation to medical appointments?: No Do you have trouble paying your heating and electricity bill?: No Do you have trouble taking care of your child, family member or friend?: No Do you have trouble with day-to-day activities such as bathing, preparing meals, shopping, managing finances, etc.?: No Are you currently unemployed and looking for a job?: No Are you interested in more education?: No Please select the resources that you would like help with: None Currently or been in a relationship where the following occur: No concerns reported THRIVE Score: 0 AUDIT C Alcohol Use Questionnaire (AUDIT-C) 1. How often do you have a drink containing alcohol?: Monthly or less 2. How many drinks containing alcohol do you have on a typical day when you are drinking?: 1 or 2 3. How often do you have six or more drinks on one occasion?: Never Total Score: 1 SATHISH-7 AMB Questionnaire SATHISH-7 Date SATHISH - 7 assessed: 08/19/24 Feeling nervous, anxious, or on edge: 0 = Not at all Not being able to stop or control worryin = Not at all Worrying too much about different things: 0 = Not at all Trouble relaxin = Not at all Being so restless that it is hard to sit still: 0 = Not at all Becoming easily annoyed or irritable: 0 = Not at all Feeling afraid as if something awful might happen: 0 = Not at all Total SATHISH-7 score (0-4 normal; 5-9 mild; 10-14 moderate; 15-21 severe): 0 Source: Developed by Drs. James Malik, Gregoria San, George Baeza and colleagues, with an educational mario from [employer]. Review of Systems Const Denies chills, Denies headache(s) and Denies weight loss ENT Denies headache(s) Card Denies chest pain, Denies syncope, Denies irregular heart rhythm and Denies dyspnea Resp Denies chest congestion, Denies cough and Denies dyspnea GI Denies abdominal pain, Denies change in stool character, Denies nausea and Denies vomiting Musc Denies deformity and Denies joint swelling Neuro Denies syncope and Denies headache(s) Physical exam (Primary Care) Vital Signs: Last Vital Signs Pulse 78 08/19/24 10:21 BP 132/78 08/19/24 10:21 Pulse Ox 98 08/19/24 10:21 Oxygen Delivery Method Room Air 08/19/24 10:21 BMI result Body Mass Index 37.2 Tobacco/Smoking Status: Tobacco use Status Tobacco use date assessed 08/19/24 08/19/24 10:27 Patient Tobacco Use Status Former Tobacco user 08/19/24 10:27 Tobacco use type 12/27/22 14:10 e-Cigarette/Vaping Use Never Used 08/19/24 10:27 PHQ-9: PHQ-9 Score PHQ-9: Total score 0 08/19/24 10:27 Depression Screening Interpretation: Negative Thrive Assessment: Date of Thrive Assessment Date Thrive assessed 08/19/24 08/19/24 10:27 Currently or been in a relationship where the following occur: No concerns reported Const General: cooperative, comfortable, no acute distress and alert Neck Neck: Yes no lymphadenopathy Thyroid: Thyroid normal Resp Effort & Inspection: normal respiratory effort Auscultation: clear to auscultation bilaterally Percussion: percussion normal Cardio Jugular venous distension: no JVD Palpation: normal PMI Rate: regular rate Rhythm: regular rhythm Heart sounds: S1 normal heart sound present and S2 normal heart sound present GI Inspection: Yes normal to inspection Palpation (GI): No hepatosplenomegaly present Skin General skin exam: no rashes or lesions noted Extrem General: Yes no clubbing, cyanosis or edema Coding Level of Care Code Est Pt Level 3 (97711) Diagnoses Hypertension I10 Assessment & Plan Assessment & Plan (1) Hypertension: Code(s): I10 - Essential (primary) hypertension Category: Medical Plan: stable; prceed with surgery; cleared Medications: New citalopram 20 mg PO DAILY 30 tabs 0RF
--- OUTSIDE RECORDS SUMMARY | 2024-08-19 12:35 | XMS_ITS ---
Author Organization [facility] Address [address] [place] [address] Care Team Providers Care Carpenter Mate Name Role Phone Lui RIVERA, Gianni Primary Care Provider Janett Lincoln [phone] Encounters Encounter Location Date Provider Diagnosis [address] [address] 08/18/2024 Janett Taylor Plan Of Treatment No Information Progress Notes * Amarilis VALLEJOnDOB: 3 (53 yo F)Acc No.[id number]:08/18/2024 PROGRESS NOTES Patient:?Josh VALLEJO Provider:?Janett Taylor DPM :1970???Age:53 Y???Sex:Female D ate:08/18/2024 Address:[address] [place], [place] [address] Pcp:Gianni Poe MD Subjective: * Chief Complaints: * ??? * Medical History:? Objective: * Vitals:? Assessment: Plan: * Treatment: * Images: * The named appointment provid er may or may not be the originator of this progress note, and it is not deemed complete until electronically signed by the appointment provider. Sign off status: Pending * Provider:?Janett Taylor DPM Date:? Generated for Lisha shipley/Garry/eTransmitting on:?08/19/2024 12:35 PM EST
--- OUTSIDE RECORDS SUMMARY | 2024-08-19 12:35 | XMS_ITS ---
Author Organization [facility] Address [address] [place] [address] Care Team Providers Care Journal Box Inspector Name Role Phone Lui RIVERA, Gianni Primary Care Provider James Morales Unavailable [phone] REASON FOR VISIT screening PROBLEMS Problem Type ICD Code Onset Dates Problem Status W/U Status Risk SNOMED Code Notes Problem Diverticulosis of large intestine without perforation or abscess without bleeding (K57.30) Active confirmed Diverticul ar disease of colon (678611748) Encounters Encounter Location Date Provider Diagnosis [facility] [address], [place] [id number] 08/02/2023 James Yang Encounter for scre ening [...]
--- OUTSIDE RECORDS SUMMARY | 2024-08-19 12:36 | XMS_ITS ---
Author Organization [facility] Address [address] [place] [address] Care Team Providers Care Welder Apprentice Gas Name Role Phone Lui RIVERA, Gianni Primary Care Provider Janett Lincoln [phone] Encounters Encounter Location Date Provider Diagnosis [address] [address] 08/04/2024 Janett Taylor Plan Of Treatment No Information Progress Notes * Amarilis VALLEJOnDOB: 3 (53 yo F)Acc No.[id number]:08/04/2024 PROGRESS NOTES Patient:?Josh VALLEJO Provider:?Janett Taylor DPM :1970???Age:53 Y???Sex:Female D ate:08/04/2024 Address:[address] [place], [place] [address] Pcp:Gianni Poe MD Subjective: * Chief Complaints: * ??? * Medical History:? Objective: * Vitals:? Assessment: Plan: * Treatment: * Images: * The named appointment provid er may or may not be the originator of this progress note, and it is not deemed complete until electronically signed by the appointment provider. Sign off status: Pending * Provider:?Janett Taylor DPM Date:?04/2025 Generated for Lisha shipley/Garry/eTransmitting on:?08/19/2024 12:35 PM EST
--- OUTSIDE RECORDS SUMMARY | 2024-08-19 12:36 | XMS_ITS ---
Author Organization [facility] Address [address] [place] [address] Care Team Providers Care Ruby On Rails Engineer Name Role Phone Lui RIVERA, Gianni Primary Care Provider Janett Lincoln [phone] Encounters Encounter Location Date Provider Diagnosis [address] [address] 07/28/2024 Janett Taylor Plan Of Treatment No Information Progress Notes * Amarilis VALLEJOnDOB: 3 (53 yo F)Acc No.[id number]:07/28/2024 PROGRESS NOTE Patient:Josh LOPEZ Provider:?Janett Taylor DPM :1970???Age:53 Y???Sex:Female D ate:07/28/2024 Address:[address] [place], [place] [address] Pcp:Gianni Poe MD Subjective: * Chief Complaints: * ??? * Medical History:? Objective: * Vitals:? Assessment: Plan: * Treatment: * Images: * The named appointment provid er may or may not be the originator of this progress note, and it is not deemed complete until electronically signed by the appointment provider. Sign off status: Pending * Provider:?Janett Taylor DPM Date:?09/2024 Generated for Lisha shipley/Garry/eTransmitting on:?08/19/2024 12:35 PM EST
--- OUTSIDE RECORDS SUMMARY | 2024-08-19 12:36 | XMS_ITS | Patient Health Record ---
Author Organization [facility] Address [address] [place] [address] Care Team Providers Care Blade Groover Name Role Phone Lui RIVERA, Gianni Primary Care Provider James Morales [phone] ALLERGIES Allergen (clinical drug ingredient) Drug/Non Drug [...] Problem Colon cancer screening (Z12.11) Active confirmed 494217564 Problem Diverticulosis of large intestine without perforation or abscess without bleeding (K57.30) Active confirmed Diverticul ar disease of colon (889267210) Problem Preprocedural examination (Z01.818) Active confirmed [id number] PLAN OF TREATMENT Future Test Test Name Order Date COLONOSCOPY 04/25/2023 Insurance Providers Payer Name Payer Address Payer Phone Subscriber Number Group Number Insured Name Patient Relationship to Insured Coverage Start Date Coverage End Date HMO BLUE BCBS PROFESSIONAL CLAIMS [address] [place] [address] [phone] [id number] IRIS VALLEJO Self - patient is the insured MEDICAL (GENERAL) HISTORY Medical History History ICD Code Denies SD,DM,CVA,Lung disease,renal dise ase Told of fatty liver on a CT scan-LFT's n ormal in 10/2022 Surgical History Surgery Date(Month/Year) Breast reduction 2014 [place] teeth
--- OUTSIDE RECORDS SUMMARY | 2024-08-19 12:36 | XMS_ITS | Patient Health Record ---
Author Organization [facility] Address [address] [facility] [address] [place] [address] Care Team Providers Care Parts Counter Sales Person Name Role Phone Geetha Willoughby Unavailable [phone] Reason For Referral No Information Medications Medication SIG (Take, Route, Fr equency, Duration) Notes Start Date End Date Status Multivitamins 1 [place] daily for -3 [facility] [place] 03/17/2014 Active ZyrTEC 10MG 1 ORAL daily for -3 [facility] [place] 12/09/2012 Active Immunizations Vaccine Route Administration Date Status Comme nts Tdap Intramuscular 12/09/2012 Pending Problems Problem Type SNOMED Code ICD Code Onset Dates Problem Status W/U Status Risk Notes Problem Polycystic ovaries (256.4) Active confirmed Diag Problem Obesity (745524103) Obesity, unspecified (278.00) Active confirmed Major Problem Excessive and frequent menstruation (107810555) Excessive or frequent menstruation (626.2) Active confirmed Diag Problem Irregular menstrual cycle (93841877) Irregular menstrual cycle (626.4) Active confirmed Diag Problem Gynecological examination normal (202220954643277) Routine gynecological examination (V72.31) Active confirmed Diag Plan Of Treatment Pending Test Test Name Order Date MAMMOGRAM, SCREENING 08/30/2014 Insurance Providers Payer Name Payer Address Payer Phone Subscriber Number Group Number Insured Name Patient Relationship to Insured Coverage Start Date Coverage End Date [employer] [place] [address] [place] [address] [phone] [id number] Self - patient is the insured
--- OUTSIDE RECORDS SUMMARY | 2024-08-19 12:36 | XMS_ITS | Patient Health Record ---
[facility] Address [address] [place] [address] Care Team Providers Care Financial Economist Name Role Phone Gianni Poe MD Primary Care Provider Joya Janett Vargas Unavailable [phone] Skylar Reyna Unavailable [phone] Allergies Allergen (clinical drug ingredient) Drug/Non Drug [...] Referring Provider Last Name Lui Referred Organization [facility] Referred Provider Skylar Reyna Referred Address [address] [facility],[place], [place],[address],[place] Referred Provider Specialty Podiatry Referral Priority Routine [...] Gianni Referring Provider Last Name Lui Referred [facility] Referred Provider Janett Taylor Referred Address [address] [facility],[place],[address],[place] Referred Provider Specialty Podiatry Referral Priority Routine Medications Medication SIG (Take, Route, Frequency, Duration) Notes Start Date End Date Status Multivitamin Active Crutches Use Daily for as needed 07/15/2024 Active ZyrTEC Allergy Activ e [place] 3 Active Diclofenac Sodium 50 MG 1 [...] Status Risk Notes Problem Plantar nerve lesion (845246503) Lesion of plantar nerve, 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 Resistant to previous conservative treatment Problem Plantar nerve lesion (581549773) Lesion of plantar nerve, left lower limb (G57.62) Active confirmed Problem [id number] Plantar fasciitis of left foot (M72.2) Active confirmed Problem Interstitial myositis (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) 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) Active confirmed Vital Signs Blood pressure diastolic 80 mm Hg 07/15/2024 Height 5ft7in in 07/15/2024 Blood pressure systolic 133 mm Hg 07/15/2024 Weight 233 lbs 07/15/2024 BMI 36.49 kg/m2 07/15/2024 Procedures Procedure Date Ordered Date Performed Result Body Sit e 62290, J0702- Neuroma/Injection 09/16/2023 N/A 91382, J0702- Neuroma/Injection 10/28/2023 N/A 92546, J0702- Neuroma/Injection 12/09/2023 N/A Encounters Encounter Location Date [facility] [address] [address] 09/16/2023 Skylar Black Pain in right foot M79.671 ; Lesion of plantar nerve, left lower limb G57.62 ; Plantar fasciitis of left foot M72.2 ; Calcaneal spur, left foot M77.32 ; Pain in left foot M79.672 ; Interstitial myositis of left foot M60.172 ; Bursitis of left foot M77.52 and Pain in right ankle and joints of right foot M25.571 [facility] [address] [address] 10/28/2023 Skylar Black Lesion of plantar nerve, [...] Sprain of left foot, initial encounter S93.602A [address] [address] 12/09/2023 Skylar Black Plantar fasciitis of left foot M72.2 ; Pain in right foot M79.671 ; Calcaneal spur, left foot M77.32 ; Pain in left foot M79.672 ; Interstitial myositis of left foot M60.172 ; Bursitis of left foot M77.52 ; Pain in right ankle and joints of right foot M25.571 and Lesion of plantar nerve, right lower limb G57.[address] [address] 02/10/2024 Skylar Black Plantar fasciitis of left foot M72.2 ; Lesion of plantar nerve, right lower limb G57.61 ; Pain in right foot M79.671 ; Calcaneal spur, left foot M77.32 ; Pain in left foot M79.672 ; Interstitial myositis of left foot M60.172 ; Bursitis of left foot M77.52 and Pain in right ankle and joints of right foot M25.[address] [address] 02/18/2024 Skylar Black Pain in left foot M79.672 ; Lesion of plantar nerve, right lower limb G57.61 and Bursitis of intermetatarsal bursa of left foot M77.[address] [address] 03/30/2024 Janett Perica Pain in right foot M79.671 and Lesion of plantar nerve, right lower limb G57.[address] [address] 07/15/2024 Janett Perica Pain in right foot M79.671 and Lesion of plantar nerve, right lower limb G57.[address] [address] 07/24/2024 Janett Perica [facility] [place] [address] [place] [address] 09/24/2023 Skylar Black [facility] [address] [address] 11/25/2023 Skylar Black [facility] [address] [address] 02/10/2024 Skylar Black [facility] [address] [place] [address] 02/18/2024 Skylar Black [facility] [address] [address] 03/30/2024 Janett Perica [facility] [address] [address] 05/07/2024 Janett Perica [facility] [address] [address] 06/25/2024 Janett Perica [facility] [address] [address] 07/15/2024 Janett Perica [facility] [address] [address] 07/22/2024 Janett Magallanesa Assessments Encounter Date Diagnosis [...] X ray : Foot, right 3V 03/30/2024 48728, J0702- Neuroma/Injection 09/16/19 24 19168, J0702- Neuroma/Injection 10/28/19 24 42747, J0702- Neuroma/Injection 12/09/19 24 Insurance Providers Payer Name Payer Address Payer Phone Subscriber Number Group Number Insured Name Patient Relationship to Insured Coverage Start Date Coverage End Date [facility] [address] [place] [address] [id number] Josh Mejia Self - patient is the insured Medical (General) History Medical History History ICD Code chicken pox bone implants/screws back, hip, knee pain Broken bones covid-19 Warts Surgical History Surgery Date(Month/Year) wisdom teeth 2004 breast reduction 2014 Colonoscopy 08/17
--- OUTSIDE RECORDS SUMMARY | 2024-08-19 12:36 | XMS_ITS ---
Author Organization [facility] Address [address] [place] [address] Care Team Providers Care Director It Project Name Role Phone Gianni Poe MD Primary Care Provider James Morales [phone] ALLERGIES Allergen (clinical drug ingredient) Drug/Non Drug [...] Problem Colon cancer screening (Z12.11) Active confirmed 003611242 Problem Preprocedural examination (Z01.818) Active confirmed [id number] VITAL SIGNS Temperature 96.6 degrees Fahrenheit 04/25/20 23 Blood pressure systolic 000 mm Hg 04/25/20 23 Blood pressure diastolic 00 mm Hg 023 Height 5 ft 7 in in 04/25/2023 Weight 216 lbs 04/25/2023 BMI 33.83 kg/m2 04/25/2023 Encounters Encounter Location Date Provider Diagnosis [facility] [address] [place] [address] 04/25/2023 James Yang Colon cancer screeni ng [...]
== END 2024-08-19 10:44 | disposition home or self-care (01) ==
PROVIDERS: PCP Internal Medicine; Visit Provider Internal Medicine
DX: I10 Essential (primary) hypertension (principal)

== ENCOUNTER 2024-09-16 08:22 | Outpatient (AMB) | payer BC, SELFPAY ==
--- NOTE | 2024-09-16 08:28 | MHC.PC.OV ---
Vital Signs 09/16/24 08:30 Height 5 ft 7 in Weight 240 lb 2 oz BMI 37.6 BP 120/70 Blood Pressure Location Lt brachial Position Sitting Pulse 48 L Pulse Source Pulse Oximeter Temp 96.9 F Temp Source Temporal Artery Scan Pulse Oximetry (%) 99 Oxygen Delivery Method Room Air Intake Visit Reasons: Transfer from [facility] 1 month f/u Intake Note: Patient is here today for RAÚL from Dr Poe. Collections And Archives Director Required: No Meat Seafood Associate: Not Required per policy Accompanied by: Self / Same As Patient Allergies peanut Allergy (Unknown, Verified 09/16/24 08:41) Unknown shrimp Allergy (Unknown, Verified 09/16/24 08:41) Unknown Medication List - Last Reconciled 09/16/24 by Bethanie Wong PA-C atenolol 50 mg PO DAILY buspirone 5 mg PO BID citalopram 20 mg PO DAILY loratadine-pseudoephedrine 10-240 mg ER (Claritin-D 24 Hour) 1 tab PO DAILY lorazepam 1 mg PO TID PRN multivitamin 1 tab PO DAILY Tobacco use date assessed: 09/16/24 Dental Screening Dental Screen Date: 08/19/24 HPI Transfer from [facility] 1 month f/u HPI Details 53-year-old female with past medical history of hypertension, anxiety, hyperlipidemia and hepatic steatosis last seen 07/[address] Poe coming in for transfer of care.? Patient recently underwent foot neuroma surgery. Presenting with hypertension and anxiety. She is currently on atenolol 25 mg, a reduction from 50 mg due to prior low heart rate. This medication was initially prescribed, and while effective for hypertension, it coincided with new-onset eye twitching and bothersome twitching following the onset period. Previously on lorazepam for anxiety, the patient switched to BuSpar which has improved her anxiety symptoms. Menopausal symptoms, primarily hot flashes, contribute to her sleep disturbance. Insomnia, enhanced by a new puppy, disrupts sleep further. She acknowledges the challenge of weight management, citing limited activity post foot neuroma and previous success with Nutrisystem and regular walking for weight loss. [facility] Medical History Hyperlipidemia Fatty liver Carpal tunnel syndrome, bilateral Surgical History Hx of wisdom tooth extraction Hx of reduction mammoplasty Family History (Updated 09/16/24 @ 08:29 by INDERJIT Bello) Father CVD (cardiovascular disease) S/P triple vessel bypass Mother Cancer Bladder cancer Sister Thyroid nodule Paternal Grandmother Stroke Social History Housing: House Alcohol intake: current Alcohol intake frequency: holidays/special occasions only Patient Tobacco Use Status: Former Tobacco user e-Cigarette/Vaping Use: Never Used Second Hand Smoke Exposure: Yes service: No Current occupational status: employed Cognitive needs: No Hearing needs: No Vision needs: Yes (glasses) Questionnaire Thrive Questionnaire Date Thrive assessed: 08/19/24 SATHISH-7 AMB Questionnaire SATHISH-7 Date SATHISH - 7 assessed: 08/19/24 Source: Developed by Drs. James Malik, Gregoria San, George Baeza and colleagues, with an educational mario from [employer]. Review of Systems Const Denies body aches, Denies chills, Denies fever(s), Denies headache(s) and Denies poor appetite Eyes Reports no additional complaints ENT Denies dysphagia, Denies dizziness, Denies headache(s) and Denies odynophagia Card Denies chest pain, Denies syncope, Denies edema, Denies irregular heart rhythm, Denies lightheadedness and Denies dyspnea Resp Denies cough and Denies dyspnea GI Denies abdominal pain, Denies constipation, Denies dysphagia, Denies diarrhea, Denies nausea, Denies odynophagia and Denies vomiting Reports no additional complaints Musc Reports no additional complaints and Denies abnormal gait Skin/Breast Reports system reviewed and no additional complaints, except as documented Neuro Denies abnormal gait, Denies dizziness, Denies syncope and Denies headache(s) Psych Reports no additional complaints Physical exam (Primary Care) Vital Signs: Last Vital Signs Temp 96.9 F 09/16/24 08:30 Pulse 48 L 09/16/24 08:30 BP 120/70 09/16/24 08:30 Pulse Ox 99 09/16/24 08:30 Oxygen Delivery Method Room Air 09/16/24 08:30 BMI result Body Mass Index 37.6 Tobacco/Smoking Status: Tobacco use Status Tobacco use date assessed 09/16/24 09/16/24 08:35 Patient Tobacco Use Status Former Tobacco user 09/16/24 08:35 Tobacco use type 12/27/22 14:10 e-Cigarette/Vaping Use Never Used 09/16/24 08:35 Thrive Assessment: Date of Thrive Assessment Date Thrive assessed 08/19/24 09/16/24 08:35 Const General: cooperative, healthy appearing, comfortable and no acute distress Orientation/consciousness: patient oriented x3 HENMT Head: Yes normocephalic Ears: hearing grossly normal bilaterally General nose exam: Normal external nose present Eyes Other: No sagging or weakness of eyelids observed General: appearance normal, both eyes and all related structures Eyelids: Yes eyelids normal and No lid lag Conjunctivae: conjunctivae normal EOM: EOMs intact bilaterally Neck Neck: Yes full ROM and Yes no lymphadenopathy Resp Effort & Inspection: normal respiratory effort Auscultation: clear to auscultation bilaterally, no crackles, no rales, no rhonchi and no wheezes Cardio Rate: regular rate Rhythm: regular rhythm Skin General skin exam: no rashes or lesions noted Neuro General: patient oriented x3 Gait exam (Neuro): Normal gait present Extrem General: Yes normal to inspection, Yes full ROM and No edema Psych Affect: normal affect Attitude: cooperative Insight: Good insight present (Psych) Judgement: Good judgement present (Psych) Coding Level of Care Code Est Pt Level 4 (16788) Diagnoses Hypertension I10 Hyperlipidemia E78.5 Hepatic steatosis K76.0 Obesity E66.9 Anxiety F41.9 Insomnia G47.00 Assessment & Plan Assessment & Plan (1) Hypertension: Code(s): I10 - Essential (primary) hypertension Category: Medical Plan: Continue on current blood pressure medication. Avoid salt intake and encourage healthy diet and regular exercise. Plan to discontinue atenolol due to low heart rate and bothersome eye twitching which began shortly after initiation of this medication. Plan to start on lisinopril 5 mg and follow up in 1 month. I discussed with the patient taking blood pressure at home 3-4 times per week. (2) Hyperlipidemia: Code(s): E78.5 - Hyperlipidemia, unspecified Category: Medical Plan: Avoid foods that are high in cholesterol such as red meat, fried foods, eggs and baked goods. Triglyceride goal of less than 150 and LDL goal of less than 100. (3) Hepatic steatosis: Code(s): K76.0 - Fatty (change of) liver, not elsewhere classified Category: Medical Plan: Healthy diet and regular exercise is encouraged. (4) Obesity: Code(s): E66.9 - Obesity, unspecified Category: Medical Plan: Healthy diet and regular exercise is encouraged. Referral placed to dietitian and delphi programmer today. We did discuss possibility of GLP 1 injections however patient would like to hold off at this time and declines weight management referral as well. (5) Anxiety: Code(s): F41.9 - Anxiety disorder, unspecified Category: Medical Plan: We'll continue BuSpar for anxiety and reassess its efficacy in eight weeks. Pre-surgery, lorazepam will help manage anxiety. Discussed the possibility of increasing the BuSpar to 10 mg in the morning and 5 mg at night as patient does experience insomnia if 2nd doses too close to bedtime. Plan to re-evaluate at next visit (6) Insomnia: Code(s): G47.00 - Insomnia, unspecified Category: Medical Plan: For insomnia plan to start on hydroxyzine 25 mg as needed at bedtime. Follow up at next visit Plan This note was constructed using voice recognition software. While every effort has been made to ensure accuracy and weld fitter, still areas may have been included sometimes these areas may affect the content or meeting of the given symptoms. Total time spent caring for the patient today was 30 minutes. This includes time spent before the visit reviewing the chart, time spent during the visit, and time spent after the visit and documentation. Patient was informed and verbally consented to the use of an ambient scribe for clinic note documentation during this visit. Orders: Referrals Immigration Services Officer Nutrition Referral E66.9 - Obesity, unspecified, K76.0 - Fatty (change of) liver, not elsewhere classified Medications: New lisinopril 5 mg PO DAILY 30 tabs 1RF hydroxyzine HCl 25 mg PO BEDTIME 30 tabs 1RF Refilled buspirone 5 mg PO BID 60 tabs 0RF Discontinued atenolol Discontinued Reason: Patient no longer taking 50 mg PO DAILY 30 tabs 1RF citalopram Discontinued Reason: Patient no longer taking 20 mg PO DAILY 30 tabs 0RF
[2024-09-16 08:30] VITALS: BP 120/70; PULSE 48; TEMP 36.1; O2SAT 99; BMI 37.6
== END 2024-09-16 09:24 | disposition home or self-care (01) ==
DX: I10 Essential (primary) hypertension (principal); E78.5 Hyperlipidemia, unspecified; Z68.37 Body mass index [BMI] 37.0-37.9, adult; E66.9 Obesity, unspecified; K76.0 Fatty (change of) liver, not elsewhere classified; F41.9 Anxiety disorder, unspecified; G47.00 Insomnia, unspecified

== ENCOUNTER → 2024-09-16 08:22 | Outpatient (BNVA) | payer BC, SELFPAY | PROVIDERS: PCP Internal Medicine ==

== ENCOUNTER 2024-10-19 15:48 | Outpatient (AMB) | payer BC, SELFPAY ==
[2024-10-19 15:56] VITALS: BP 138/88; PULSE 79; O2SAT 98; BMI 37.6
--- NOTE | 2024-10-19 15:56 | MHC.PC.OV ---
Vital Signs 10/19/24 15:56 Height 5 ft 7 in Weight 240 lb BMI 37.6 BP 138/88 Blood Pressure Location Lt brachial Position Sitting Pulse 79 Pulse Source Pulse Oximeter Pulse Oximetry (%) 98 Oxygen Delivery Method Room Air Intake Visit Reasons: f/u BP and anxiety Allergies peanut Allergy (Unknown, Verified 10/19/24 15:57) Unknown shrimp Allergy (Unknown, Verified 10/19/24 15:57) Unknown Medication List - Last Reconciled 10/19/24 by Bethanie Wong PA-C buspirone 5 mg PO BID hydroxyzine HCl 25 mg PO BEDTIME lisinopril 5 mg PO DAILY loratadine-pseudoephedrine 10-240 mg ER (Claritin-D 24 Hour) 1 tab PO DAILY lorazepam 1 mg PO TID PRN multivitamin 1 tab PO DAILY Tobacco use date assessed: 10/19/24 Dental Screening Dental Screen Date: 08/19/24 HPI f/u BP and anxiety HPI Details 54-year-old female with past medical history of hypertension, anxiety, hyperlipidemia, hepatic steatosis last seen 08/2024 coming in for follow up. Presenting with hypertension and anxiety prior to her planned foot surgery. There are concerns regarding anxiety management due to recent events involving her son's accident, resulting in the increase of Buspirone dosage to 7.5 mg twice a day. She reports hypertension concerns with recent measurements of 130/90, previously noted at 140/90, which could impact the feasibility of her surgery. Management includes an increment of Lisinopril to 10 mg daily to stabilize her blood pressure. The patient experiences anxiety-related muscular pain, prominent while lying down, which may also be due to sleep posture or possibly related to tension. [facility] Medical History Hyperlipidemia Fatty liver Carpal tunnel syndrome, bilateral Surgical History Hx of wisdom tooth extraction Hx of reduction mammoplasty Family History Father CVD (cardiovascular disease) S/P triple vessel bypass Mother Cancer Bladder cancer Sister Thyroid nodule Paternal Grandmother Stroke Social History Housing: House Alcohol intake: current Alcohol intake frequency: holidays/special occasions only Patient Tobacco Use Status: Former Tobacco user Tobacco use type: Cigarette e-Cigarette/Vaping Use: Never Used Second Hand Smoke Exposure: Yes service: No Current occupational status: employed Cognitive needs: No Hearing needs: No Vision needs: Yes (glasses) Questionnaire PHQ-9 Over the last 2 weeks, how often have you been bothered by any of the following problems? 1. Little interest or pleasure in doing things: not at all 2. Feeling down, depressed, or hopeless: not at all 3. Trouble falling or staying asleep, or sleeping too much: several days 4. Feeling tired or having little energy: not at all 5. Poor appetite or overeating: not at all 6. Feeling bad about yourself - or that you are a failure or have let yourself or your family down: not at all 7. Trouble concentrating on things, such as reading the newspaper or watching television: not at all 8. Moving or speaking so slowly that other people could have noticed. Or the opposite - being so fidgety or restless that you have been moving around a lot more than usual: not at all 9. Thoughts that you would be better off or of hurting yourself in some way: not at all Total score: 1 Depression Screening Interpretation: Positive Depression Screening Follow-up: Existing condition and In treatment Depression Screening Done: Yes 05739 - PHQ-9 Billing: Yes Source: Developed by Drs. James Malik, Gregoria San, George Baeza and colleagues, with an educational mario from [employer]. Thrive Questionnaire Date Thrive assessed: 08/19/24 I am a: Patient What is your living situation today?: I have a steady place to live Within the past 12 months, did the food you bought not last and you didn't have the money to get more?: Never true Within the past 12 months, did you worry whether your food would run out before you got money to buy more?: Never true Do you have trouble paying for medicines?: No Do you have trouble getting transportation to medical appointments?: No Do you have trouble paying your heating and electricity bill?: No Do you have trouble taking care of your child, family member or friend?: No Do you have trouble with day-to-day activities such as bathing, preparing meals, shopping, managing finances, etc.?: No Are you currently unemployed and looking for a job?: No Are you interested in more education?: No Please select the resources that you would like help with: None Currently or been in a relationship where the following occur: No concerns reported THRIVE Score: 0 AUDIT C Alcohol Use Questionnaire (AUDIT-C) 1. How often do you have a drink containing alcohol?: Monthly or less Total Score: 1 SATHISH-7 AMB Questionnaire SATHISH-7 Date SATHISH - 7 assessed: 08/19/24 Feeling nervous, anxious, or on edge: 1 = Several days Not being able to stop or control worryin = Several days Worrying too much about different things: 0 = Not at all Trouble relaxin = Several days Being so restless that it is hard to sit still: 0 = Not at all Becoming easily annoyed or irritable: 0 = Not at all Feeling afraid as if something awful might happen: 1 = Several days Total SATHISH-7 score (0-4 normal; 5-9 mild; 10-14 moderate; 15-21 severe): 4 Source: Developed by Drs. James Malik, Gregoria San, George Baeza and colleagues, with an educational mario from [employer]. SATHISH-7 Assessment Billing SATHISH-7 Assessment Tool: SATHISH-7 Assessment 94533 Review of Systems Const Denies body aches, Denies chills, Denies fever(s), Denies headache(s) and Denies poor appetite Eyes Reports no additional complaints ENT Denies dizziness and Denies headache(s) Card Denies chest pain, Denies lightheadedness and Denies dyspnea Resp Denies cough and Denies dyspnea GI Denies nausea and Denies vomiting Reports no additional complaints Musc Reports no additional complaints and Denies abnormal gait Skin/Breast Reports system reviewed and no additional complaints, except as documented Neuro Denies abnormal gait, Denies dizziness and Denies headache(s) Psych Reports no additional complaints Physical exam (Primary Care) Vital Signs: Last Vital Signs Pulse 79 10/19/24 15:56 BP 138/88 10/19/24 15:56 Pulse Ox 98 10/19/24 15:56 Oxygen Delivery Method Room Air 10/19/24 15:56 BMI result Body Mass Index 37.6 Tobacco/Smoking Status: Tobacco use Status Tobacco use date assessed 10/19/24 10/19/24 16:02 Patient Tobacco Use Status Former Tobacco user 10/19/24 16:02 Tobacco use type Cigarette 10/19/24 16:02 e-Cigarette/Vaping Use Never Used 10/19/24 16:02 PHQ-9: PHQ-9 Score PHQ-9: Total score 1 10/19/24 16:02 Depression Screening Interpretation: Positive Depression Screening Follow-up: Existing condition and In treatment Thrive Assessment: Date of Thrive Assessment Date Thrive assessed 08/19/24 10/19/24 16:02 Currently or been in a relationship where the following occur: No concerns reported Const General: cooperative, healthy appearing, comfortable and no acute distress Orientation/consciousness: patient oriented x3 HENMT Head: Yes normocephalic Ears: hearing grossly normal bilaterally General nose exam: Normal external nose present Eyes General: appearance normal, both eyes and all related structures Conjunctivae: conjunctivae normal Neck Neck: Yes full ROM and Yes no lymphadenopathy Resp Effort & Inspection: normal respiratory effort Auscultation: clear to auscultation bilaterally, no crackles, no rales, no rhonchi and no wheezes Cardio Rate: regular rate Rhythm: regular rhythm Skin General skin exam: no rashes or lesions noted Neuro General: patient oriented x3 Gait exam (Neuro): Normal gait present Extrem General: Yes normal to inspection, Yes full ROM and No edema Psych Affect: normal affect Attitude: cooperative Insight: Good insight present (Psych) Judgement: Good judgement present (Psych) Coding Level of Care Code Est Pt Level 3 (49599) Diagnoses Hypertension I10 Hepatic steatosis K76.0 Obesity E66.9 Anxiety F41.9 Insomnia G47.00 Additional Codes SATHISH-7 Assessment Billing - SATHISH-7 Assessment Tool: SATHISH-7 Assessment 07991 ([id number]) PHQ-9 - 04373 - PHQ-9 Billing: Yes ([id number]) Assessment & Plan Assessment & Plan (1) Hypertension: Code(s): I10 - Essential (primary) hypertension Category: Medical Plan: Plan to increase lisinopril to 10 mg as blood pressure is elevated 138/88 in the office today. Advised patient to obtain a blood pressure cuff and monitor the blood pressure at home 3-4 times per week and bring log to next visit. Avoid salt intake and encourage healthy diet and regular exercise. (2) Hepatic steatosis: Code(s): K76.0 - Fatty (change of) liver, not elsewhere classified Category: Medical Plan: Healthy diet and regular exercise is encouraged. (3) Obesity: Code(s): E66.9 - Obesity, unspecified Category: Medical Plan: Healthy diet and regular exercise is encouraged. (4) Anxiety: Code(s): F41.9 - Anxiety disorder, unspecified Category: Medical Plan: Patient has been doing well on the BuSpar 5 mg. Plan to increase to 7.5 mg twice daily for better management of anxiety. (5) Insomnia: Code(s): G47.00 - Insomnia, unspecified Category: Medical Plan: For insomnia plan to continue on hydroxyzine 25 mg as needed at bedtime. Follow up at next visit Plan This note was constructed using voice recognition software. While every effort has been made to ensure accuracy and shift lab technician, still areas may have been included sometimes these areas may affect the content or meeting of the given symptoms. Total time spent caring for the patient today was 20 minutes. This includes time spent before the visit reviewing the chart, time spent during the visit, and time spent after the visit and documentation. Patient was informed and verbally consented to the use of an ambient scribe for clinic note documentation during this visit. Orders: Orders Complete Blood Count Auto Diff Today Z01.818 - Encounter for other preprocedural examination Hemoglobin A1c Today Z01.818 - Encounter for other preprocedural examination Comprehensive Met. Panel Today Z01.818 - Encounter for other preprocedural examination ECG 12 lead EKG Today Z01.818 - Encounter for other preprocedural examination Medications: New buspirone 7.5 mg PO BID 60 tabs 2RF lisinopril 10 mg PO DAILY 30 tabs 1RF Discontinued buspirone Discontinued Reason: Patient no longer taking 5 mg PO BID 60 tabs 0RF lisinopril Discontinued Reason: Patient no longer taking 5 mg PO DAILY 30 tabs 2RF
--- OUTSIDE RECORDS SUMMARY | 2024-10-19 18:33 | XMS_ITS ---
Author Organization [facility] Address [address] [place] [address] Care Team Providers Care Electroplater Helper Name Role Phone Bethanie Wong Primary Care Provider Unavailab Janett Sommers [phone] REASON FOR VISIT Rebooking surgery Encounters Encounter Location Date Provider Diagnosis [address] [address] 08/24/2024 Janett Taylor Plan Of Treatment Next Appt Details Provider Name:Janett fried, 11/20/2024 12:45:00 PM, [address] [place] [address], [phone], Provider Name:Janett fried, 12/02/2024 09:15:00 AM, [address] [place], [address], Provider Name:Janett fried, 12/08/2024 01:45:00 PM, [address] [place] [address], [phone], Provider Name:Janett fried, 12/15/2024 01:45:00 PM, [address] [place] [address], [phone], Provider Name:Janett fried, 12/29/2024 01:45:00 PM, [address] [place] [address], [phone], Progress Notes * Amarilis VALLEJOnDOB: 3 (53 yo F)Acc No.[id number]:08/24/2024 Patient:?Josh VALLEJO :1970???Age:53 Y???Sex:Female Address:[address] [place] [address], [phone] * true * Date:? Generated for Lisha shipley/Garry/eTransmitting on:?10/19/2024 06:33 PM EDT
--- OUTSIDE RECORDS SUMMARY | 2024-10-19 18:33 | XMS_ITS ---
Author Organization [facility] Address [address] [place] [address] Care Team Providers Care Personal Financial Advisor Name Role Phone Bethanie Wong Primary Care Provider UnavailJanett Mondragon [phone] Encounters Encounter Location Date Provider Diagnosis [address] [address] 08/18/2024 Janett Taylor Plan Of Treatment Next Appt Details Provider Name:Janett fried, 11/20/2024 12:45:00 PM, [address] [place] [address], [phone], Provider Name:Janett fried, 12/02/2024 09:15:00 AM, [address] [place], [address], Provider Name:Janett fried, 12/08/2024 01:45:00 PM, [address] [place] [address], [phone], Provider Name:Janett fried, 12/15/2024 01:45:00 PM, [address] [place] [address], [phone], Provider Name:Janett fried, 12/29/2024 01:45:00 PM, [address] [place] [address], [address], Progress Notes * Wang VALLEJOOB: 3 (54 yo F)Acc No.[id number]:08/18/2024 PROGRESS NOTES Patient:Josh LOPEZ Provider:?Janett Taylor DPM :1970???Age:53 Y???Sex:Female D ate:08/18/2024 Address:[address] [place], [place] [address] Pcp:Bethanie Wong Subjective: * Chief Complaints: * ??? * Medical History:? Objective: * Vitals:? Assessment: Plan: * Treatment: * Images: * The named appointment provid er may or may not be the originator of this progress note, and it is not deemed complete until electronically signed by the appointment provider. Sign off status: Pending * Provider:?Janett Taylor DPM Date:? Generated for Lisha shipley/Garry/Lastitting on:?10/19/2024 06:33 PM EDT
--- OUTSIDE RECORDS SUMMARY | 2024-10-19 18:33 | XMS_ITS ---
Author Organization [facility] Address [address] [place] [address] Care Team Providers Care Counter Hand Name Role Phone Bethanie Wong Primary Care Provider UnavailJanett Mondragon [phone] Encounters Encounter Location Date Provider Diagnosis [address] [address] 08/04/2024 Janett Taylor Plan Of Treatment Next Appt Details Provider Name:Janett fried, 11/20/2024 12:45:00 PM, [address] [place] [address], [phone], Provider Name:Janett fried, 12/02/2024 09:15:00 AM, [address] [place], [address], Provider Name:Janett fried, 12/08/2024 01:45:00 PM, [address] [place] [address], [phone], Provider Name:Janett fried, 12/15/2024 01:45:00 PM, [address] [place] [address], [phone], Provider Name:Janett fried, 12/29/2024 01:45:00 PM, [address] [place] [address], [phone], Progress Notes * Wang VALLEJOOB: 3 (54 yo F)Acc No.[id number]:08/04/2024 PROGRESS NOTES Patient:Josh LOPEZ Provider:?Janett Taylor DPM :1970???Age:53 Y???Sex:Female D ate:08/04/2024 Address:[address] [place], [place] [address] Pcp:Bethanie Wong Subjective: * Chief Complaints: * ??? * Medical History:? Objective: * Vitals:? Assessment: Plan: * Treatment: * Images: * The named appointment provid er may or may not be the originator of this progress note, and it is not deemed complete until electronically signed by the appointment provider. Sign off status: Pending * Provider:?Janett Taylor DPM Date:?04/2025 Generated for Lisha shipley/Garry/Lastitting on:?10/19/2024 06:33 PM EDT
--- OUTSIDE RECORDS SUMMARY | 2024-10-19 18:34 | XMS_ITS | Patient Health Record ---
Author Organization [facility] Address [address] [place] [address] Care Team Providers Care Fire Extinguisher Technician Name Role Phone Geetha Willoughby Unavailable [phone] Reason For Referral No Information Medications Medication SIG (Take, Route, Fr equency, Duration) Notes Start Date End Date Status Multivitamins 1 ORAL daily for -3 [facility] 03/17/2014 Active ZyrTEC 10MG 1 ORAL daily for -3 [facility] 12/09/2012 Active Immunizations Vaccine Route Administration Date Status Comme nts Tdap Intramuscular 12/09/2012 Pending Problems Problem Type SNOMED Code ICD Code Onset Dates Problem Status W/U Status Risk Notes Problem Polycystic ovary syndrome (disorder) (627612891) Polycystic ovaries (256.4) Active confirmed Diag Problem Obesity (517537860) Obesity, unspecified (278.00) Active confirmed Major Problem Excessive and frequent menstruation (440450345) Excessive or frequent menstruation (626.2) Active confirmed Diag Problem Irregular menstrual cycle (50282626) Irregular menstrual cycle (626.4) Active confirmed Diag Problem Gynecological examination normal (219117502308065) Routine gynecological examination (V72.31) Active confirmed Diag Plan Of Treatment Pending Test Test Name Order Date MAMMOGRAM, SCREENING 08/30/2014 Insurance Providers Payer Name Payer Address Payer Phone Subscriber Number Group Number Insured Name Patient Relationship to Insured Coverage Start Date Coverage End Date [employer] [address] [place] [address] [phone] [id number] DAVID VALLEJO Self - patient is the insured
--- OUTSIDE RECORDS SUMMARY | 2024-10-19 18:34 | XMS_ITS | Patient Health Record ---
Author Organization [facility] Kristel Haasley Address [address] [place] [address] Care Team Providers Care Fish Tender Name Role Phone Judith Bethanei Primary Care Provider Unavailab Janett Sommers Unavailable [phone] Skylar Reyna Unavailable [phone] Allergies Allergen (clinical drug ingredient) Drug/Non Drug [...] Referring Provider Last Name Lui Referred Organization [facility] Referred Provider Skylar Reyna Referred Address [address] [facility],[place], [place],[address],[place] Referred Provider Specialty Podiatry Referral Priority Routine [...] Gianni Referring Provider Last Name Lui Referred 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 conservative treatment Problem Plantar nerve lesion (872381015) Lesion of plantar nerve, left lower limb (G57.62) Active confirmed Problem [id number] Plantar fasciitis of left foot (M72.2) Active confirmed Problem 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) 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) Active confirmed Vital Signs Blood pressure diastolic 80 mm Hg 07/15/2024 Height 5ft7in in 07/15/2024 Blood pressure systolic 133 mm Hg 07/15/2024 Weight 233 lbs 07/15/2024 BMI 36.49 kg/m2 07/15/2024 Procedures Procedure Date Ordered Date Performed Result Body Sit e 08364, J0702- Neuroma/Injection 10/28/2023 N/A 24794, J0702- Neuroma/Injection 12/09/2023 N/A Encounters Encounter Location Date Provider Diagnosis [facility] [address] 10/28/2023 Skyalr Black Lesion of plantar nerve, left lower [...] Sprain of left foot, initial encounter S93.602A [facility] [address] [address] 12/09/2023 Skylar Black Plantar fasciitis of left foot M72.2 ; Pain in right foot M79.671 ; Calcaneal spur, left foot M77.32 ; Pain in left foot M79.672 ; Interstitial myositis of left foot M60.172 ; Bursitis of left foot M77.52 ; Pain in right ankle and joints of right foot M25.571 and Lesion of plantar nerve, right lower limb G57.61 [facility] [address] [address] 02/10/2024 Skylar Black Plantar fasciitis of left foot M72.2 ; Lesion of plantar nerve, right lower limb G57.61 ; Pain in right foot M79.671 ; Calcaneal spur, left foot M77.32 ; Pain in left foot M79.672 ; Interstitial myositis of left foot M60.172 ; Bursitis of left foot M77.52 and Pain in right ankle and joints of right foot M25.[address] [address] 02/18/2024 Skylar Black Pain in left foot M79.672 ; Lesion of plantar nerve, right lower limb G57.61 and Bursitis of intermetatarsal bursa of left foot M77.[address] [address] 03/30/2024 Janett Perica Pain in right foot M79.671 and Lesion of plantar nerve, right lower limb G57.[address] [facility] [address] 07/15/2024 Jnaett Perica Pain in right foot M79.671 and Lesion of plantar nerve, right lower limb G57.[address] [facility] [address] 07/24/2024 Janett Perica [facility] [address] 11/25/2023 Skylar Black [facility] [address] [address] 02/10/2024 Skylar Black [facility] [address] 02/18/2024 Skylar Black [address] [address] 03/30/2024 Janett Perica [facility] [place] [address] [place] [address] 05/07/2024 Janett Taylor [facility] [place] [address] [place] [address] 06/25/2024 Janett Magallanesa [facility] [place] [address] [place] [address] 07/15/2024 Janett Magallanesa [facility] [place] [address] [place] [address] 07/22/2024 Janett Magallanesa [facility] [place] [address] [place] [address] 08/24/2024 Janett Taylor Assessments Encounter Date Diagnosis (ICD Code) Assessment Notes Treatment Notes Treatment Clinical Notes Section Notes 10/28/2023 Contusion of left foot, initial encounter [...] fasciitis of left foot (ICD-10 - M72.2) 10/28/2023 Pain in right foot (ICD-10 - M79.671) 12/09/2023 Pain in left foot (ICD-10 - M79.672) 02/10/2024 Calcaneal spur, left foot (ICD-10 - M77.32) 02/10/2024 Pain in left foot (ICD-10 - M79.672) 12/09/2023 Interstitial myositis of left foot (ICD-10 - M60.172) 10/28/2023 Calcaneal spur, left foot (ICD-10 - M77.32) 10/28/2023 Pain in left foot (ICD-10 - [...] X ray : Foot, right 3V 03/30/2024 81861, J0702- Neuroma/Injection 09/16/19 54148, J0702- Neuroma/Injection 10/28/19 59158, J0702- Neuroma/Injection 12/09/19 Next Appt Details Provider Name:Janett fried, 11/20/2024 12:45:00 PM, [address] [place] [address], [address], Provider Name:Janett fried, 12/02/2024 09:15:00 AM, [address] [place], [address], Provider Name:Janett fried, 12/08/2024 01:45:00 PM, [address] [place] [address], [address], Provider Name:Janett fried, 12/15/2024 01:45:00 PM, [address] [place] [address], [address], Provider Name:Janett Izzy fried, 12/29/2024 01:45:00 PM, [address] [place] [address], [address], Insurance Providers Payer Name Payer Address Payer Phone Subscriber Number Group Number Insured Name Patient Relationship to Insured Coverage Start Date Coverage End Date [facility] [address] [place] [address] [id number] Vishnu MejiaSangitanamrata Self - patient is the insured Medical (General) History Medical History History ICD Code chicken pox bone implants/screws back, hip, knee pain Broken bones covid-19 Warts Surgical History Surgery Date(Month/Year) wisdom teeth 2004 breast reduction 2014 Colonoscopy 08/17
== END 2024-10-19 16:38 | disposition home or self-care (01) ==
LOC: HO.HMCH 15:49
DX: I10 Essential (primary) hypertension (principal); K76.0 Fatty (change of) liver, not elsewhere classified; E66.9 Obesity, unspecified; Z68.37 Body mass index [BMI] 37.0-37.9, adult; F41.9 Anxiety disorder, unspecified; G47.00 Insomnia, unspecified

== ENCOUNTER → 2024-10-19 15:48 | Outpatient (BNVA) | payer BC, SELFPAY | DX: I10 Essential (primary) hypertension (principal); K76.0 Fatty (change of) liver, not elsewhere classified; E66.9 Obesity, unspecified; Z68.37 Body mass index [BMI] 37.0-37.9, adult; F41.9 Anxiety disorder, unspecified; G47.00 Insomnia, unspecified; Z79.899 Other long term (current) drug therapy | CPT/HCPCS: 96127 ==

== ENCOUNTER 2024-10-21 08:13 | Outpatient (AMB) | payer BC, SELFPAY ==
--- OUTSIDE RECORDS SUMMARY | 2024-10-21 08:25 | XMS_ITS ---
Author Organization [facility] Address [address] [place] [address] Care Team Providers Care Mask Designer Name Role Phone Bethanie Wong Primary Care Provider UnavailJanett Mondragon [phone] Encounters Encounter Location Date Provider Diagnosis [address] [address] 08/18/2024 Janett Taylor Plan Of Treatment Next Appt Details Provider Name:Janett fried, 11/20/2024 12:45:00 PM, [address] [place] [address], [phone], Provider Name:Janett fried, 12/02/2024 09:15:00 AM, [address] [place], [address], Provider Name:Janett fried, 12/08/2024 01:45:00 PM, [address] [place] [address], [address], Provider Name:Janett fried, 12/15/2024 01:45:00 PM, [address] [place] [address], [address], Provider Name:Janett fried, 12/29/2024 01:45:00 PM, [address] [place] [address], [address], Progress Notes * Wang VALLEJOOB: 3 (54 yo F)Acc No.[id number]:08/18/2024 PROGRESS NOTES Patient:Josh LOPEZ Provider:?Janett Taylor DPM :1970???Age:53 Y???Sex:Female D ate:08/18/2024 Address:[address] [place], [place] [address] Pcp:Bethanie Wong Subjective: * Chief Complaints: * ??? * Medical History:? Objective: * Vitals:? Assessment: Plan: * Treatment: * Images: * The named appointment provid er may or may not be the originator of this progress note, and it is not deemed complete until electronically signed by the appointment provider. Sign off status: Pending * Provider:?Janett Taylor DPM Date:? Generated for Lisha shipley/Garry/Lastitting on:?10/21/2024 08:25 AM EDT
--- OUTSIDE RECORDS SUMMARY | 2024-10-21 08:26 | XMS_ITS ---
Author Organization [facility] Address [address] [place] [address] Care Team Providers Care Bush Hog Operator Name Role Phone Bethanie Wong Primary Care Provider UnavailJanett Mondragon [phone] Encounters Encounter Location Date Provider Diagnosis [address] [address] 08/04/2024 Janett Taylor Plan Of Treatment Next Appt Details Provider Name:Janett fried, 11/20/2024 12:45:00 PM, [address] [place] [address], [address], Provider Name:Janett fried, 12/02/2024 09:15:00 AM, [address] [place], [address], Provider Name:Janett fried, 12/08/2024 01:45:00 PM, [address] [place] [address], [address], Provider Name:Janett fried, 12/15/2024 01:45:00 PM, [address] [place] [address], [address], Provider Name:Janett fried, 12/29/2024 01:45:00 PM, [address] [place] [address], [address], Progress Notes * Wang VALLEJOOB: 3 (54 yo F)Acc No.[id number]:08/04/2024 PROGRESS NOTES Patient:Josh LOPEZ Provider:?Janett Taylor DPM :1970???Age:53 Y???Sex:Female D ate:08/04/2024 Address:[address] [place], [place] [phone] Pcp:Bethanie Wong Subjective: * Chief Complaints: * ??? * Medical History:? Objective: * Vitals:? Assessment: Plan: * Treatment: * Images: * The named appointment provid er may or may not be the originator of this progress note, and it is not deemed complete until electronically signed by the appointment provider. Sign off status: Pending * Provider:?Janett Taylor DPM Date:?04/2025 Generated for Lisha shipley/Garry/Lastitting on:?10/21/2024 08:26 AM EDT
--- OUTSIDE RECORDS SUMMARY | 2024-10-21 08:26 | XMS_ITS | Patient Health Record ---
Author Organization [facility] Address [address] [place] [address] Care Team Providers Care Publicist Name Role Phone Geetha Willoughby Unavailable [phone] Reason For Referral No Information Medications Medication SIG (Take, Route, Fr equency, Duration) Notes Start Date End Date Status Multivitamins 1 ORAL daily for -3 [facility] 03/17/2014 Active ZyrTEC 10MG 1 ORAL daily for -3 [facility] 12/09/2012 Active Immunizations Vaccine Route Administration Date Status Comme nts Tdap Intramuscular 12/09/2012 Pending Problems Problem Type SNOMED Code ICD Code Onset Dates Problem Status W/U Status Risk Notes Problem Polycystic ovary syndrome (disorder) (176042167) Polycystic ovaries (256.4) Active confirmed Diag Problem Obesity (953653559) Obesity, unspecified (278.00) Active confirmed Major Problem Excessive and frequent menstruation (299473323) Excessive or frequent menstruation (626.2) Active confirmed Diag Problem Irregular menstrual cycle (00336174) Irregular menstrual cycle (626.4) Active confirmed Diag Problem Gynecological examination normal (743054464893082) Routine gynecological examination (V72.31) Active confirmed Diag Plan Of Treatment Pending Test Test Name Order Date MAMMOGRAM, SCREENING 08/30/2014 Insurance Providers Payer Name Payer Address Payer Phone Subscriber Number Group Number Insured Name Patient Relationship to Insured Coverage Start Date Coverage End Date [employer] [address] [place] [address] [id number] DAVID VALLEJO Self - patient is the insured
--- OUTSIDE RECORDS SUMMARY | 2024-10-21 08:26 | XMS_ITS | Patient Health Record ---
Author Organization [facility] Kristel Haasley Address [address] [place] [address] Care Team Providers Care Accounts Receivable Clerk Name Role Phone Judith Bethanie Primary Care Provider Unavailab Janett Sommers Unavailable [phone] Skylar Reyna Unavailable [phone] Allergies Allergen (clinical drug ingredient) Drug/Non Drug [...] Referring Provider Last Name Lui Referred Organization [facility] Referred Provider Skylar Reyna Referred Address [address] [facility],[place], [place],[address],[place] Referred Provider Specialty Podiatry Referral Priority Routine [...] Gianni Referring Provider Last Name Lui Referred 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 to previous conservative treatment Problem Plantar nerve lesion (733930763) Lesion of plantar nerve, left lower limb (G57.62) Active confirmed Problem 30986283152710588 Plantar fasciitis of left foot (M72.2) Active confirmed Problem 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 Vital Signs Blood pressure diastolic 80 mm Hg 07/15/2024 Height 5ft7in in 07/15/2024 Blood pressure systolic 133 mm Hg 07/15/2024 Weight 233 lbs 07/15/2024 BMI 36.49 kg/m2 07/15/2024 Procedures Procedure Date Ordered Date Performed Result Body Sit e 31064, J0702- Neuroma/Injection 10/28/2023 N/A 38339, J0702- Neuroma/Injection 12/09/2023 N/A Encounters Encounter Location Date Provider Diagnosis [facility] [address] 10/28/2023 Skylar Black Lesion of plantar nerve, [...] Sprain of left foot, initial encounter S93.602A [facility] [address] [address] 12/09/2023 Skylar Black Plantar fasciitis of left foot M72.2 ; Pain in right foot M79.671 ; Calcaneal spur, left foot M77.32 ; Pain in left foot M79.672 ; Interstitial myositis of left foot M60.172 ; Bursitis of left foot M77.52 ; Pain in right ankle and joints of right foot M25.571 and Lesion of plantar nerve, right lower limb G57.61 [facility] [address] [address] 02/10/2024 Skylar Black Plantar fasciitis of left foot M72.2 ; Lesion of plantar nerve, right lower limb G57.61 ; Pain in right foot M79.671 ; Calcaneal spur, left foot M77.32 ; Pain in left foot M79.672 ; Interstitial myositis of left foot M60.172 ; Bursitis of left foot M77.52 and Pain in right ankle and joints of right foot M25.[address] [address] 02/18/2024 Skylar Black Pain in left foot M79.672 ; Lesion of plantar nerve, right lower limb G57.61 and Bursitis of intermetatarsal bursa of left foot M77.[address] [address] 03/30/2024 Janett Perica Pain in right foot M79.671 and Lesion of plantar nerve, right lower limb G57.61 [facility] [address] 07/15/2024 Janett Perica Pain in right foot M79.671 and Lesion of plantar nerve, right lower limb G57.61 [facility] [address] 07/24/2024 Janett Perica [facility] [address] 11/25/2023 Skylar Black [facility] [address] [address] 02/10/2024 Skylar Black [facility] [address] 02/18/2024 Skylar Black [address] [address] 03/30/2024 Janett Perica [facility] [place] [address] [place] [address] 05/07/2024 Janett Taylor [facility] [place] [address] [place] [address] 06/25/2024 Janett Magallanesa [facility] [place] [address] [place] [address] 07/15/2024 Janett Magallanesa [facility] [place] [address] [place] [address] 07/22/2024 Janett Magallanesa [facility] [place] [address] [place] [address] 08/24/2024 Janett Taylor Assessments Encounter Date Diagnosis [...] X ray : Foot, right 3V 03/30/2024 54897, J0702- Neuroma/Injection 09/16/19 23776, J0702- Neuroma/Injection 10/28/19 40129, J0702- Neuroma/Injection 12/09/19 Next Appt Details Provider Name:Janett fried, 11/20/2024 12:45:00 PM, [address] [place] [address], [address], Provider Name:Janett fried, 12/02/2024 09:15:00 AM, [address] [place], [address], Provider Name:Janett fried, 12/08/2024 01:45:00 PM, [address] [place] [address], [address], Provider Name:Janett fried, 12/15/2024 01:45:00 PM, [address] [place] [address], [address], Provider Name:Janett Izzy fried, 12/29/2024 01:45:00 PM, [address] [place] [address], [address], Insurance Providers Payer Name Payer Address Payer Phone Subscriber Number Group Number Insured Name Patient Relationship to Insured Coverage Start Date Coverage End Date [facility] [employer] [facility] [employer] [address] [place] [address] [id number] Vishnu MejiaSangitanamrata Self - patient is the insured Medical (General) History Medical History History ICD Code chicken pox bone implants/screws back, hip, knee pain Broken bones covid-19 Warts Surgical History Surgery Date(Month/Year) wisdom teeth 2004 breast reduction 2014 Colonoscopy 08/17
--- OUTSIDE RECORDS SUMMARY | 2024-10-21 08:26 | XMS_ITS ---
Author Organization [facility] Address [address] [place] [address] Care Team Providers Care Landscape Maintenance Internship Name Role Phone Bethanie Wong Primary Care Provider Unavailab Janett Sommers [phone] REASON FOR VISIT Rebooking surgery Encounters Encounter Location Date Provider Diagnosis [address] [address] 08/24/2024 Janett Taylor Plan Of Treatment Next Appt Details Provider Name:Janett fried, 11/20/2024 12:45:00 PM, [address] [place] [address], [address], Provider Name:Janett fried, 12/02/2024 09:15:00 AM, [address] [place], [address], Provider Name:Janett fried, 12/08/2024 01:45:00 PM, [address] [place] [address], [address], Provider Name:Janett fried, 12/15/2024 01:45:00 PM, [address] [place] [address], [address], Provider Name:Janett fried, 12/29/2024 01:45:00 PM, [address] [place] [address], [address], Progress Notes * Amarilsi VALLEJOnDOB: 3 (53 yo F)Acc No.[id number]:08/24/2024 Patient:?Josh VALLEJO :1970???Age:53 Y???Sex:Female Address:[address] [place] [address], [address] * true * Date:? Generated for Lisha shipley/Garry/eTransmitting on:?10/21/2024 08:25 AM EDT
[2024-10-21 08:35] VITALS: BMI 37.4
--- NOTE | 2024-10-21 08:35 | A.OFFVIS_ITS ---
VS Expanded 10/21/24 08:35 10/21/24 08:49 Height 5 ft 7 in 5 ft 7 in Weight 238 lb 8.642 oz 239 lb BMI 37.4 37.4 Intake Visit Reasons: Fatty Liver, Obesity Allergies peanut Allergy (Unknown, Verified 10/19/24 15:57) Unknown shrimp Allergy (Unknown, Verified 10/19/24 15:57) Unknown Nutrition Presentation Details: Pt presents for MNT for fatty liver, obesity food frequency fruits: 2/d fish : 1 x/wk diary: 3-4/d vegetables: 3x/wk fried : 2x/wk pastries: 2/d fluids: water, juice , low sugar beverages physical activity: limited waiting for foot surgery on 11/01/24 etoh/smoking BS Monitoring Most Recent Diabetes Results: No Data to Display LND-Ylagxer-Oq.Jeor Equation Height: 5 ft 7 in Weight: 239 lb Resting Metabolic Rate: 1729.79 Calculated Activity Level: Sedentary Calories Needed to Maintain Weight: 2075.75 Diagnosis Nutrition problem #1: excessive energy intake As related to (etiology) #1: diagnosis As evidenced by (sign/symptom) #1: knowledge deficit of diet [facility] Medical History Hyperlipidemia Fatty liver Carpal tunnel syndrome, bilateral Surgical History Hx of wisdom tooth extraction Hx of reduction mammoplasty Family History Father CVD (cardiovascular disease) S/P triple vessel bypass Mother Cancer Bladder cancer Sister Thyroid nodule Paternal Grandmother Stroke Social History Housing: House Alcohol intake: current Alcohol intake frequency: holidays/special occasions only Patient Tobacco Use Status: Former Tobacco user Tobacco use type: Cigarette e-Cigarette/Vaping Use: Never Used Second Hand Smoke Exposure: Yes service: No Current occupational status: employed Cognitive needs: No Hearing needs: No Vision needs: Yes (glasses) Assessment & Plan Assessment & Plan (1) Hepatic steatosis: Code(s): K76.0 - Fatty (change of) liver, not elsewhere classified Category: Medical Plan: Wt: 109 Kg ( 10/16 ) Est kcal needs as per MSJ: 2100 (40% carb, 30% protein/fat) Est fluid needs as per 25-30 ml/d: 3300 Est prot per day as per 1 g/kg bw: 109 Recommend fiber intake : 8-10 g per day and gradually increase to 25-28 g per day for women and 35-38 g for men or as tolerated Recommend sodium intake per day : less than 2000 mg Educated patient on: ( R = reviewed V = verbalizes understanding N/R = needs review N/A = not applicable * Food sources of carbohydrate, adequate serving sizes and its role in various health conditions: R V N/R * Differences between complex carbohydrates a simple carbohydrates, role of fiber in diet: R * Lean protein sources of foods: R * Differences between types of fats and role in diet (mono on saturated fat fatty acids, saturated fatty acids, trans fats): R V * Food sources of sodium in salt and healthy modifications for heart health in kidney health: R V R/V * Vitamins and minerals: R V N/R * Healthy plate method concept: R V N/R * Physical activity: Benefits a precaution: R V N/R * Patient Instructions: Work on mindful eating Follow healthy plate method, reducing on amount of fat added to the foods see 8451-8966 beba meal plan low fat/high fiber Coding Level of Care Code Nutr Indiv Intake (56532) Diagnoses Hepatic steatosis K76.0 Time Spent (min) 30
[2024-10-21 08:49] VITALS: BMI 37.4
== END 2024-10-21 09:09 | disposition home or self-care (01) ==
LOC: HO.ENCR 08:13
PROVIDERS: Visit Provider Dietitian, Registered
DX: K76.0 Fatty (change of) liver, not elsewhere classified (principal)

== ENCOUNTER → 2024-10-21 08:13 | Outpatient (BNVA) | payer BC, SELFPAY | PROVIDERS: Visit Provider Dietitian, Registered | DX: K76.0 Fatty (change of) liver, not elsewhere classified (principal); E66.9 Obesity, unspecified; Z68.37 Body mass index [BMI] 37.0-37.9, adult; Z71.3 Dietary counseling and surveillance | CPT/HCPCS: 97802 ==

== ENCOUNTER 2024-11-13 08:00 | Outpatient (REF) | payer BC, SELFPAY ==
--- OUTSIDE RECORDS SUMMARY | 2024-11-13 08:03 | XMS_ITS ---
Author Organization [facility] Address [address] [place] [address] Care Team Providers Care Hammer Runner Name Role Phone Bethanie Wong Primary Care Provider UnavailJanett Mondragon [phone] Encounters Encounter Location Date Provider Diagnosis [address] [address] 08/18/2024 Janett Taylor Plan Of Treatment Next Appt Details Provider Name:Janett fried, 11/20/2024 12:45:00 PM, [address] [place] [address], [address], Provider Name:Janett fried, 12/02/2024 09:15:00 AM, [address] [place], [address], Provider Name:Janett fried, 12/08/2024 01:45:00 PM, [address] [place] [address], [address], Provider Name:Janett fried, 12/15/2024 01:45:00 PM, [address] [place] [address], [address], Provider Name:Janett fried, 12/29/2024 01:45:00 PM, [address] [place] [address], [address], Progress Notes * Wang VALLEJOOB: 3 (54 yo F)Acc No.[id number]:08/18/2024 PROGRESS NOTES Patient:Josh LOPEZ Provider:?Janett Taylor DPM :1970???Age:53 Y???Sex:Female D ate:08/18/2024 Address:[address] [place], [place] [address] Pcp:Bethanie Wong Subjective: * Chief Complaints: * ??? * Medical History:? Objective: * Vitals:? Assessment: Plan: * Treatment: * Images: * The named appointment provid er may or may not be the originator of this progress note, and it is not deemed complete until electronically signed by the appointment provider. Sign off status: Pending * Provider:?Janett Taylor DPM Date:? Generated for Lisha shipley/Garry/Lastitting on:?11/13/2024 08:03 AM EDT
--- NOTE | 2024-11-13 08:12 | ECG_ITS ---
Test Reason : Z01.818 Blood Pressure : */* mmHG Vent. Rate : 59 BPM Atrial Rate : 59 BPM P-R Int : 148 ms QRS Dur : 86 ms QT Int : 414 ms P-R-T Axes : 47 25 35 degrees QTcB Int : 409 ms Sinus bradycardia with sinus arrhythmia Otherwise normal ECG When compared with ECG of 06-Jul-2024 07:58, No significant change was found Referred By: Bethanie Wong Electronically Signed By: Akira Jauregui
[2024-11-13 08:18] LABS: MANUAL DIFF FLAG NO
[2024-11-13 08:47] LABS: Basophils Absolute Auto 0.1 X10*3/uL (0.0-0.2); Eosinophils Absolute Auto 0.3 X10*3/uL (0.0-0.4); Eosinophils Percent Auto 4.9 % (0-4); Hematocrit 42.6 % (37.0-47.0); Hemoglobin 13.8 g/dl (12.0-16.0); Imm Gran Abs Auto 0.01 X10*3/uL (0.00-0.03); Imm Gran Pct Auto 0.2 % (0.0-0.4); Lymphocytes Absolute Auto 1.9 X10*3/uL (1.2-4.9); Lymphocytes Percent Auto 31.4 % (20-40); Mean Corpuscular HGB Conc 32.4 g/dl (31.0-35.0); Mean Corpuscular Volume 86.6 fL (80.0-98.0); Mean Platelet Volume 11.1 fL (9.4-12.3); Monocytes Absolute Auto 0.6 X10*3/uL (0.1-1.2); Monocytes Percent Auto 9.7 % (2-11); Neutrophils Absolute Auto 3.1 x10*3/uL (2.0-8.3); Neutrophils Percent Auto 52.8 % (45-73); Platelet Count 274 X10*3/uL (160-400); Red Blood Count 4.92 X10*6/uL (4.20-5.50); Red Cell Distribution Width 13.3 % (11.0-16.0)
[2024-11-13 08:55] LABS: Estimated Average Glucose 120 mg/dL; Hemoglobin A1C 142.3299 umol/L; Hemoglobin A1c % 5.8 % (<6.0); Total Hemoglobin (HGBA1C) 3602.3646 umol/L
[2024-11-13 09:49] LABS: Alanine Aminotransferase 40 U/L (0-31); Albumin Level 4.4 g/dL (3.5-5.0); Alkaline Phosphatase 112 U/L (39-117); Anion Gap 13 (12-20); Aspartate Amino Transferase 26 U/L (5-31); Bilirubin Total 0.4 mg/dL (0.0-1.0); Blood Urea Nitrogen 13 mg/dL (9-16); Calcium 9.6 mg/dL (8.4-10.2); Carbon Dioxide 23 mmol/L (22-29); Chloride 111 mmol/L (96-108); Estimated Glomerular Filt Rate 59; Glucose Random 107 mg/dL (60-115); Sodium 143 mmol/L (135-145); Total Protein 7.5 g/dL (6.5-8.0)
== END 2024-11-13 08:01 | disposition home or self-care (01) ==
LOC: HO.LAB 08:00
DX: Z01.818 Encounter for other preprocedural examination (principal); Z13.1 Encounter for screening for diabetes mellitus
CPT/HCPCS: 36415; 80053; 83036; 85025; 93005

== ENCOUNTER → 2024-11-13 08:12 | Outpatient (BNV) | payer BC, SELFPAY | PROVIDERS: Visit Provider Internal Medicine Cardiovascular Disease | DX: I49.9 Cardiac arrhythmia, unspecified (principal); R00.1 Bradycardia, unspecified | CPT/HCPCS: 93010 ==

== ENCOUNTER 2024-11-13 09:11 | Outpatient (AMB) | payer BC, SELFPAY ==
--- NOTE | 2024-11-13 09:16 | A.OFFPC_ITS ---
Vital Signs 11/13/24 09:17 Height 5 ft 7 in Weight 236 lb 4 oz BMI 37.0 BP 144/84 H Blood Pressure Location Lt brachial Position Sitting Pulse 83 Pulse Source Pulse Oximeter Temp 97.3 F Temp Source Temporal Artery Scan Pulse Oximetry (%) 98 Oxygen Delivery Method Room Air Intake Visit Reasons: Pre-Op 12/02/24 -Right Foot Intake Note: Patient is here for a Pre-op for Right foot scheduled with [facility] Dr Taylor on 12/02/24. Ladder Operator Required: No Systems Analysis Manager: Not Required per policy Accompanied by: Self / Same As Patient Allergies peanut Allergy (Unknown, Verified 11/13/24 09:39) Unknown shrimp Allergy (Unknown, Verified 11/13/24 09:39) Unknown Medication List - Last Reconciled 11/13/24 by Bethanie Wong PA-C buspirone 5 mg PO BID cetirizine (Zyrtec) 10 mg PO DAILY PRN hydroxyzine HCl 25 mg PO BEDTIME lisinopril 10 mg PO DAILY lorazepam 1 mg PO TID PRN multivitamin 1 tab PO DAILY Tobacco use date assessed: 11/13/24 Dental Screening Dental Screen Date: 08/19/24 HPI Pre-Op 12/02/24 -Right Foot HPI Details 54-year-old female with past medical his tory of hypertension, anxiety, hyperlipidemia, hepatic steatosis last seen 09/2024 coming in for pre op.? Patient is scheduled to have neuroma excision of the right foot 12/02/2024 under general anesthesia. hypertension: elevated today in the office and at home plan to increase Lisinopril to 20mg hepatic steatosis: Liver tests WNL No history of CA, CVA, CHF, DM and patient has had anesthesia and surgery in the past without complications. Patient reporting heart racing sensation correlated with normal heart rate most recent EKGs within normal limits. [facility] Medical History Hyperlipidemia Fatty liver Carpal tunnel syndrome, bilateral Surgical History Hx of wisdom tooth extraction Hx of reduction mammoplasty Family History Father CVD (cardiovascular disease) S/P triple vessel bypass Mother Cancer Bladder cancer Sister Thyroid nodule Paternal Grandmother Stroke Social History Housing: House Alcohol intake: current Alcohol intake frequency: holidays/special occasions only Patient Tobacco Use Status: Former Tobacco user Tobacco use type: Cigarette e-Cigarette/Vaping Use: Never Used Second Hand Smoke Exposure: Yes service: No Current occupational status: employed Cognitive needs: No Hearing needs: No Vision needs: Yes (glasses) Questionnaire Thrive Questionnaire Date Thrive assessed: 10/19/24 I am a: Patient What is your living situation today?: I have a steady place to live Within the past 12 months, did the food you bought not last and you didn't have the money to get more?: Never true Within the past 12 months, did you worry whether your food would run out before you got money to buy more?: Never true Do you have trouble paying for medicines?: No Do you have trouble getting transportation to medical appointments?: No Do you have trouble paying your heating and electricity bill?: No Do you have trouble taking care of your child, family member or friend?: No Do you have trouble with day-to-day activities such as bathing, preparing meals, shopping, managing finances, etc.?: No Are you currently unemployed and looking for a job?: No Are you interested in more education?: No Please select the resources that you would like help with: None Currently or been in a relationship where the following occur: No concerns reported THRIVE Score: 0 SATHISH-7 AMB Questionnaire SATHISH-7 Date SATHISH - 7 assessed: 08/19/24 Source: Developed by Drs. James Malik, Gregoria San, George Baeza and colleagues, with an educational mario from [employer]. Review of Systems Const Denies body aches, Denies chills, Denies fever(s), Denies headache(s) and Denies poor appetite Eyes Reports no additional complaints ENT Denies dysphagia, Denies dizziness, Denies headache(s) and Denies odynophagia Card Details: heart pounding sensation occasionally Denies chest pain, Denies syncope, Denies edema, Denies irregular heart rhythm, Denies lightheadedness and Denies dyspnea Resp Denies cough and Denies dyspnea GI Denies abdominal pain, Denies constipation, Denies dysphagia, Denies diarrhea, Denies nausea, Denies odynophagia and Denies vomiting Reports no additional complaints Musc Reports no additional complaints and Denies abnormal gait Skin/Breast Reports system reviewed and no additional complaints, except as documented Neuro Denies abnormal gait, Denies dizziness, Denies syncope and Denies headache(s) Psych Reports no additional complaints Physical exam (Primary Care) Vital Signs: Last Vital Signs Temp 97.3 F 11/13/24 09:17 Pulse 83 11/13/24 09:17 BP 144/84 H 11/13/24 09:17 Pulse Ox 98 11/13/24 09:17 Oxygen Delivery Method Room Air 11/13/24 09:17 BMI result Body Mass Index 37.0 Tobacco/Smoking Status: Tobacco use Status Tobacco use date assessed 11/13/24 11/13/24 09:17 Patient Tobacco Use Status Former Tobacco user 11/13/24 09:17 Tobacco use type Cigarette 11/13/24 09:17 e-Cigarette/Vaping Use Never Used 11/13/24 09:17 Thrive Assessment: Date of Thrive Assessment Date Thrive assessed 10/19/24 11/13/24 09:17 Currently or been in a relationship where the following occur: No concerns reported Const General: cooperative, healthy appearing, comfortable and no acute distress Orientation/consciousness: patient oriented x3 HENMT Head: Yes normocephalic Ears: hearing grossly normal bilaterally General nose exam: Normal external nose present Eyes General: appearance normal, both eyes and all related structures Conjunctivae: conjunctivae normal Neck Neck: Yes full ROM and Yes no lymphadenopathy Resp Effort & Inspection: normal respiratory effort Auscultation: clear to auscultation bilaterally, no crackles, no rales, no rhonchi and no wheezes Cardio Rate: regular rate Rhythm: regular rhythm Skin General skin exam: no rashes or lesions noted Neuro General: patient oriented x3 Gait exam (Neuro): Normal gait present Extrem General: Yes normal to inspection, Yes full ROM and No edema Psych Affect: normal affect Attitude: cooperative Insight: Good insight present (Psych) Judgement: Good judgement present (Psych) Coding Level of Care Code Est Pt Level 3 (03785) Diagnoses Pre-op evaluation Z01.818 Hypertension I10 Anxiety F41.9 Assessment & Plan Assessment & Plan (1) Pre-op evaluation: Code(s): Z01.818 - Encounter for other preprocedural examination Category: Medical Plan: Regarding preop clearance, the patient is at moderate risk for proposed surgery due to history of elevated blood pressure. Reviewed with the patient that no surgery is completely free of risk and that this examination is to assist the surgeon in reviewing informed consent. I did discuss with the patient if her blood pressure is elevated on the day of the procedure the procedure may be held with the surgeon's discretion. Avoid the use of NSAIDs 1 week prior to surgery. Patient may take all other medications as prescribed up until the morning of the procedure and should take lisinopril in the morning of. EKG and blood work evaluated . No further workup needed at this time and may proceed with the contemplated procedure. Thank you very much for letting me participate in the care of this patient (2) Hypertension: Code(s): I10 - Essential (primary) hypertension Category: Medical Plan: Log was brought with blood pressures and show elevated blood pressures plan to increase lisinopril to 20 mg. Avoid salt intake and encourage healthy diet and regular exercise. (3) Anxiety: Code(s): F41.9 - Anxiety disorder, unspecified Category: Medical Plan: Patient having heart pounding sensation after recent increase of BuSpar which was decreased to 5 mg twice daily. At this time plan to discontinue BuSpar altogether and start on fluoxetine daily for anxiety management. Patient may use hydroxyzine nightly for anxiety and insomnia as well. Patient advised to continue to monitor symptoms and reviewed with patient red flag symptoms and when to present for re-evaluation. Plan This note was constructed using voice recognition software. While every effort has been made to ensure accuracy and biofuels product manager, still areas may have been included sometimes these areas may affect the content or meeting of the given symptoms. Total time spent caring for the patient today was 30 minutes. This includes time spent before the visit reviewing the chart, time spent during the visit, and time spent after the visit and documentation. Orders: Orders Lipid Panel Today E78.00 - Pure hypercholesterolemia, unspecified Medications: New fluoxetine 10 mg PO DAILY 30 caps 1RF lisinopril 20 mg PO DAILY 30 tabs 1RF Refilled hydroxyzine HCl 25 mg PO BEDTIME 30 tabs 1RF Discontinued lisinopril Discontinued Reason: Patient no longer taking 10 mg PO DAILY 30 tabs 1RF buspirone Discontinued Reason: Patient no longer taking 5 mg PO BID 60 tabs 0RF
[2024-11-13 09:17] VITALS: BP 144/84; PULSE 83; TEMP 36.3; O2SAT 98; BMI 37.0
== END 2024-11-13 10:40 | disposition home or self-care (01) ==
LOC: HO.HMCH 09:12
DX: Z01.818 Encounter for other preprocedural examination (principal); I10 Essential (primary) hypertension; F41.9 Anxiety disorder, unspecified

== ENCOUNTER 2024-11-25 08:53 | Outpatient (AMB) | payer BC, SELFPAY ==
--- NOTE | 2024-11-25 09:00 | A.OFFVIS_ITS ---
VS Expanded 11/25/24 09:06 Height 5 ft 7 in Weight 237 lb 7.005 oz BMI 37.2 Intake Visit Reasons: Fatty Liver, Obesity Allergies peanut Allergy (Unknown, Verified 11/13/24 09:39) Unknown shrimp Allergy (Unknown, Verified 11/13/24 09:39) Unknown Nutrition Presentation Details: Pt presents for MNT f/u for hepatic steatosis Pt reports working on including fiber rich foods , switching to whole grains. Starting to meal prep, has questions regarding macronutrients BS Monitoring Most Recent Diabetes Results: Creatinine 0.99 mg/dL (0.5-1.4) 11/13/24 Blood Urea Nitrogen 13 mg/dL (9-16) 11/13/24 Sodium 143 mmol/L (135-145) 11/13/24 Potassium 4.0 mmol/L (3.3-5.1) 11/13/24 Chloride 111 mmol/L (96-108) H 11/13/24 Carbon Dioxide 23 mmol/L (22-29) 11/13/24 Calcium 9.6 mg/dL (8.4-10.2) 11/13/24 AST 26 U/L (5-31) 11/13/24 ALT 40 U/L (0-31) H 11/13/24 Total Protein 7.5 g/dL (6.5-8.0) 11/13/24 Albumin 4.4 g/dL (3.5-5.0) 11/13/24 [facility] Medical History Hyperlipidemia Fatty liver Carpal tunnel syndrome, bilateral Surgical History Hx of wisdom tooth extraction Hx of reduction mammoplasty Family History Father CVD (cardiovascular disease) S/P triple vessel bypass Mother Cancer Bladder cancer Sister Thyroid nodule Paternal Grandmother Stroke Social History Housing: House Alcohol intake: current Alcohol intake frequency: holidays/special occasions only Patient Tobacco Use Status: Former Tobacco user Tobacco use type: Cigarette e-Cigarette/Vaping Use: Never Used Second Hand Smoke Exposure: Yes service: No Current occupational status: employed Cognitive needs: No Hearing needs: No Vision needs: Yes (glasses) Assessment & Plan Assessment & Plan (1) Hepatic steatosis: Code(s): K76.0 - Fatty (change of) liver, not elsewhere classified Category: Medical Plan: Wt: 109 Kg ( 10/16 ), 108 kg (12/16) Est kcal needs as per MSJ: 2100 (40% carb, 30% protein/fat) Est fluid needs as per 25-30 ml/d: 3300 Est prot per day as per 1 g/kg bw: 109 Recommend fiber intake : 8-10 g per day and gradually increase to 25-28 g per day for women and 35-38 g for men or as tolerated Recommend sodium intake per day : less than 2000 mg Educated patient on: ( R = reviewed V = verbalizes understanding N/R = needs review N/A = not applicable * Food sources of carbohydrate, adequate serving sizes and its role in various health conditions: R * Differences between complex carbohydrates a simple carbohydrates, role of fiber in diet: R * Lean protein sources of foods: R * Differences between types of fats and role in diet (mono on saturated fat fatty acids, saturated fatty acids, trans fats): R V * Food sources of sodium in salt and healthy modifications for heart health in kidney health: R * Vitamins and minerals: R V N/R * Healthy plate method concept: R V * Physical activity: Benefits a precaution: R V N/R * Patient Instructions: Continue working on choosing lean protein foods (poultry, lean beef as example) and low fat cooking methods (bake, steam, reduce amount of fats added to the foods as discussed) Coding Level of Care Code Nutr Indiv Subseq (14937) Diagnoses Hepatic steatosis K76.0 Time Spent (min) 30
[2024-11-25 09:06] VITALS: BMI 37.2
--- OUTSIDE RECORDS SUMMARY | 2024-11-25 09:16 | XMS_ITS ---
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 Name Role Phone Bethanie Wong Primary Care Provider UnavailJanett Mondragon [phone] Encounters Encounter Location Date Provider Diagnosis [address] [id number] 08/18/2024 Janett Taylor Plan Of Treatment Next Appt Details Provider Name:Janett fried, 12/02/2024 07:30:00 AM, [address] [place], [phone], Provider Name:Janett fried, 12/08/2024 01:45:00 PM, [address] [place] [address], [phone], Provider Name:Janett fried, 12/15/2024 01:45:00 PM, [address] [place] [address], [phone], Provider Name:Janett fried, 12/29/2024 01:45:00 PM, [address] [place] [address], [phone], Progress Notes * Wang VALLEJOOB: 3 (54 yo F)Acc No.[id number]:08/18/2024 PROGRESS NOTES Patient:?Josh VALLEJO Provider:?Janett Taylor DPM :1970???Age:53 Y???Sex:Female D ate:08/18/2024 Address:[address] [place], [place] [phone] Pcp:Bethanie Wong Subjective: * Chief Complaints: * ??? * Medical History:? Objective: * Vitals:? Assessment: Plan: * Treatment: * Images: * The named appointment provid er may or may not be the originator of this progress note, and it is not deemed complete until electronically signed by the appointment provider. Sign off status: Pending * Provider:?Janett Taylor DPM Date:? Generated for Lisha shipley/Garry/Lastitting on:?11/25/2024 09:16 AM EDT
== END 2024-11-25 09:38 | disposition home or self-care (01) ==
LOC: HO.ENCR 08:54
PROVIDERS: Visit Provider Dietitian, Registered
DX: K76.0 Fatty (change of) liver, not elsewhere classified (principal)

== ENCOUNTER → 2024-11-25 08:53 | Outpatient (BNVA) | payer BC, SELFPAY | PROVIDERS: Visit Provider Dietitian, Registered | DX: K76.0 Fatty (change of) liver, not elsewhere classified (principal); E66.9 Obesity, unspecified; Z68.37 Body mass index [BMI] 37.0-37.9, adult; Z71.3 Dietary counseling and surveillance | CPT/HCPCS: 97803 ==

== ENCOUNTER 2025-01-18 08:25 | Outpatient (REF) | payer BC, SELFPAY ==
[2025-01-30 23:33] LABS: Cortisol, Free 0.30 mcg/dL
== END 2025-01-18 08:26 | disposition home or self-care (01) ==
LOC: HO.LAB 08:25
DX: Z00.00 Encounter for general adult medical examination without abnormal findings (principal); F41.9 Anxiety disorder, unspecified; I10 Essential (primary) hypertension; E78.5 Hyperlipidemia, unspecified; E66.9 Obesity, unspecified; Z68.37 Body mass index [BMI] 37.0-37.9, adult; K76.0 Fatty (change of) liver, not elsewhere classified; D36.10 Benign neoplasm of peripheral nerves and autonomic nervous system, unspecified; G47.00 Insomnia, unspecified; K44.9 Diaphragmatic hernia without obstruction or gangrene; Z13.31 Encounter for screening for depression
CPT/HCPCS: 36415; 82530; 96127

== ENCOUNTER 2025-01-18 08:25 | Outpatient (AMB) | payer BC, SELFPAY ==
--- OUTSIDE RECORDS SUMMARY | 2023-08-02 05:00 | XMS_ITS ---
Author Organization [facility] Address [address] [place] [id number] Care Team Providers Care Foster Care Worker Name Role Phone Gianni Poe MD Primary Care Provider Jaems Morales [phone] REASON FOR VISIT screening Problems Problem Type SNOMED Code ICD Code Onset Dates Problem Status W/U Status Risk Notes Problem Diverticular disease of colon ([id number]) Diverticulosis of large intestine without perforation or abscess without bleeding (K57.30) Active confirmed Encounters Encounter Location Date Provider Diagnosis [facility] [place] [address] [place] [id number] [place]/02/2023 James Yang Encounter for scre ening colonoscopy Z12.11 ; Diverticulosis of large intestine without perforation or abscess without bleeding K57.30 and Other hemorrhoids K64.8 Assessments Encounter Date Diagnosis (ICD Code) Assessment Notes Treatment Notes Treatment Clinical Notes Section Notes 08/02/2023 Encounter for screening colonoscopy (ICD-10 - Z12.11) 08/02/2023 Diverticulosis of large intestine without perforation or abscess without bleeding (ICD-10 - K57.30) 08/02/2023 Other hemorrhoids (ICD-10 - K64.8) Plan Of Treatment No Information Progress Notes * IRIS VALLEJO ANNDOB:[birth year] (54 yo F)Acc No.[id number]:08/02/2023 COLON WITH MAC Patient: Kathrin IRIS SORENSEN Provider: Claude Yang MD :1970 A ge:52 Y S ex:Female Date:08/02/2023 Address:[address] [place], [place] [id number] Pcp:Gianni Poe MD Subjective: * Chief Complaints: * 1 . Screening. * Medical History: Objective: * Vitals: Assessment: * Assessment: 1. E ncounter for screening colonoscopy - Z12.11 (Primary) 2 . D iverticulosis of large intestine without perforation or abscess without bleeding - K57.30 3 .?Other hemorrhoids - K64.8 Plan: * Treatment: * Procedure Codes: 4 5378 DIAGNOSTIC COLONOSCOPY, Modifiers: 33 * * The named appointment provid er may or may not be the originator of this progress note, and it is not deemed complete until electronically signed by the appointment provider. Sign off status: Pending * Provider: Claude Yang MD Date: 0 08/02/2023 Generated for Lisha shipley/Garry/Lastitting on: 0 01/18/2025 08:37 AM EDT
--- NOTE | 2025-01-18 08:29 | MHC.PC.OV ---
Vital Signs 01/18/25 08:30 Height 5 ft 7 in Weight 240 lb BMI 37.6 BP 132/84 Blood Pressure Location Lt brachial Position Sitting Pulse 72 Pulse Source Pulse Oximeter Temp 97.1 F Temp Source Temporal Artery Scan Pulse Oximetry (%) 98 Oxygen Delivery Method Room Air Intake Visit Reasons: Annual exam Intake Note: Patient is here today for a physical. Tube Worker Required: No Machine Stoppage Frequency Checker: Not Required per policy Accompanied by: Self / Same As Patient Allergies peanut Allergy (Unknown, Verified 01/18/25 08:48) Unknown shrimp Allergy (Unknown, Verified 01/18/25 08:48) Unknown Medication List - Last Reconciled 01/18/25 by Bethanie Wong PA-C cetirizine (Zyrtec) 10 mg PO DAILY PRN gabapentin 300 mg PO TID hydroxyzine HCl 25 mg PO BEDTIME ibuprofen 800 mg PO TID lisinopril 20 mg PO DAILY lorazepam 1 mg PO TID PRN multivitamin 1 tab PO DAILY Tobacco use date assessed: 01/18/25 Dental Screening Dental Screen Date: 08/19/24 HPI Annual exam HPI Details 54-year-old female with past medical history of hypertension, anxiety, hyperlipidemia, hepatic steatosis last seen 10/2024 coming in for annual exam. The patient recently underwent foot surgery and reports improvement, with the ability to wear a shoe and drive. She attends physical therapy twice a week due to stiffness in her toes. The patient experiences discomfort at night, attributing it to menopause, with symptoms including stomach unease. The patient experiences symptoms consistent with acid reflux, exacerbated by late meals and possibly linked to a hiatal hernia. The patient is working with a airconditioning drafting officer to manage her diet due to a diagnosis of fatty liver. Mammogram: completed 10/2024 Colonoscopy: completed 07/2023 Pap smears: seeing final cigar and box examiner on eye doctor: [facility] Medical History Hyperlipidemia Fatty liver Carpal tunnel syndrome, bilateral Surgical History History of foot surgery Hx of wisdom tooth extraction Hx of reduction mammoplasty Family History Father CVD (cardiovascular disease) S/P triple vessel bypass Mother Cancer Bladder cancer Sister Thyroid nodule Paternal Grandmother Stroke Social History Housing: House Alcohol intake: current Alcohol intake frequency: holidays/special occasions only Patient Tobacco Use Status: Former Tobacco user Tobacco use type: Cigarette e-Cigarette/Vaping Use: Never Used Second Hand Smoke Exposure: Yes service: No Current occupational status: employed Cognitive needs: No Hearing needs: No Vision needs: Yes (glasses) Female Reproductive History Menstrual control method: none Questionnaire PHQ-9 Over the last 2 weeks, how often have you been bothered by any of the following problems? 1. Little interest or pleasure in doing things: not at all 2. Feeling down, depressed, or hopeless: not at all 3. Trouble falling or staying asleep, or sleeping too much: several days 4. Feeling tired or having little energy: not at all 5. Poor appetite or overeating: not at all 6. Feeling bad about yourself - or that you are a failure or have let yourself or your family down: not at all 7. Trouble concentrating on things, such as reading the newspaper or watching television: not at all 8. Moving or speaking so slowly that other people could have noticed. Or the opposite - being so fidgety or restless that you have been moving around a lot more than usual: not at all 9. Thoughts that you would be better off or of hurting yourself in some way: not at all Total score: 1 Depression Screening Interpretation: Negative Depression Screening Done: Yes 30761 - PHQ-9 Billing: Yes Source: Developed by Drs. James Malik, Gregoria San, George Baeza and colleagues, with an educational mario from [employer]. Thrive Questionnaire Date Thrive assessed: 10/19/24 I am a: Patient What is your living situation today?: I have a steady place to live Within the past 12 months, did the food you bought not last and you didn't have the money to get more?: Never true Within the past 12 months, did you worry whether your food would run out before you got money to buy more?: Never true Do you have trouble paying for medicines?: No Do you have trouble getting transportation to medical appointments?: No Do you have trouble paying your heating and electricity bill?: No Do you have trouble taking care of your child, family member or friend?: No Do you have trouble with day-to-day activities such as bathing, preparing meals, shopping, managing finances, etc.?: No Are you currently unemployed and looking for a job?: No Are you interested in more education?: No Please select the resources that you would like help with: None Currently or been in a relationship where the following occur: No concerns reported THRIVE Score: 0 SATHISH-7 AMB Questionnaire SATHISH-7 Date SATHISH - 7 assessed: 08/19/24 Feeling nervous, anxious, or on edge: 1 = Several days Not being able to stop or control worryin = Several days Worrying too much about different things: 0 = Not at all Trouble relaxin = Several days Being so restless that it is hard to sit still: 0 = Not at all Becoming easily annoyed or irritable: 0 = Not at all Feeling afraid as if something awful might happen: 1 = Several days Total SATHISH-7 score (0-4 normal; 5-9 mild; 10-14 moderate; 15-21 severe): 4 Source: Developed by Drs. James Malik, Gregoria San, George Baeza and colleagues, with an educational mario from [employer]. SATHISH-7 Assessment Billing SATHISH-7 Assessment Tool: SATHISH-7 Assessment 03197 Review of Systems Const Denies body aches, Denies fatigue, Denies fever(s), Denies frequent falls, Denies headache(s) and Denies weakness Eyes Reports no additional complaints and Denies change in vision ENT Denies dysphagia, Denies dizziness, Denies facial pain, Denies headache(s), Denies nasal congestion and Denies odynophagia Card Denies chest pain, Denies syncope, Denies irregular heart rhythm, Denies leg edema, Denies lightheadedness and Denies dyspnea Resp Denies cough and Denies dyspnea GI Denies abdominal pain, Denies constipation, Denies dysphagia, Denies dyspepsia, Denies diarrhea, Denies nausea, Denies odynophagia and Denies vomiting Denies urinary frequency, Denies dysuria, Denies urinary hesitancy and Denies urinary urgency Musc Denies back pain and Denies myalgias Skin/Breast Reports system reviewed and no additional complaints, except as documented Neuro Denies dizziness, Denies syncope, Denies frequent falls, Denies headache(s) and Denies weakness Psych Reports no additional complaints Endo Denies fatigue Physical exam (Primary Care) Vital Signs: Last Vital Signs Temp 97.1 F 01/18/25 08:30 Pulse 72 01/18/25 08:30 BP 132/84 01/18/25 08:30 Pulse Ox 98 01/18/25 08:30 Oxygen Delivery Method Room Air 01/18/25 08:30 BMI result Body Mass Index 37.6 Tobacco/Smoking Status: Tobacco use Status Tobacco use date assessed 01/18/25 01/18/25 08:37 Patient Tobacco Use Status Former Tobacco user 01/18/25 08:37 Tobacco use type Cigarette 01/18/25 08:37 e-Cigarette/Vaping Use Never Used 01/18/25 08:37 PHQ-9: PHQ-9 Score PHQ-9: Total score 1 01/18/25 12:22 Depression Screening Interpretation: Negative Thrive Assessment: Date of Thrive Assessment Date Thrive assessed 10/19/24 01/18/25 08:37 Currently or been in a relationship where the following occur: No concerns reported Const General: cooperative, healthy appearing, comfortable and no acute distress Orientation/consciousness: patient oriented x3 HENMT Head: Yes normocephalic Ears: hearing grossly normal bilaterally, external ears normal, TM's normal bilaterally and EAC's normal General nose exam: Normal external nose present Face and sinus: Yes normal facial exam and Yes sinuses nontender Mouth: Normal oral and palatal mucosa present and tongue normal Throat: Yes posterior oropharynx normal Eyes General: appearance normal, both eyes and all related structures Conjunctivae: conjunctivae normal Pupils: Equal, round and reactive pupils present EOM: EOMs intact bilaterally and No Nystagmus present Neck Neck: Yes normal visual inspection, Yes full ROM and Yes no lymphadenopathy Chest Chest palpation & inspection: normal inspection of the chest Resp Effort & Inspection: normal respiratory effort Auscultation: clear to auscultation bilaterally, no crackles, no rales, no rhonchi, no wheezes and breath sounds present Cardio Rate: regular rate Rhythm: regular rhythm Peripheral pulses: radial pulses present and dorsalis pedis present GI Inspection: Yes normal to inspection and No Abdominal wall edema Palpation (GI): Soft to palpation, not firm and nontender Auscultation: normal bowel sounds Rectal Exam - Female: deferred General: Yes no CVA tenderness Back/Spine/Pelvis Back: no CVA tenderness Skin General skin exam: no rashes or lesions noted Neuro General: patient oriented x3 Cranial nerves: Yes Equal, round and reactive pupils present, Yes Midline tongue present, Yes Ability to bilaterally elevate shoulders present and No Nystagmus present Gait exam (Neuro): Normal gait present Extrem General: Yes normal to inspection, Yes full ROM, No no pedal edema and No edema Psych Speech and movement: Normal speech and movement present Affect: normal affect Insight: Good insight present (Psych) Judgement: Good judgement present (Psych) Coding Level of Care Code Est Pt Prev Care 40-64y(27248) Diagnoses Physical exam Z00.00 Anxiety F41.9 Hypertension I10 Hyperlipidemia E78.5 Obesity E66.9 Hepatic steatosis K76.0 Neuroma D36.10 Insomnia G47.00 Hiatal hernia K44.9 Additional Codes SATHISH-7 Assessment Billing - SATHISH-7 Assessment Tool: SATHISH-7 Assessment 16885 ([id number]) PHQ-9 - 10173 - PHQ-9 Billing: Yes ([id number]) Assessment & Plan Assessment & Plan (1) Physical exam: Code(s): Z00.00 - Encounter for general adult medical examination without abnormal findings Category: Medical Plan: Patient is up-to-date on all recommended routine screenings and vaccinations for her age. Blood work was up-to-date and reviewed with the patient today. I did remind her about the additional blood work that was not completed prior to her visit. Healthy diet and regular exercise is encouraged. (2) Anxiety: Code(s): F41.9 - Anxiety disorder, unspecified Category: Medical (3) Hypertension: Code(s): I10 - Essential (primary) hypertension Category: Medical Plan: Continue on current blood pressure medication. Avoid salt intake and encourage healthy diet and regular exercise. (4) Hyperlipidemia: Code(s): E78.5 - Hyperlipidemia, unspecified Category: Medical Plan: Avoid foods that are high in cholesterol such as red meat, fried foods, eggs and baked goods. Triglyceride goal of less than 150 and LDL goal of less than 100. Reminded patient about blood work (5) Obesity: Code(s): E66.9 - Obesity, unspecified Category: Medical Plan: Healthy diet and regular exercise is encouraged. (6) Hepatic steatosis: Code(s): K76.0 - Fatty (change of) liver, not elsewhere classified Category: Medical Plan: Healthy diet and regular exercise is encouraged. (7) Neuroma: Code(s): D36.10 - Benign neoplasm of peripheral nerves and autonomic nervous system, unspecified Category: Medical Plan: Recently underwent surgical excision and is currently working with physical therapy for foot and toe stiffness. (8) Insomnia: Code(s): G47.00 - Insomnia, unspecified Category: Medical Plan: Patient complaining of insomnia which she attributes to menopausal symptoms. Patient may continue with hydroxyzine as needed. I did offer a sleep study test which was declined today. (9) Hiatal hernia: Code(s): K44.9 - Diaphragmatic hernia without obstruction or gangrene Category: Medical Plan: Avoid trigger foods such as citrus, tomato products, soda, caffeine, spicy foods and other foods that may be irritating to your stomach. Avoid laying flat 3-4 hours after eating and elevate the head of the bed 30 degrees to prevent acid from moving into the esophagus. The majority of her nighttime symptoms seem to be related to acid reflux possibly caused by the hiatal hernia. Patient is given informational packet about GERD guidelines today. Plan The patient will continue with physical therapy twice a week to address post-surgical stiffness in her toes. She is advised to modify her diet to manage acid reflux symptoms, particularly by avoiding late meals and foods that exacerbate symptoms. The patient is encouraged to engage in weight-bearing exercises such as walking to improve bone health and manage weight, which may also help alleviate menopausal symptoms. Blood pressure will continue to be monitored, and lisinopril will be refilled to manage hypertension. The patient is advised to work with her airconditioning drafting officer to manage her fatty liver and to monitor her cortisol levels due to stress concerns. She is informed about the potential impact of a hiatal hernia on her acid reflux and is provided with information on lifestyle modifications to manage these symptoms. Follow-up appointments are scheduled for six months and a year to monitor her progress and reassess her health status. This note was constructed using voice recognition software. While every effort has been made to ensure accuracy and novelty twister tender, still areas may have been included sometimes these areas may affect the content or meeting of the given symptoms. Total time spent caring for the patient today was 30 minutes. This includes time spent before the visit reviewing the chart, time spent during the visit, and time spent after the visit and documentation. Patient was informed and verbally consented to the use of an ambient scribe for clinic note documentation during this visit. Orders: Orders Cortisol, Free Today F41.9 - Anxiety disorder, unspecified Medications: Refilled lisinopril 20 mg PO DAILY 90 tabs 1RF hydroxyzine HCl 25 mg PO BEDTIME 90 tabs 1RF
[2025-01-18 08:30] VITALS: BP 132/84; PULSE 72; TEMP 36.2; O2SAT 98; BMI 37.6
--- OUTSIDE RECORDS SUMMARY | 2025-01-18 08:38 | XMS_ITS | Patient Health Record ---
Author Organization [facility] Kristel Haasley Address [address] [place] [address] Care Team Providers Care Supply And Distribution Manager Name Role Phone JudithBethanie Primary Care Provider Unavailab Janett Sommers Unavailable [phone] Skylar Reyna Unavailable [phone] Allergies Allergen (clinical drug ingredient) Drug/Non Drug Allergy documented on EMR Reaction Allergy Type Onset Date Status all nut allergy (uncoded) rash Allergy Active Shellfish (FN) Shellfish-derived Products sick to stomach Drug Allergy Active Reason For Referral Diagnosis 1 Interstitial myositi [...] Referring Provider Last Name Lui Referred Organization [facility] Referred Provider Skylar Reyna Referred Address [address],[place],[address], Referred Provider Specialty Podiatry Referral Priority Routine [...] First Name Gianni Referring Provider Last Name [facility] Referred [facility] Referred Provider Janett Taylor Referred Address [address] [place],[address],[place] Referred Provider Specialty Podiatry Referral Priority Routine Diagnosis 1 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) Diagnosis 2 Lesion of plantar ne rve, left lower limb (G57.62) Diagnosis 3 Lesion of plantar ne rve, right lower limb (G57.61) Diagnosis 4 Plantar fasciitis of left foot (M72.2) Diagnosis 5 Pain in right foot ( M79.671) Diagnosis 6 Pain in left foot (M 79.672) Diagnosis 7 Bursitis of left zunilda t (M77.52) Referring Provider First Name Keenan Referring Provider Last Name [facility] Referred Provider Janett Taylor Referred Address [address] [place],[address],[place] Referred Provider Specialty Podiatry Referral Priority Routine Medications Medication SIG (Take, Route, Frequency, Duration) Notes Start Date End Date Status Ibuprofen 800 MG 1 tablet with food or milk as needed Orally Three times a day as needed post op; Duration: 30 days 07/15/2024 Active Work Note . . . Patient can perform light work duties from home starting 12/09/24 12/08/2024 Active FLUoxetine HCl 10 MG Oral; Duration: 30 Days Not-Taking Neurontin 300 MG 1 capsule Orally 3 times a day as needed for post op pain; Duration: 30 days 07/15/2024 Active Multivitamin Active Blackey 3 Active Lisinopril 20 MG Oral; Duration: 30 Days Active ZyrTEC Allergy Activ e Diclofenac Sodium 50 MG 1 tablet as needed Orally Twice a day; Duration: 30 days Takes as needed 01/18/2023 Active hydrOXYzine HCl 25 MG Oral; Duration: 30 Days Active Feldene 20 MG 1 capsule with food Orally Once a day; Duration: 30 days 01/17/2023 Active Medrol jaya 4mg as directed orally as directed; Duration: 6 days 04/08/2023 Active Tylenol PM Extra Strength Active Physical Therapy . Right foot neuroma excision 12/02/24. Evaluate and treat, ROM right foot, strength training, progress out of boot and WB increase as tolerated, no restrictions .; Duration: 45 days 12/29/2024 Active Immunizations Vaccine Route Administration Date Status Comme nts Influenza Unknown 02/23/2024 Administered Social History Tobacco Use/Smoking Question Answer Notes Additional Findings: Tobacco Non-User Current no n-smoker Tobacco use other than smoking: Question Answer Notes Are you an other tobacco user? No AUDIT-C (Standard) Question Answer Notes Did you have a drink containing alcohol in the p ast year? 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 Resistant to previous conservative treatment Problem Plantar nerve lesion (267196333) Lesion of plantar nerve, left lower limb (G57.62) Active confirmed Problem Mononeuropathy of lower limb (731523318) Neuritis of right foot (G57.91) Active confirmed Problem Plantar fasciitis of left foot ([id number] 01) Plantar fasciitis of left foot (M72.2) Active confirmed Problem Interstitial myositis (12485325) 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) Active confirmed Vital Signs Blood pressure diastolic 80 mm Hg 12/29/2024 Height 5ft7in in 12/29/2024 Blood pressure systolic 130 mm Hg 12/29/2024 Weight 233 lbs 12/29/2024 BMI 36.49 kg/m2 12/29/2024 Encounters Encounter Location Date Provider Diagnosis [facility] ([facility]) [address] [place] [phone] 12/02/2024 Janett [facility] [address] [address] 02/10/2024 Skylar Black Plantar fasciitis of left foot M72.2 ; Lesion of plantar nerve, right lower limb G57.61 ; Pain in right foot M79.671 ; Calcaneal spur, left foot M77.32 ; Pain in left foot M79.672 ; Interstitial myositis of left foot M60.172 ; Bursitis of left foot M77.52 and Pain in right ankle and joints of right foot M25.[address] [address] 02/18/2024 Skylar Black Pain in left foot M79.672 ; Lesion of plantar nerve, right lower limb G57.61 and Bursitis of intermetatarsal bursa of left foot M77.[address] [address] 03/30/2024 Janett Perica Pain in right foot M79.671 and Lesion of plantar nerve, right lower limb G57.[address] [address] 07/15/2024 Janett Perica Pain in right foot M79.671 and Lesion of plantar nerve, right lower limb G57.[address] [address] 11/20/2024 Janett Perica Pain in right foot M79.671 and Lesion of plantar nerve, right lower limb G57.[address] [address] 12/08/2024 Janett Perica Postoperative visit Z48.89 and Lesion of plantar nerve, right lower limb G57.[address] [address] 12/15/2024 Janett Perica Postoperative visit Z48.89 and Lesion of plantar nerve, right lower limb G57.[address] [address] 12/29/2024 Janett Perica Postoperative visit Z48.89 ; Lesion of plantar nerve, right lower limb G57.61 ; Neuritis of right foot G57.91 ; Pain in right foot M79.671 and Local edema R60.0 [facility] [address] [address] 02/10/2024 Skylar Black [facility] [address] [address] 02/18/2024 Skylar Black [facility] [address] [address] 03/30/2024 Janett Perica [facility] [address] [address] 05/07/2024 Janett Perica [facility] [address] [address] 06/25/2024 Janett Perica [facility] [address] [address] 07/15/2024 Janett Perica [facility] [address] [address] 07/22/2024 Janett Perica [facility] [address] [address] 07/24/2024 Janett Perica [facility] [address] [address] 08/24/2024 Janett Perica [facility] [address] [address] 10/26/2024 Janett Perica [facility] [address] [address] 11/20/2024 Janett Perica [facility] [address] [address] 12/03/2024 Janett Magallanesa Assessments Encounter Date Diagnosis (ICD Code) Assessment Notes Treatment Notes Treatment Clinical Notes Section Notes 02/10/2024 Lesion of plantar nerve, right lower [...] nerve, right lower limb (ICD-10 - G57.61) 11/20/2024 Pain in right foot (ICD-10 - M79.671) 12/08/2024 Lesion of plantar nerve, right lower limb (ICD-10 - G57.61) 12/08/2024 Postoperative visit (ICD-10 - Z48.89) 12/15/2024 Postoperative visit (ICD-10 - Z48.89) 12/29/2024 Lesion of plantar nerve, right lower limb (ICD-10 - G57.61) 12/29/2024 Postoperative visit (ICD-10 - Z48.89) 12/29/2024 Neuritis of right foot (ICD-10 - G57.91) 12/15/2024 Lesion of plantar nerve, right lower limb (ICD-10 - G57.61) 11/20/2024 Lesion of plantar nerve, right lower limb (ICD-10 - G57.61) 03/30/2024 Lesion of plantar nerve, right lower limb (ICD-10 - G57.61) Resistant to previous conservative treatment 02/18/2024 Lesion of plantar nerve, right lower limb (ICD-10 - G57.61) Resistant to previous conservative treatment 02/18/2024 Bursitis of intermetatarsal bursa of left foot (ICD-10 - M77.52) 02/10/2024 Pain in right foot (ICD-10 - M79.671) 02/10/2024 Calcaneal spur, left foot (ICD-10 - M77.32) 12/29/2024 Pain in right foot (ICD-10 - M79.671) 12/29/2024 Local edema (ICD-10 - R60.0) 02/10/2024 Pain in left foot (ICD-10 - M79.672) 02/10/2024 Interstitial myositis of left foot (ICD-10 - M60.172) 02/10/2024 Bursitis of left foot (ICD-10 - M77.52) 02/10/2024 Pain in right ankle and joints of right foot (ICD-10 - M25.571) Plan Of Treatment Pending Test Test Name Order Date MRI : Foot, right 02/10/2024 X ray : Foot, right 3V 03/30/2024 04591, J0702- Neuroma/Injection 09/16/19 09109, J0702- Neuroma/Injection 10/28/19 96281, J0702- Neuroma/Injection 12/09/19 Next Appt Details Provider Name:Janett fried, 01/27/2025 01:45:00 PM, [address] [place] [address], [phone], Insurance Providers Payer Name Payer Address Payer Phone Subscriber Number Group Number Insured Name Patient Relationship to Insured Coverage Start Date Coverage End Date [facility] [address] [place] [address] [id number] Josh Mejia Self - patient is the insured Medical (General) History Medical History History ICD Code chicken pox bone implants/screws back, hip, knee pain Broken bones covid-19 Warts Surgical History Surgery Date(Month/Year) wisdom teeth 2004 breast reduction 2014 Colonoscopy 08/17 Excision of Neuroma Right 3rd Interspace 12/02/24
--- OUTSIDE RECORDS SUMMARY | 2025-01-18 08:38 | XMS_ITS | Patient Health Record ---
Author Organization [facility] Address [address] [place] [address] Care Team Providers Care Playground Official Name Role Phone Geetha Willoughby Unavailable [phone] Reason For Referral No Information Medications Medication SIG (Take, Route, Fr equency, Duration) Notes Start Date End Date Status Multivitamins 1 ORAL daily; Duration: -3 Nayan-MJ 4 Active ZyrTEC 10MG 1 ORAL daily; Duration: -3 Nayan-MJ 12/09/2012 Active Immunizations Vaccine Route Administration Date Status Comme nts Tdap Intramuscular 12/09/2012 Pending Problems Problem Type SNOMED Code ICD Code Onset Dates Problem Status W/U Status Risk Notes Problem Polycystic ovary syndrome (disorder) (347155833) Polycystic ovaries (256.4) Active confirmed Diag Problem Obesity (800449059) Obesity, unspecified (278.00) Active confirmed Major Problem Excessive and frequent menstruation (679176203) Excessive or frequent menstruation (626.2) Active confirmed Diag Problem Irregular menstrual cycle (00064189) Irregular menstrual cycle (626.4) Active confirmed Diag Problem Gynecological examination normal (132766032921169) Routine gynecological examination (V72.31) Active confirmed Diag Plan Of Treatment Pending Test Test Name Order Date MAMMOGRAM, SCREENING 08/30/2014 Insurance Providers Payer Name Payer Address Payer Phone Subscriber Number Group Number Insured Name Patient Relationship to Insured Coverage Start Date Coverage End Date [employer] [place] [address] [place] [address] [id number] EMMANUELLE VALLEJOSHAYWing Self - patient is the insured
== END 2025-01-18 09:17 | disposition home or self-care (01) ==
LOC: HO.HMCH 08:26
DX: Z00.00 Encounter for general adult medical examination without abnormal findings (principal); F41.9 Anxiety disorder, unspecified; E66.9 Obesity, unspecified; Z68.37 Body mass index [BMI] 37.0-37.9, adult; I10 Essential (primary) hypertension; E78.5 Hyperlipidemia, unspecified; K76.0 Fatty (change of) liver, not elsewhere classified; D36.10 Benign neoplasm of peripheral nerves and autonomic nervous system, unspecified; G47.00 Insomnia, unspecified; K44.9 Diaphragmatic hernia without obstruction or gangrene

== ENCOUNTER 2025-03-25 08:25 | Outpatient (AMB) | payer BC, SELFPAY ==
[2025-03-25 08:33] VITALS: BMI 38.0
--- NOTE | 2025-03-25 08:33 | MHC.AMNUTRGE ---
VS Expanded 03/25/25 08:33 Height 5 ft 7 in Weight 242 lb 8.136 oz BMI 38.0 Intake Visit Reasons: fatty liver Allergies peanut Allergy (Unknown, Verified 01/18/25 08:48) Unknown shrimp Allergy (Unknown, Verified 01/18/25 08:48) Unknown Nutrition Presentation Details: Pt presents for MNT f/u for obesity, hepatic steatosis Pt reports having undergone surgery and physical activity was limited . Pt reports she is resuming walking gradually , walking 20 min every day Requesting simplifying meal plan f ood frequency fish 0-1/wk Meal pattern B: premier protein or yogurt and granola L salad with protein dinner:Serbian muffin pizza or sweet potato and ground chicken , water BS Monitoring Most Recent Diabetes Results: Creatinine, (0.5-1.4) 0.99 mg/dL 11/13/24 BUN, (9-16) 13 mg/dL 11/13/24 Sodium, (135-145) 143 mmol/L 11/13/24 Potassium, (3.3-5.1) 4.0 mmol/L 11/13/24 Chloride, (96-108) 111 mmol/L H 11/13/24 Carbon Dioxide, (22-29) 23 mmol/L 11/13/24 Calcium, (8.4-10.2) 9.6 mg/dL 11/13/24 AST, (5-31) 26 U/L 11/13/24 ALT, (0-31) 40 U/L H 11/13/24 Total Protein, (6.5-8.0) 7.5 g/dL 11/13/24 Albumin, (3.5-5.0) 4.4 g/dL 11/13/24 [facility]LY [facility] Medical History Hyperlipidemia Fatty liver Carpal tunnel syndrome, bilateral Surgical History History of foot surgery Hx of wisdom tooth extraction Hx of reduction mammoplasty Family History Father CVD (cardiovascular disease) S/P triple vessel bypass Mother Cancer Bladder cancer Sister Thyroid nodule Paternal Grandmother Stroke Social History Housing: House Alcohol intake: current Alcohol intake frequency: holidays/special occasions only Patient Tobacco Use Status: Former Tobacco user Tobacco use type: Cigarette e-Cigarette/Vaping Use: Never Used Second Hand Smoke Exposure: Yes service: No Current occupational status: employed Cognitive needs: No Hearing needs: No Vision needs: Yes (glasses) Assessment & Plan Assessment & Plan (1) Hepatic steatosis: Code(s): K76.0 - Fatty (change of) liver, not elsewhere classified Category: Medical Plan: Wt: 109 Kg ( 10/16 ), 108 kg (12/16), 110 kg(04/17 (after surgery,lackof physical activity) Est kcal needs as per MSJ: 2100 (40% carb, 30% protein/fat) Est fluid needs as per 25-30 ml/d: 3300 Est prot per day as per 1 g/kg bw: 109 Recommend fiber intake : 8-10 g per day and gradually increase to 25-28 g per day for women and 35-38 g for men or as tolerated Recommend sodium intake per day : less than 2000 mg Educated patient on: ( R = reviewed V = verbalizes understanding N/R = needs review N/A = not applicable Food sources of carbohydrate, adequate serving sizes and its role in various health conditions: R Differences between complex carbohydrates a simple carbohydrates, role of fiber in diet: R Lean protein sources of foods: R Differences between types of fats and role in diet (mono on saturated fat fatty acids, saturated fatty acids, trans fats): R Food sources of sodium in salt and healthy modifications for heart health in kidney health: R Vitamins and minerals: R omega 3 sources of foods Healthy plate method concept: R V Physical activity: Benefits a precaution: R V N/R Patient Instructions: Work on choosing lower fat food options - see list of what is recommended and not recommend switch to whole grain foods (whole grain breads, pastas, flours, crackers , legumes Coding Level of Care Code Nutr Indiv Subseq (84342) Diagnoses Hepatic steatosis K76.0 Time Spent (min) 30
--- OUTSIDE RECORDS SUMMARY | 2025-03-25 08:44 | XMS_ITS | Patient Health Record ---
Author Organization [facility] Address [address] [place] [address] Care Team Providers Care Deicer Repairer Name Role Phone Geetha Willoughby Unavailable [phone] Reason For Referral No Information Medications Medication [...] Risk Notes Problem Polycystic ovary syndrome (disorder) (990507493) Polycystic ovaries (256.4) Active confirmed Diag Problem Obesity (517262106) Obesity, unspecified (278.00) Active confirmed Major Problem Excessive and frequent menstruation (084066843) Excessive or frequent menstruation (626.2) Active confirmed Diag Problem Irregular menstrual cycle (66013428) Irregular menstrual cycle (626.4) Active confirmed Diag Problem Gynecological examination normal (673605542774415) Routine gynecological examination (V72.31) Active confirmed Diag Plan Of Treatment Pending Test Test Name Order Date MAMMOGRAM, SCREENING 08/30/2014 Insurance Providers Payer Name Payer Address Payer Phone Subscriber Number Group Number Insured Name Patient Relationship to Insured Coverage Start Date Coverage End Date [employer] [place] [address] [place] [address] [id number] [id number] Self - patient is the insured
--- OUTSIDE RECORDS SUMMARY | 2025-03-25 08:44 | XMS_ITS | Patient Health Record ---
Author Organization [facility] Address [address] [place] [address] Care Team Providers Care Rubber Goods Tester Name Role Phone Lui RIVERA, Gianni Primary Care Provider James Morales [phone] Allergies Allergen (clinical drug ingredient) Drug/Non Drug Allergy documented on EMR Reaction Allergy Type Onset Date Status Shellfish (FN) Shellfish-derived Products Unknown Drug Allergy Active peanut allergenic extract Peanut (Diagnostic) Unknown Drug Allergy Active Reason For Referral No Information Medications Medication SIG (Take, Route, Fr equency, Duration) Notes Start Date End Date Status Multivitamin - 1 tablet Orally Once a day for 30 day(s) Active Sleep Aid Active Social History Tobacco Use: Social History Observation Description Date Details (start date - stop date) Former Smoker NA - NA Tobacco Use/Smoking Question Answer Notes Patient is a former smoker How long has it been since you last smoked? > 10 years Alcohol Screen Question Answer Notes Did you have a drink containing alcohol in the p ast year? No Points 0 Interpretation Negative Section Notes: Nonsmoker; no sig alcohol Problems Problem Type SNOMED Code ICD Code Onset Dates Problem Status W/U Status Risk Notes Problem 182863225 Colon cancer screening (Z12.11) Active confirmed Problem Diverticular disease of colon (704502105) Diverticulosis of large intestine without perforation or abscess without bleeding (K57.30) Active confirmed Problem 243544229512015 Preprocedural examination (Z01.818) Active confirmed Plan Of Treatment Future Test Test Name Order Date COLONOSCOPY 04/25/2023 Insurance Providers Payer Name Payer Address Payer Phone Subscriber Number Group Number Insured Name Patient Relationship to Insured Coverage Start Date Coverage End Date [facility] [employer] [address] [place] [address] [phone] [id number] IRIS VALLEJO Self - patient is the insured Medical (General) History Medical History History ICD Code Denies RI,DM,CVA,Lung disease,renal dise ase Told of fatty liver on a CT scan-LFT's n ormal in 10/2022 Surgical History Surgery Date(Month/Year) Breast reduction 2015 [place] teeth
--- OUTSIDE RECORDS SUMMARY | 2025-03-25 08:44 | XMS_ITS | Patient Health Record ---
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 Role Phone Bethanie Wong Primary Care Provider Unavailab Janett Sommers Unavailable [phone] Allergies Allergen (clinical drug ingredient) Drug/Non Drug [...] Referring Provider Last Name Lui Referred Organization [facility] [place] Referred Provider Janett Taylor Referred Address [address],[place],[address], Referred Provider Specialty Podiatry Referral Priority Routine [...] zunilda t (M77.52) Referring Provider First Name Maialessandra Referring Provider Last Name Referred [facility] Referred Provider Janett Taylor Referred Address [address] [place], [place],[address],[place] Referred Provider Specialty Podiatry Referral Priority Routine Medications Medication SIG (Take, Route, Frequency, Duration) Notes Start Date End Date Status Lisinopril 20 MG Oral; Duration: 30 Days Active hydrOXYzine HCl 25 MG Oral; Duration: 30 Days Active Diclofenac Sodium 50 MG 1 tablet as needed Orally Twice a day; Duration: 30 days Takes as needed 01/18/2023 Not-Taking Medrol jaya 4mg as directed orally as directed; Duration: 6 days 04/08/2023 Not-Taking Feldene 20 MG 1 capsule with food Orally Once a day; Duration: 30 days 01/17/2023 Not-Taking Work Note . . . Patient can perform light work duties from home starting 12/09/24 12/08/2024 Active Ibuprofen 800 MG 1 tablet with food or milk as needed Orally Three times a day as needed post op; Duration: 30 days 07/15/2024 Not-Taking Work Note . Patient can return to work on 03/01/25 and patient can wear comfortable shoes, no other restrictions Active Tylenol PM Extra Strength Active Neurontin 300 MG 1 capsule Orally Once a day as needed for post op pain; Duration: 30 days 07/15/2024 Active [place] 3 Active Physical Therapy . Right foot neuroma excision 12/02/24. Evaluate and treat, ROM right foot, strength training, progress out of boot and WB increase as tolerated, no restrictions .; Duration: 45 days 12/29/2024 Active Multivitamin Active ZyrTEC Allergy Activ e FLUoxetine HCl 10 MG Oral; Duration: 30 Days Not-Taking Immunizations Vaccine Route Administration Date Status Comme nts Influenza Unknown 02/23/2024 Administered Social History Tobacco Use: Social History Observation Description Date Details (start date - stop date) Never Smoker NA - NA Tobacco use other than smoking: Question Answer Notes Are you an other tobacco user? No Tobacco Control (Standard) Question Answer Notes Tobacco use: Nonsmoker Additional Findings: Tobacco non-user Current no nsmoker AUDIT-C (Standard) Question Answer Notes Did you have a drink contain ing alcohol in the past year? Yes How often did you have a dri nk containing alcohol in the past year? Monthly or less (1 point) How many drinks did you have on a typical day when you were drinking in the past year? 1 or 2 drinks (0 point) How often did you have six o r more drinks on one occasion in the past year? 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 Problem Plantar nerve lesion (644850591) Lesion of plantar nerve, left lower limb (G57.62) Active confirmed Problem Mononeuropathy of lower limb (773737237) Neuritis of right foot (G57.91) Active confirmed Problem Plantar fasciitis of left foot (882965157921976 01) Plantar fasciitis of left foot (M72.2) Active confirmed Problem 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 Vital Signs Blood pressure diastolic 80 mm Hg 02/23/2025 Height 5ft 7in in 02/23/2025 Blood pressure systolic 120 mm Hg 02/23/2025 Weight 240 lbs 02/23/2025 BMI 37.59 kg/m2 02/23/2025 Encounters Encounter Location Date Provider Diagnosis Surgery [facility] ([facility]) [address] [place] [address] 12/02/2024 Janett Perica [facility] [address] 03/30/2024 Janett Perica Pain in right foot M79.671 and Lesion of plantar nerve, right lower limb G57.61 [facility] [address] [address] 07/15/2024 Janett Perica Pain in right foot M79.671 and Lesion of plantar nerve, right lower limb G57.61 [facility] [address] [address] 11/20/2024 Janett Perica Pain in right foot M79.671 and Lesion of plantar nerve, right lower limb G57.[address] [facility] [address] 12/08/2024 Janett Perica Postoperative visit Z48.89 and Lesion of plantar nerve, right lower limb G57.[address] [facility] [address] 12/15/2024 Janett Perica Postoperative visit Z48.89 and Lesion of plantar nerve, right lower limb G57.61 [facility] [address] 12/29/2024 Janett Perica Postoperative visit Z48.89 ; Lesion of plantar nerve, right lower limb G57.61 ; Neuritis of right foot G57.91 ; Pain in right foot M79.671 and Local edema R60.[address] [facility] [address] 01/27/2025 Janett Perica Postoperative visit Z48.89 ; Lesion of plantar nerve, right lower limb G57.61 ; Neuritis of right foot G57.91 ; Pain in right foot M79.671 and Local edema R60.0 [facility] [address] 02/23/2025 Janett Perica Postoperative visit Z48.89 ; Lesion of plantar nerve, right lower limb G57.61 and Neuritis of right foot G57.91 [facility] [address] 03/30/2024 Janett Perica [facility] [address] 05/07/2024 Janett Perica [facility] [address] 06/25/2024 Janett Perica [facility] [address] 07/15/2024 Janett Perica [facility] [place] [address] [place] [address] 07/22/2024 Janett Magallanesa [facility] [place] [address] [place] [address] 07/24/2024 Janett Perica [facility] [place] [address] [place] [address] 08/24/2024 Janett Perica [facility] [place] [address] [place] [address] 10/26/2024 Janett Perica [facility] [place] [address] [place] [address] 11/20/2024 [facility] [address] [address] 12/03/2024 Janett Magallanesa [facility] [address] [address] 02/23/2025 Janett Taylor Postoperative visit Z48.89 Assessments Encounter Date Diagnosis (ICD Code) Assessment Notes Treatment Notes Treatment Clinical Notes Section Notes 03/30/2024 Pain in right foot (ICD-10 - [...] G57.61) 12/29/2024 Postoperative visit (ICD-10 - Z48.89) 01/27/2025 Postoperative visit (ICD-10 - Z48.89) 02/23/2025 Lesion of plantar nerve, right lower limb (ICD-10 - G57.61) 02/23/2025 Postoperative visit (ICD-10 - Z48.89) 02/23/2025 Postoperative visit (ICD-10 - Z48.89) 02/23/2025 Neuritis of right foot (ICD-10 - G57.91) 01/27/2025 Lesion of plantar nerve, right lower limb (ICD-10 - G57.61) 12/29/2024 Neuritis of right foot (ICD-10 - G57.91) 12/15/2024 Lesion of plantar nerve, right lower limb (ICD-10 - G57.61) 11/20/2024 Lesion of plantar nerve, right lower limb (ICD-10 - G57.61) 03/30/2024 Lesion of plantar nerve, right lower limb (ICD-10 - G57.61) Resistant to previous conservative treatment 12/29/2024 Pain in right foot (ICD-10 - M79.671) 01/27/2025 Neuritis of right foot (ICD-10 - G57.91) 12/29/2024 Local edema (ICD-10 - R60.0) 01/27/2025 Pain in right foot (ICD-10 - M79.671) 01/27/2025 Local edema (ICD-10 - R60.0) Plan Of Treatment Pending Test Test Name Order Date MRI : Foot, right 02/10/2024 X ray : Foot, right 3V 03/30/2024 40888, J0702- Neuroma/Injection 09/16/19 24 67823, J0702- Neuroma/Injection 10/28/19 24 41380, J0702- Neuroma/Injection 12/09/19 24 Next Appt Details Provider Name:Janett fried, 04/07/2025 01:45:00 PM, [address] [place], [address], Insurance Providers Payer Name Payer Address Payer Phone Subscriber Number Group Number Insured Name Patient Relationship to Insured Coverage Start Date Coverage End Date [facility] [address] [place] [address] [id number] Josh Mejia Self - patient is the insured Medical (General) History Medical History History ICD Code chicken pox bone implants/screws back, hip, knee pain Broken bones covid-19 Warts Surgical History Surgery Date(Month/Year) wisdom teeth 2004 breast reduction 2014 Colonoscopy 08/17 Excision of Neuroma Right 3rd Interspace 12/02/24
== END 2025-03-25 09:09 | disposition home or self-care (01) ==
LOC: HO.ENCR 08:26
PROVIDERS: Visit Provider Dietitian, Registered
DX: K76.0 Fatty (change of) liver, not elsewhere classified (principal)

== ENCOUNTER → 2025-03-25 08:25 | Outpatient (BNVA) | payer BC, SELFPAY | PROVIDERS: Visit Provider Dietitian, Registered | DX: Z71.3 Dietary counseling and surveillance (principal); K76.0 Fatty (change of) liver, not elsewhere classified | CPT/HCPCS: 97803 ==

== ENCOUNTER 2025-05-17 14:43 | Outpatient (AMB) | payer BC, SELFPAY ==
[2025-05-17 14:51] VITALS: BP 134/100; PULSE 83; TEMP 36.8; O2SAT 98; BMI 37.6
--- NOTE | 2025-05-17 14:51 | A.OFFPC_ITS ---
Vital Signs 05/17/25 14:51 05/17/25 15:43 Height 5 ft 7 in Weight 240 lb BMI 37.6 BP 134/100 H 150/90 H Blood Pressure Location Lt brachial Lt brachial Position Sitting Sitting Pulse 83 Pulse Source Pulse Oximeter Temp 98.2 F Temp Source Temporal Artery Scan Pulse Oximetry (%) 98 Oxygen Delivery Method Room Air Intake Visit Reasons: poison delta rash, hands, face and arms Intake Note: Patient is here today for a physical. Vp Production Required: No Water Proofer: Not Required per policy Accompanied by: Self / Same As Patient Allergies peanut Allergy (Unknown, Verified 05/17/25 14:51) Unknown shrimp Allergy (Unknown, Verified 05/17/25 14:51) Unknown Medication List - Last Reconciled 05/17/25 by Bethanie Wong PA-C cetirizine (Zyrtec) 10 mg PO DAILY PRN gabapentin 300 mg PO TID hydroxyzine HCl 25 mg PO BEDTIME ibuprofen 800 mg PO TID lisinopril 20 mg PO DAILY lorazepam 1 mg PO TID PRN multivitamin 1 tab PO DAILY Tobacco use date assessed: 01/18/25 Dental Screening Dental Screen Date: 05/17/25 Did you have a dental visit in the last 12 months?: Yes Did you have a dental problem in the last 6 months where you did not have access to dental care?: No Was dental information given to patient?: Patient has dentist HPI poison delta rash, hands, face and arms HPI Details 54 year old female with past medical his tory of hypertension, anxiety, hyperlipidemia, hepatic steatosis last seen 12/2024 coming in for acute problem. Presenting with multiple complaints including a new rash and for chronic condition management. The patient developed a poison delta rash a week ago after redoing a fence; it started on the hand and has since spread to the head, back, and face. The patient has a history of insomnia and is not sleeping well despite taking hydroxyzine 25 mg at bedtime. The patient has a history of hypertension, managed with lisinopril, but has not been checking blood pressure at home recently due to anxiety. The patient has a hiatal hernia and suspects recent side pain is heartburn, which is relieved by taking 1-2 Tums nightly. The patient is making dietary changes, including watching what is eaten, and notes symptoms occur when going to bed. The patient also reports shooting pain in the thumb, suspected to be arthritis, which is exacerbated by crocheting and is managed with a brace for stability. [facility] Medical History Hyperlipidemia Fatty liver Carpal tunnel syndrome, bilateral Surgical History History of foot surgery Hx of wisdom tooth extraction Hx of reduction mammoplasty Family History Father CVD (cardiovascular disease) S/P triple vessel bypass Mother Cancer Bladder cancer Sister Thyroid nodule Paternal Grandmother Stroke Social History Housing: House Alcohol intake: current Alcohol intake frequency: holidays/special occasions only Patient Tobacco Use Status: Former Tobacco user Tobacco use type: Cigarette e-Cigarette/Vaping Use: Never Used Second Hand Smoke Exposure: Yes service: No Current occupational status: employed Cognitive needs: No Hearing needs: No Vision needs: Yes (glasses) Questionnaire Thrive Questionnaire Date Thrive assessed: 10/19/24 I am a: Patient What is your living situation today?: I have a steady place to live Within the past 12 months, did the food you bought not last and you didn't have the money to get more?: Never true Within the past 12 months, did you worry whether your food would run out before you got money to buy more?: Never true Do you have trouble paying for medicines?: No Do you have trouble getting transportation to medical appointments?: No Do you have trouble paying your heating and electricity bill?: No Do you have trouble taking care of your child, family member or friend?: No Do you have trouble with day-to-day activities such as bathing, preparing meals, shopping, managing finances, etc.?: No Are you currently unemployed and looking for a job?: No Are you interested in more education?: No Please select the resources that you would like help with: None Currently or been in a relationship where the following occur: No concerns reported THRIVE Score: 0 AUDIT C Alcohol Use Questionnaire (AUDIT-C) 1. How often do you have a drink containing alcohol?: Monthly or less Total Score: 1 SATHISH-7 AMB Questionnaire SATHISH-7 Date SATHISH - 7 assessed: 08/19/24 Feeling nervous, anxious, or on edge: 1 = Several days Not being able to stop or control worryin = Several days Worrying too much about different things: 0 = Not at all Trouble relaxin = Several days Being so restless that it is hard to sit still: 0 = Not at all Becoming easily annoyed or irritable: 0 = Not at all Feeling afraid as if something awful might happen: 1 = Several days Total SATHISH-7 score (0-4 normal; 5-9 mild; 10-14 moderate; 15-21 severe): 4 Source: Developed by Drs. James Malik, Gregoria San, George Baeza and colleagues, with an educational mario from [employer]. SATHISH-7 Assessment Billing SATHISH-7 Assessment Tool: SATHISH-7 Assessment 61206 Review of Systems Const Denies body aches, Denies chills and Denies fever(s) Eyes Reports no additional complaints ENT Reports no additional complaints Card Denies chest pain, Denies syncope, Denies lightheadedness and Denies dyspnea Resp Denies dyspnea GI Denies constipation, Reports dyspepsia, Reports heartburn and Denies diarrhea Skin/Breast Reports as per HPI Neuro Denies syncope Physical exam (Primary Care) Vital Signs: Last Vital Signs Temp 98.2 F 05/17/25 14:51 Pulse 83 05/17/25 14:51 BP 134/100 H 05/17/25 14:51 Pulse Ox 98 05/17/25 14:51 Oxygen Delivery Method Room Air 05/17/25 14:51 BMI result Body Mass Index 37.6 Tobacco/Smoking Status: Tobacco use Status Tobacco use date assessed 01/18/25 05/17/25 14:52 Patient Tobacco Use Status Former Tobacco user 05/17/25 14:52 Tobacco use type Cigarette 05/17/25 14:52 e-Cigarette/Vaping Use Never Used 05/17/25 14:52 Thrive Assessment: Date of Thrive Assessment Date Thrive assessed 10/19/24 05/17/25 14:52 Currently or been in a relationship where the following occur: No concerns reported Const General: cooperative, healthy appearing, comfortable and no acute distress Orientation/consciousness: patient oriented x3 HENMT Head: Yes normocephalic Ears: hearing grossly normal bilaterally General nose exam: Normal external nose present Eyes General: appearance normal, both eyes and all related structures Conjunctivae: conjunctivae normal Neck Neck: Yes full ROM and Yes no lymphadenopathy Resp Effort & Inspection: normal respiratory effort Cardio Rate: regular rate Skin Other: patches of raised red skin without evidence of infection on the torso, neck and extremities Neuro General: patient oriented x3 Gait exam (Neuro): Normal gait present Extrem General: Yes normal to inspection, Yes full ROM and No edema Psych Affect: normal affect Attitude: cooperative Insight: Good insight present (Psych) Judgement: Good judgement present (Psych) Coding Level of Care Code Est Pt Level 3 (45806) Diagnoses Contact dermatitis L25.9 Hypertension I10 Hepatic steatosis K76.0 GERD (gastroesophageal reflux disease) K21.9 Insomnia G47.00 Additional Codes SATHISH-7 Assessment Billing - SATHISH-7 Assessment Tool: SATHISH-7 Assessment 58226 ([id number]) Assessment & Plan Assessment & Plan (1) Contact dermatitis: Code(s): L25.9 - Unspecified contact dermatitis, unspecified cause Category: Medical Plan: The patient presents with an itchy rash that began a week ago and has spread from the hand to the head, back, and face, consistent with poison delta exposure. An 8-day course of prednisone was prescribed. The patient will continue using hydroxyzine for itching. (2) Hypertension: Code(s): I10 - Essential (primary) hypertension Category: Medical Plan: Continue on current blood pressure medication. Avoid salt intake and encourage healthy diet and regular exercise. Blood pressure elevated in the office today which she believes to be related to anxiety and I did recommend patient monitor the blood pressure at home and reach out if values exceed 140/90. (3) Hepatic steatosis: Code(s): K76.0 - Fatty (change of) liver, not elsewhere classified Category: Medical Plan: Healthy diet and regular exercise is encouraged. (4) GERD (gastroesophageal reflux disease): Code(s): K21.9 - Gastro-esophageal reflux disease without esophagitis Category: Medical Plan: Avoid trigger foods such as citrus, tomato products, soda, caffeine, spicy foods and other foods that may be irritating to your stomach. Avoid laying flat 3-4 hours after eating and elevate the head of the bed 30 degrees to prevent acid from moving into the esophagus. Plan to trial Omeprazole for GERD symptoms. (5) Insomnia: Code(s): G47.00 - Insomnia, unspecified Category: Medical Plan: Plan to increase Hydroxyzine to 50mg today for insomnia. Plan This note was constructed using voice recognition software. While every effort has been made to ensure accuracy and nick setter, still areas may have been included sometimes these areas may affect the content or meeting of the given symptoms. Total time spent caring for the patient today was 20 minutes. This includes time spent before the visit reviewing the chart, time spent during the visit, and time spent after the visit and documentation. Patient was informed and verbally consented to the use of an ambient scribe for clinic note documentation during this visit. Medications: New omeprazole 20 mg PO DAILY 90 caps 0RF prednisone Take 4 tablets on days 1-2, take 3 tablets on days 3-4, take 2 tablets on days 5-6, take 1 tablet on days 7-8. 10 mg PO DIRECTED 20 tabs 0RF hydroxyzine HCl 50 mg PO BEDTIME 90 tabs 0RF Discontinued hydroxyzine HCl Discontinued Reason: Patient no longer taking 25 mg PO BEDTIME 90 tabs 1RF
[2025-05-17 15:43] VITALS: BP 150/90
== END 2025-05-17 15:53 | disposition home or self-care (01) ==
LOC: HO.HMCH 14:44
DX: L25.9 Unspecified contact dermatitis, unspecified cause (principal); I10 Essential (primary) hypertension; K76.0 Fatty (change of) liver, not elsewhere classified; K21.9 Gastro-esophageal reflux disease without esophagitis; G47.00 Insomnia, unspecified

== ENCOUNTER → 2025-05-17 14:43 | Outpatient (BNVA) | payer BC, SELFPAY | DX: L23.7 Allergic contact dermatitis due to plants, except food (principal); G47.00 Insomnia, unspecified; I10 Essential (primary) hypertension; K76.0 Fatty (change of) liver, not elsewhere classified; K21.9 Gastro-esophageal reflux disease without esophagitis | CPT/HCPCS: 96127 ==